=== PATIENT | male | born 1950 | race Hispanic/Latino ===

== ENCOUNTER 2020-10-16 14:14 | Inpatient (IN) | payer MEDICAID, SELFPAY ==
[2020-10-16 14:34] LABS: #Basophils 0.1 thou/uL (0.0-0.2); #Eosinphils 0.1 thou/uL (0.0-0.7); #Lymphocytes 1.3 thou/uL (1.20-3.40); #Monocytes 0.6 thou/uL (0.11-0.59); #Neutrophils 5.7 thou/uL (1.40-6.50); %Eosinophils 1.7 % (0.0-10.0); %Lymphocytes 16.4 % (21.0-51.0); %Neutrophils 73.9 % (42.0-75.0); Hemoglobin 9.4 g/dL (14.0-18.0); Mean Corpuscular HGB CONC 32.7 g/dL (32.0-36.0); Mean Corpuscular Hemoglobin 32.8 pg (27.0-31.0); Mean Platelet Volume 8.2 fL (7.4-10.4); Platelet Count 202 thou/uL (130-400); RBC Distribution Width 12.6 % (11.5-14.5); Red Blood Cell (RBC) Count 2.87 mill/uL (4.70-6.10); White Blood Cell (WBC) Count 7.8 thou/uL (4.8-10.8)
[2020-10-16 14:56] LABS: ALT (SGPT) 9 U/L (8-55); AST (SGOT) 8 U/L (5-34); Albumin 3.4 g/dL (3.4-4.8); Alkaline Phosphatase 104 U/L (40-110); Anion Gap 17 mmol/L (10-20); BUN (Urea Nitrogen) 66 mg/dL (8.4-25.7); Bilirubin, Total 0.4 mg/dL (0.2-1.2); Calc. Creatinine Clearance 0 mL/min (70-130); Carbon Dioxide 16 mmol/L (23-31); Chloride 111 mmol/L (98-107); Globulin 3.2 g/dL (2.4-3.5); Glucose 88 mg/dL (80-115); Potassium 6.1 mmol/L (3.5-5.1); Protein, Total 6.6 g/dL (5.8-8.1); Sodium 138 mmol/L (136-145)
[2020-10-16] MEDS ORDERED: Furosemide 40 MG/4 ML VIAL ONE (16:20)
[2020-10-16 18:36] VITALS: BMI 31.2
[2020-10-16 21:53] LABS: Creatinine, Urine 29.17 mg/dL (63-166)
[2020-10-16 22:05] LABS: Troponin I 0.019 ng/mL (< 0.028)
[2020-10-16] MEDS: Heparin 5,000 UNITS/ML VIAL SC SCH (22:05)
[2020-10-16] MEDS: LOKELMA 10 GM PACKET PO SCH (22:05)
[2020-10-17 04:38] LABS: #Eosinphils 0.2 thou/uL (0.0-0.7); #Lymphocytes 1.3 thou/uL (1.20-3.40); #Monocytes 0.4 thou/uL (0.11-0.59); #Neutrophils 3.7 thou/uL (1.40-6.50); %Basophils 0.8 % (0.0-1.0); %Eosinophils 2.7 % (0.0-10.0); %Lymphocytes 23.2 % (21.0-51.0); %Monocytes 7.8 % (0.0-10.0); %Neutrophils 65.5 % (42.0-75.0); Hemoglobin 8.2 g/dL (14.0-18.0); Mean Corpuscular HGB CONC 33.2 g/dL (32.0-36.0); Mean Corpuscular Hemoglobin 33.4 pg (27.0-31.0); Mean Platelet Volume 8.7 fL (7.4-10.4); Platelet Count 168 thou/uL (130-400); RBC Distribution Width 12.5 % (11.5-14.5); Red Blood Cell (RBC) Count 2.45 mill/uL (4.70-6.10); White Blood Cell (WBC) Count 5.6 thou/uL (4.8-10.8)
[2020-10-17 04:45] LABS: Hemoglobin A1c 4.9 % (4.0-6.0)
[2020-10-17 05:07] LABS: Anion Gap 14 mmol/L (10-20); BUN (Urea Nitrogen) 67 mg/dL (8.4-25.7); Calc. Creatinine Clearance 9 mL/min (70-130); Calcium 6.8 mg/dL (7.8-10.44); Carbon Dioxide 18 mmol/L (23-31); Cardiac Risk 2.6 (Less than 4.5); Chloride 111 mmol/L (98-107); Cholesterol 110 mg/dl (< 200 Desired); Glucose 71 mg/dL (80-115); HDL Cholesterol 43 mg/dL (>60 Neg Risk); Iron 53 ug/dL (65-175); Iron Binding Capacity, Total 243 mcg/dL (261-462); LDL Cholesterol, Calculated 56 mg/dL; Potassium 5.7 mmol/L (3.5-5.1); Sodium 137 mmol/L (136-145); Triglycerides 53 mg/dL (Less than 150); Uric Acid 6.4 mg/dL (3.5-7.2)
[2020-10-17 05:20] LABS: Ferritin 35.69 ng/mL (22-322); Thyroid Stimulating Hormone 5.9548 uIU/mL (0.35-4.94)
[2020-10-17 05:21] LABS: Vitamin D, 25 Hydroxy 10.8 ng/ml (> 30.0)
[2020-10-17 05:48] LABS: SARS-CoV-2 NAA Rapid Test Not Detected (NotDetected)
[2020-10-17] MEDS ORDERED: Heparin 10,000 UNITS/ 10 ML VIAL ONE (08:43)
[2020-10-17] MEDS: Heparin 5,000 UNITS/ML VIAL SC SCH ×3 (09:29→20:41)
[2020-10-17] MEDS: LOKELMA 10 GM PACKET PO SCH (09:38)
[2020-10-17] MEDS ORDERED: Lidocaine 1% w/Epinephrine 1:100K 20 ML VIAL FS SCH (10:00)
[2020-10-17] MEDS: Ferrous Sulfate 325 MG TAB PO SCH ×2 (10:33→17:55)
[2020-10-17] MEDS: Cyanocobalamin (Vitamin B-12) 1,000 MCG TAB PO SCH (10:33)
[2020-10-17] MEDS: Folic Acid 1 MG TAB PO SCH (10:33)
[2020-10-17] MEDS: hydrALAZINE 20 MG/ML VIAL SLOW IVP PRN ×2 (12:17→23:39)
[2020-10-17 12:32] LABS: HBSAB Concentration Less than 8.00 mIU/mL; HBSAg Index 0.14 S/CO (0-0.99); Hep B Core Total Ab Non-Reactive (NonReactive); Hep B Core Total Index 0.05 S/CO (0-0.79); Hep B Surf AB Non-Reactive (NonReactive); Hep B Surf Ag Non-Reactive S/CO (NonReactive); Hep C IgG Ab Non-Reactive (NonReactive); Hep C Index 0.79 S/CO (0-0.79)
[2020-10-17] MEDS ORDERED: Tuberculin PPD 0.1 ML VIAL I-DERMAL SCH (17:00)
[2020-10-17] MEDS: EPOETIN ALFA-EPBX (ESRD) 10,000 UNIT/ML VIAL IVP SCH (17:05)
[2020-10-18 05:49] LABS: Anion Gap 16 mmol/L (10-20); BUN (Urea Nitrogen) 48 mg/dL (8.4-25.7); Calc. Creatinine Clearance 11 mL/min (70-130); Calcium 6.8 mg/dL (7.8-10.44); Carbon Dioxide 20 mmol/L (23-31); Chloride 109 mmol/L (98-107); Glucose 72 mg/dL (80-115); Potassium 4.4 mmol/L (3.5-5.1); Sodium 141 mmol/L (136-145)
[2020-10-18] MEDS ORDERED: Heparin 10,000 UNITS/ 10 ML VIAL ONE (08:47)
[2020-10-18] MEDS: Calcium Carbonate 500 MG ChewTAB PO SCH ×3 (09:07→20:45)
[2020-10-18] MEDS: Ferrous Sulfate 325 MG TAB PO SCH ×2 (09:07→17:10)
[2020-10-18] MEDS: Folic Acid 1 MG TAB PO SCH (09:08)
[2020-10-18] MEDS: Cyanocobalamin (Vitamin B-12) 1,000 MCG TAB PO SCH (09:08)
[2020-10-18] MEDS: Amlodipine 5 MG TAB PO SCH (09:08)
[2020-10-18] MEDS: Heparin 5,000 UNITS/ML VIAL SC SCH ×3 (09:09→20:43)
[2020-10-18] MEDS: Calcitriol 0.25 MCG CAP PO SCH (09:09)
[2020-10-18 16:02] LABS: ANA Symphony (Qualitative) Negative (Negative); ANA Symphony (Quantitative) 0.3 Ratio (< 0.7 Negative); dsDNA IgG Antibody 0.6 IU/mL (<10 Negative)
[2020-10-18] MEDS: hydrALAZINE 20 MG/ML VIAL SLOW IVP PRN (17:10)
[2020-10-18] MEDS ORDERED: Carvedilol 6.25 MG TAB PO SCH (18:15)
[2020-10-18] MEDS: hydrALAZINE 25 MG TAB PO SCH (20:44)
[2020-10-18] MEDS: Iron, Sodium Ferric Gluconate 250 MG in Sodium Chloride 0.9% 250 ML 250 ML IVPB SCH (21:31)
[2020-10-19 05:22] LABS: Anion Gap 15 mmol/L (10-20); BUN (Urea Nitrogen) 32 mg/dL (8.4-25.7); Calc. Creatinine Clearance 14 mL/min (70-130); Calcium 6.8 mg/dL (7.8-10.44); Carbon Dioxide 23 mmol/L (23-31); Chloride 105 mmol/L (98-107); Glucose 85 mg/dL (80-115); Potassium 3.7 mmol/L (3.5-5.1); Sodium 139 mmol/L (136-145)
[2020-10-19 05:41] LABS: Free T4 (Free Thyroxine) 0.77 ng/dL (0.70-1.48); Thyroid Stimulating Hormone 5.4458 uIU/mL (0.35-4.94)
[2020-10-19] MEDS ORDERED: Heparin 5,000 UNITS/ML VIAL ONE (06:47)
[2020-10-19] MEDS ORDERED: XYLOCAINE 2%-EPI 1:100,000 20 ML VIAL ONE (06:47)
[2020-10-19] MEDS ORDERED: Bupivacaine PF 0.5% 30 ML VIAL ONE (06:47)
[2020-10-19] MEDS ORDERED: Heparin 10,000 UNITS/ 10 ML VIAL ONE (06:47)
[2020-10-19] MEDS ORDERED: Protamine Sulfate 50 MG/5 ML VIAL ONE (06:47)
[2020-10-19] MEDS ORDERED: Sodium Chloride 0.9% 30 ML ONE (06:47)
[2020-10-19] MEDS ORDERED: Ioversol 68 % 50 ML VIAL ONE (06:47)
[2020-10-19] MEDS ORDERED: Fentanyl 100 MCG/2 ML VIAL ONE ×2 (08:53)
[2020-10-19] MEDS ORDERED: Propofol 1,000 MG/100 ML VIAL IV ONE (09:37)
[2020-10-19] MEDS ORDERED: ePHEDrine Sulfate 50 MG/10 ML VIAL ONE (09:39)
[2020-10-19] MEDS ORDERED: Bupivacaine HCl 0.5%/Epinephrine 1:200,000/PF 30 ml Vial ONE (09:39)
[2020-10-19] MEDS: Calcium Carbonate 500 MG ChewTAB PO SCH ×3 (11:56→20:12)
[2020-10-19] MEDS: Carvedilol 6.25 MG TAB PO SCH ×2 (11:56→16:42)
[2020-10-19] MEDS: Heparin 5,000 UNITS/ML VIAL SC SCH ×3 (11:56→20:25)
[2020-10-19] MEDS: Ferrous Sulfate 325 MG TAB PO SCH ×2 (11:56→16:42)
[2020-10-19] MEDS: hydrALAZINE 25 MG TAB PO SCH ×2 (11:57→20:12)
[2020-10-19] MEDS ORDERED: Acetaminophen 500 MG TAB PO PRN (12:03)
[2020-10-19] MEDS ORDERED: traMADol HCl 50 MG TAB PO PRN (12:03)
[2020-10-19] MEDS ORDERED: CEFAZOLIN 2 GM in Premix Bag 1 BAG IVPB SCH (12:15)
[2020-10-19] MEDS: Amlodipine 5 MG TAB PO SCH (12:22)
[2020-10-19] MEDS: Calcitriol 0.25 MCG CAP PO SCH (12:23)
[2020-10-19] MEDS: Cyanocobalamin (Vitamin B-12) 1,000 MCG TAB PO SCH (12:23)
[2020-10-19] MEDS: Folic Acid 1 MG TAB PO SCH (12:23)
[2020-10-19] MEDS: Iron, Sodium Ferric Gluconate 250 MG in Sodium Chloride 0.9% 250 ML 250 ML IVPB SCH (12:32)
[2020-10-19] MEDS ORDERED: READ PPD TEST SITE PO SCH (17:00)
[2020-10-19] MEDS ORDERED: Iron, Sodium Ferric Gluconate 250 MG in Sodium Chloride 0.9% 250 ML 250 ML IVPB SCH (21:00)
[2020-10-20 04:46] LABS: #Eosinphils 0.1 thou/uL (0.0-0.7); #Monocytes 0.8 thou/uL (0.11-0.59); #Neutrophils 4.7 thou/uL (1.40-6.50); %Basophils 0.4 % (0.0-1.0); %Eosinophils 1.8 % (0.0-10.0); %Lymphocytes 14.7 % (21.0-51.0); %Monocytes 11.4 % (0.0-10.0); %Neutrophils 71.7 % (42.0-75.0); Hemoglobin 7.7 g/dL (14.0-18.0); Mean Corpuscular HGB CONC 34.4 g/dL (32.0-36.0); Mean Corpuscular Hemoglobin 34.2 pg (27.0-31.0); Mean Corpuscular Volume 99.5 fL (78.0-98.0); Platelet Count 129 thou/uL (130-400); RBC Distribution Width 12.4 % (11.5-14.5); Red Blood Cell (RBC) Count 2.25 mill/uL (4.70-6.10); White Blood Cell (WBC) Count 6.6 thou/uL (4.8-10.8)
[2020-10-20 05:07] LABS: Anion Gap 14 mmol/L (10-20); BUN (Urea Nitrogen) 35 mg/dL (8.4-25.7); Calc. Creatinine Clearance 11 mL/min (70-130); Calcium 7.1 mg/dL (7.8-10.44); Carbon Dioxide 24 mmol/L (23-31); Chloride 104 mmol/L (98-107); Glucose 77 mg/dL (80-115); Potassium 3.9 mmol/L (3.5-5.1); Sodium 138 mmol/L (136-145)
[2020-10-20] MEDS ORDERED: Heparin 10,000 UNITS/ 10 ML VIAL ONE (08:43)
[2020-10-20] MEDS ORDERED: traMADol HCl 50 MG TAB PO PRN (10:24)
[2020-10-20] MEDS: EPOETIN ALFA-EPBX (ESRD) 10,000 UNIT/ML VIAL IVP SCH (11:20)
[2020-10-20] MEDS: hydrALAZINE 25 MG TAB PO SCH ×2 (12:10→14:38)
[2020-10-20] MEDS: Calcium Carbonate 500 MG ChewTAB PO SCH ×2 (12:10→14:38)
[2020-10-20] MEDS: Cyanocobalamin (Vitamin B-12) 1,000 MCG TAB PO SCH (12:11)
[2020-10-20] MEDS: Calcitriol 0.25 MCG CAP PO SCH (12:11)
[2020-10-20] MEDS: Carvedilol 6.25 MG TAB PO SCH ×2 (12:11→17:06)
[2020-10-20] MEDS: Ferrous Sulfate 325 MG TAB PO SCH ×2 (12:11→17:07)
[2020-10-20] MEDS: Folic Acid 1 MG TAB PO SCH (12:11)
[2020-10-20] MEDS: Heparin 5,000 UNITS/ML VIAL SC SCH ×2 (12:12→14:39)
[2020-10-20 15:07] VITALS: BP 131/60; TEMP 98.1
[2020-10-20] MEDS ORDERED: READ PPD TEST SITE PO SCH (17:00)
[2020-10-24] MEDS ORDERED: Ergocalciferol 1.25 MG(50,000 UNITS) CAP PO SCH (09:00)
== END 2020-10-20 17:17 | disposition home or self-care (01) | DRG 673 ==
LOC: ERS 14:14 → 2NO 16:23
PROVIDERS: ADMIT Internal Medicine; ATTEND Internal Medicine
PROC: 02H633Z Insertion of Infusion Device into Right Atrium, Percutaneous Approach (ICD-10-PCS; 2020-10-17)
PROC: 5A1D70Z Performance of Urinary Filtration, Intermittent, Less than 6 Hours Per Day (ICD-10-PCS; 2020-10-18)
PROC: 031C0ZF Bypass Left Radial Artery to Lower Arm Vein, Open Approach (ICD-10-PCS; principal; 2020-10-19)
PROC: 0JH60XZ Insertion of Tunneled Vascular Access Device into Chest Subcutaneous Tissue and Fascia, Open Approach (ICD-10-PCS; 2020-10-19)
PROC: 02HV33Z Insertion of Infusion Device into Superior Vena Cava, Percutaneous Approach (ICD-10-PCS; 2020-10-19)
PROC: B548ZZA Ultrasonography of Superior Vena Cava, Guidance (ICD-10-PCS; 2020-10-19)
DX: N17.9 Acute kidney failure, unspecified (principal); I50.21 Acute systolic (congestive) heart failure; I13.2 Hypertensive heart and chronic kidney disease with heart failure and with stage 5 chronic kidney disease, or end stage renal disease; E87.2 Acidosis; N18.6 End stage renal disease; N25.81 Secondary hyperparathyroidism of renal origin; D50.9 Iron deficiency anemia, unspecified; D52.9 Folate deficiency anemia, unspecified; E55.9 Vitamin D deficiency, unspecified; E11.22 Type 2 diabetes mellitus with diabetic chronic kidney disease; D63.1 Anemia in chronic kidney disease; E87.5 Hyperkalemia; Z20.822 Contact with and (suspected) exposure to COVID-19; Z89.421 Acquired absence of other right toe(s); Z97.8 Presence of other specified devices
CPT/HCPCS: 36415; 36416; 71045; 76770; 80048; 80053; 80061; 82306; 82570; 82607; 82728; 82746; 83036; 83540; 83550; 83880; 83970; 84156; 84439; 84443; 84484; 84550; 85025; 86038; 86225; 86580; 86704; 86706; 86803; 87340; 90935; 93005; 93306; 93970; 94760; 96374; C1751; C1752; G0257; J0360; J0690; J1644; J1940; J2704; J2720; J2916; J3010; J7050; Q5105; Q9967; S0020; U0002; U0005

== ENCOUNTER 2020-10-27 13:18 | Inpatient (IN) | payer MEDICAID ==
[~2020-10-27 13:18] MED LIST: Heparin 10,000 UNITS/ 10 ML VIAL ONE
[2020-10-27 15:52] LABS: #Eosinphils 0.2 thou/uL (0.0-0.7); #Monocytes 0.8 thou/uL (0.11-0.59); #Neutrophils 4.9 thou/uL (1.40-6.50); %Basophils 0.5 % (0.0-1.0); %Eosinophils 2.3 % (0.0-10.0); %Lymphocytes 13.9 % (21.0-51.0); %Monocytes 11.7 % (0.0-10.0); %Neutrophils 71.6 % (42.0-75.0); Hemoglobin 7.8 g/dL (14.0-18.0); Mean Corpuscular HGB CONC 32.5 g/dL (32.0-36.0); Mean Corpuscular Hemoglobin 33.2 pg (27.0-31.0); Mean Platelet Volume 7.9 fL (7.4-10.4); Platelet Count 154 thou/uL (130-400); RBC Distribution Width 13.7 % (11.5-14.5); Red Blood Cell (RBC) Count 2.36 mill/uL (4.70-6.10); White Blood Cell (WBC) Count 6.9 thou/uL (4.8-10.8)
[2020-10-27 16:22] LABS: ALT (SGPT) 8 U/L (8-55); AST (SGOT) 16 U/L (5-34); Albumin 3.4 g/dL (3.4-4.8); Alkaline Phosphatase 108 U/L (40-110); Anion Gap 15 mmol/L (10-20); BUN (Urea Nitrogen) 55 mg/dL (8.4-25.7); Bilirubin, Total 0.5 mg/dL (0.2-1.2); Calc. Creatinine Clearance 0 mL/min (70-130); Calcium 8.3 mg/dL (7.8-10.44); Carbon Dioxide 24 mmol/L (23-31); Chloride 104 mmol/L (98-107); Globulin 3.1 g/dL (2.4-3.5); Glucose 96 mg/dL (80-115); Protein, Total 6.5 g/dL (5.8-8.1); Sodium 136 mmol/L (136-145)
[2020-10-27 16:30] LABS: Potassium 6.6 mmol/L (3.5-5.1)
[2020-10-27] MEDS ORDERED: Calcium Gluc 4.6 MEQ/10 ML (100 MG/ML) ONE (17:45)
[2020-10-27] MEDS ORDERED: Sodium Bicarb 50 MEQ/50 ML Abboject 8.4% SYRINGE ONE (17:45)
[2020-10-27] MEDS ORDERED: Albuterol Sulfate 1.25 MG/3 ML NEB ONE (17:45)
[2020-10-27] MEDS ORDERED: Dextrose 50% Abboject 50 ML SYRINGE ONE (17:45)
[2020-10-27] MEDS ORDERED: Insulin Regular 300 UNITS/3 ML VIAL ONE (17:45)
[2020-10-27 19:22] LABS: Anion Gap 19 mmol/L (10-20); BUN (Urea Nitrogen) 54 mg/dL (8.4-25.7); Calc. Creatinine Clearance 0 mL/min (70-130); Calcium 8.4 mg/dL (7.8-10.44); Carbon Dioxide 22 mmol/L (23-31); Chloride 103 mmol/L (98-107); Potassium 6.3 mmol/L (3.5-5.1); Sodium 138 mmol/L (136-145)
[2020-10-27 19:31] LABS: SARS-CoV-2 NAA Rapid Test Not Detected (NotDetected)
[2020-10-27 19:33] LABS: Glucose 140 mg/dL (80-115)
[2020-10-28] MEDS ORDERED: Ondansetron PF 4 MG/2 ML Vial IVP PRN (01:00)
[2020-10-28] MEDS ORDERED: Acetaminophen 325 MG TAB PO PRN (01:00)
[2020-10-28] MEDS ORDERED: hydrALAZINE 20 MG/ML VIAL SLOW IVP PRN (01:02)
[2020-10-28] MEDS ORDERED: Dextrose 50% Abboject 50 ML SYRINGE SLOW IVP PRN (01:07)
[2020-10-28] MEDS ORDERED: HumaLOG 300 UNITS/3 ML VIAL SC PRN ×2 (01:07)
[2020-10-28] MEDS ORDERED: Dextrose 5% in Water 1,000 ML IV PRN (01:07)
[2020-10-28 02:15] LABS: #Eosinphils 0.1 thou/uL (0.0-0.7); #Monocytes 0.7 thou/uL (0.11-0.59); #Neutrophils 4.5 thou/uL (1.40-6.50); %Basophils 0.3 % (0.0-1.0); %Eosinophils 2.1 % (0.0-10.0); %Lymphocytes 15.2 % (21.0-51.0); %Monocytes 10.7 % (0.0-10.0); %Neutrophils 71.8 % (42.0-75.0); Hemoglobin 7.3 g/dL (14.0-18.0); Mean Corpuscular HGB CONC 32.9 g/dL (32.0-36.0); Mean Corpuscular Hemoglobin 33.5 pg (27.0-31.0); Mean Platelet Volume 7.7 fL (7.4-10.4); Platelet Count 143 thou/uL (130-400); RBC Distribution Width 13.7 % (11.5-14.5); Red Blood Cell (RBC) Count 2.17 mill/uL (4.70-6.10); White Blood Cell (WBC) Count 6.2 thou/uL (4.8-10.8)
[2020-10-28 02:33] LABS: Anion Gap 11 mmol/L (10-20); BUN (Urea Nitrogen) 28 mg/dL (8.4-25.7); Calc. Creatinine Clearance 0 mL/min (70-130); Calcium 8.2 mg/dL (7.8-10.44); Carbon Dioxide 27 mmol/L (23-31); Chloride 103 mmol/L (98-107); Glucose 168 mg/dL (80-115); Potassium 4.4 mmol/L (3.5-5.1); Sodium 137 mmol/L (136-145)
[2020-10-28 04:06] VITALS: BMI 33.4
[2020-10-28] MEDS: Amlodipine 5 MG TAB PO SCH (08:47)
[2020-10-28] MEDS: Carvedilol 6.25 MG TAB PO SCH ×2 (08:48→17:39)
[2020-10-28] MEDS ORDERED: EPOETIN ALFA-EPBX (ESRD) 10,000 UNIT/ML VIAL SC SCH (16:00)
[2020-10-29 05:16] LABS: #Eosinphils 0.2 thou/uL (0.0-0.7); #Lymphocytes 1.3 thou/uL (1.20-3.40); #Monocytes 0.7 thou/uL (0.11-0.59); #Neutrophils 3.3 thou/uL (1.40-6.50); %Basophils 0.8 % (0.0-1.0); %Lymphocytes 24.6 % (21.0-51.0); %Monocytes 12.1 % (0.0-10.0); %Neutrophils 59.6 % (42.0-75.0); Mean Corpuscular HGB CONC 32.4 g/dL (32.0-36.0); Mean Corpuscular Hemoglobin 33.3 pg (27.0-31.0); Platelet Count 153 thou/uL (130-400); RBC Distribution Width 13.5 % (11.5-14.5); Red Blood Cell (RBC) Count 2.09 mill/uL (4.70-6.10); White Blood Cell (WBC) Count 5.5 thou/uL (4.8-10.8)
[2020-10-29 05:37] LABS: Anion Gap 15 mmol/L (10-20); BUN (Urea Nitrogen) 42 mg/dL (8.4-25.7); Calc. Creatinine Clearance 14 mL/min (70-130); Calcium 7.8 mg/dL (7.8-10.44); Carbon Dioxide 26 mmol/L (23-31); Chloride 103 mmol/L (98-107); Glucose 81 mg/dL (80-115); Potassium 5.5 mmol/L (3.5-5.1); Sodium 138 mmol/L (136-145)
[2020-10-29] MEDS ORDERED: Heparin 5,000 UNITS/ML VIAL SC SCH (09:00)
[2020-10-29] MEDS ORDERED: Heparin 10,000 UNITS/ 10 ML VIAL ONE (09:13)
[2020-10-29] MEDS: Carvedilol 6.25 MG TAB PO SCH (11:56)
[2020-10-29] MEDS: Amlodipine 5 MG TAB PO SCH (11:57)
[2020-10-29 12:26] VITALS: BP 178/71; TEMP 97.9
== END 2020-10-29 14:11 | disposition home or self-care (01) | DRG 291 ==
LOC: ERS 13:18 → 2SW 18:32 → OBSVTOIN 10-28 20:44
PROVIDERS: ADMIT Internal Medicine; ATTEND Internal Medicine
PROC: 5A1D70Z Performance of Urinary Filtration, Intermittent, Less than 6 Hours Per Day (ICD-10-PCS; principal; 2020-10-28)
DX: I13.2 Hypertensive heart and chronic kidney disease with heart failure and with stage 5 chronic kidney disease, or end stage renal disease (principal); I50.23 Acute on chronic systolic (congestive) heart failure; N18.6 End stage renal disease; N17.9 Acute kidney failure, unspecified; D63.1 Anemia in chronic kidney disease; E78.5 Hyperlipidemia, unspecified; E11.22 Type 2 diabetes mellitus with diabetic chronic kidney disease; E66.9 Obesity, unspecified; Z99.2 Dependence on renal dialysis; Z79.899 Other long term (current) drug therapy; Z87.891 Personal history of nicotine dependence; Z68.33 Body mass index [BMI] 33.0-33.9, adult; Z91.15 Patient's noncompliance with renal dialysis
CPT/HCPCS: 36415; 36416; 80048; 80053; 85025; 90935; 93005; 96372; 96374; 96375; G0257; G0378; J1644; J1815; J2001; Q5105; U0002; U0005

== ENCOUNTER 2020-11-04 13:40 | Emergency (ER) | payer MEDICAID, SELFPAY ==
[2020-11-04 14:28] LABS: #Eosinphils 0.1 thou/uL (0.0-0.7); #Lymphocytes 1.2 thou/uL (1.20-3.40); #Monocytes 0.8 thou/uL (0.11-0.59); #Neutrophils 5.5 thou/uL (1.40-6.50); %Basophils 0.1 % (0.0-1.0); %Eosinophils 1.4 % (0.0-10.0); %Lymphocytes 15.5 % (21.0-51.0); %Monocytes 10.2 % (0.0-10.0); %Neutrophils 72.8 % (42.0-75.0); Hemoglobin 8.2 g/dL (14.0-18.0); Mean Corpuscular HGB CONC 32.6 g/dL (32.0-36.0); Mean Corpuscular Hemoglobin 33.6 pg (27.0-31.0); Mean Platelet Volume 7.8 fL (7.4-10.4); Platelet Count 215 thou/uL (130-400); RBC Distribution Width 13.9 % (11.5-14.5); Red Blood Cell (RBC) Count 2.45 mill/uL (4.70-6.10); White Blood Cell (WBC) Count 7.5 thou/uL (4.8-10.8)
[2020-11-04 14:48] LABS: ALT (SGPT) 8 U/L (8-55); AST (SGOT) 12 U/L (5-34); Albumin 3.6 g/dL (3.4-4.8); Alkaline Phosphatase 122 U/L (40-110); Anion Gap 16 mmol/L (10-20); BUN (Urea Nitrogen) 56 mg/dL (8.4-25.7); Bilirubin, Total 0.4 mg/dL (0.2-1.2); Calc. Creatinine Clearance 0 mL/min (70-130); Calcium 8.2 mg/dL (7.8-10.44); Carbon Dioxide 26 mmol/L (23-31); Chloride 98 mmol/L (98-107); Globulin 2.9 g/dL (2.4-3.5); Glucose 158 mg/dL (80-115); Potassium 5.7 mmol/L (3.5-5.1); Protein, Total 6.5 g/dL (5.8-8.1); Sodium 134 mmol/L (136-145)
[2020-11-04 16:41] LABS: HBSAg Index 0.22 S/CO (0-0.99); Hep B Surf Ag Non-Reactive S/CO (NonReactive)
== END 2020-11-05 00:13 | disposition home or self-care (01) ==
LOC: ERS 13:40
DX: I12.0 Hypertensive chronic kidney disease with stage 5 chronic kidney disease or end stage renal disease (principal); E11.22 Type 2 diabetes mellitus with diabetic chronic kidney disease; N18.6 End stage renal disease; E87.6 Hypokalemia; Z99.2 Dependence on renal dialysis
CPT/HCPCS: 36415; 71045; 80053; 83880; 85025; 87340; 90935; 93005; G0257; J1644

== ENCOUNTER 2020-11-09 15:19 | Emergency (ER) | payer MEDICAID, SELFPAY ==
[2020-11-09 16:20] LABS: #Eosinphils 0.2 thou/uL (0.0-0.7); #Lymphocytes 1.1 thou/uL (1.20-3.40); #Monocytes 0.7 thou/uL (0.11-0.59); #Neutrophils 4.6 thou/uL (1.40-6.50); %Basophils 0.6 % (0.0-1.0); %Eosinophils 2.3 % (0.0-10.0); %Lymphocytes 16.8 % (21.0-51.0); %Monocytes 10.7 % (0.0-10.0); %Neutrophils 69.5 % (42.0-75.0); Hemoglobin 8.2 g/dL (14.0-18.0); Mean Corpuscular HGB CONC 33.4 g/dL (32.0-36.0); Mean Corpuscular Hemoglobin 34.8 pg (27.0-31.0); Mean Platelet Volume 7.6 fL (7.4-10.4); Platelet Count 184 thou/uL (130-400); RBC Distribution Width 13.7 % (11.5-14.5); Red Blood Cell (RBC) Count 2.35 mill/uL (4.70-6.10); White Blood Cell (WBC) Count 6.7 thou/uL (4.8-10.8)
[2020-11-09 16:45] LABS: ALT (SGPT) 14 U/L (8-55); AST (SGOT) 14 U/L (5-34); Albumin 3.5 g/dL (3.4-4.8); Alkaline Phosphatase 135 U/L (40-110); Anion Gap 17 mmol/L (10-20); BUN (Urea Nitrogen) 61 mg/dL (8.4-25.7); Bilirubin, Total 0.5 mg/dL (0.2-1.2); CK (CPK) 66 U/L (30-200); Calc. Creatinine Clearance 0 mL/min (70-130); Calcium 8.2 mg/dL (7.8-10.44); Carbon Dioxide 23 mmol/L (23-31); Chloride 103 mmol/L (98-107); Globulin 3.1 g/dL (2.4-3.5); Glucose 124 mg/dL (80-115); Protein, Total 6.6 g/dL (5.8-8.1); Sodium 137 mmol/L (136-145)
== END 2020-11-10 00:17 | disposition home or self-care (01) ==
LOC: ERS 15:19
DX: I12.0 Hypertensive chronic kidney disease with stage 5 chronic kidney disease or end stage renal disease (principal); E11.22 Type 2 diabetes mellitus with diabetic chronic kidney disease; N18.6 End stage renal disease; Z99.2 Dependence on renal dialysis
CPT/HCPCS: 36415; 71045; 80053; 82550; 83880; 84484; 85025; 93005; J1644

== ENCOUNTER 2020-11-16 11:59 | Emergency (ER) | payer MEDICAID, SELFPAY ==
[2020-11-16 12:49] LABS: #Eosinphils 0.1 thou/uL (0.0-0.7); #Lymphocytes 1.1 thou/uL (1.20-3.40); #Monocytes 0.7 thou/uL (0.11-0.59); #Neutrophils 5.3 thou/uL (1.40-6.50); %Basophils 0.3 % (0.0-1.0); %Lymphocytes 15.6 % (21.0-51.0); %Monocytes 9.5 % (0.0-10.0); %Neutrophils 72.5 % (42.0-75.0); Hemoglobin 8.6 g/dL (14.0-18.0); Mean Corpuscular HGB CONC 32.2 g/dL (32.0-36.0); Mean Corpuscular Hemoglobin 33.6 pg (27.0-31.0); Mean Platelet Volume 8.6 fL (7.4-10.4); Platelet Count 202 thou/uL (130-400); RBC Distribution Width 13.1 % (11.5-14.5); Red Blood Cell (RBC) Count 2.55 mill/uL (4.70-6.10); White Blood Cell (WBC) Count 7.3 thou/uL (4.8-10.8)
[2020-11-16 13:06] LABS: ALT (SGPT) 15 U/L (8-55); AST (SGOT) 10 U/L (5-34); Albumin 3.7 g/dL (3.4-4.8); Alkaline Phosphatase 162 U/L (40-110); Anion Gap 18 mmol/L (10-20); BUN (Urea Nitrogen) 75 mg/dL (8.4-25.7); Bilirubin, Total 0.5 mg/dL (0.2-1.2); Calc. Creatinine Clearance 0 mL/min (70-130); Calcium 8.5 mg/dL (7.8-10.44); Carbon Dioxide 20 mmol/L (23-31); Chloride 103 mmol/L (98-107); Globulin 3.3 g/dL (2.4-3.5); Glucose 115 mg/dL (80-115); Potassium 6.2 mmol/L (3.5-5.1); Sodium 135 mmol/L (136-145)
[2020-11-16] MEDS ORDERED: EPOETIN ALFA-EPBX (ESRD) 10,000 UNIT/ML VIAL IVP SCH (15:30)
[2020-11-16] MEDS ORDERED: Epoetin (ESRD) 20,000 UNITS/ML IVP SCH (15:30)
== END 2020-11-16 23:37 | disposition home or self-care (01) ==
LOC: ERS 11:59
DX: I12.0 Hypertensive chronic kidney disease with stage 5 chronic kidney disease or end stage renal disease (principal); N18.6 End stage renal disease; E11.22 Type 2 diabetes mellitus with diabetic chronic kidney disease; E87.5 Hyperkalemia; E87.70 Fluid overload, unspecified; R26.9 Unspecified abnormalities of gait and mobility; Z99.2 Dependence on renal dialysis
CPT/HCPCS: 36415; 71045; 80053; 83880; 84484; 85025; 90935; 93005; G0257

== ENCOUNTER 2020-11-30 13:17 | Emergency (ER) | payer MEDICAID, SELFPAY | END 2020-12-01 00:05 | disposition home or self-care (01) | LOC: ERS 13:17 | DX: I12.0 Hypertensive chronic kidney disease with stage 5 chronic kidney disease or end stage renal disease (principal); E11.22 Type 2 diabetes mellitus with diabetic chronic kidney disease; N18.6 End stage renal disease; E87.5 Hyperkalemia; E87.2 Acidosis; D63.1 Anemia in chronic kidney disease; Z99.2 Dependence on renal dialysis | CPT/HCPCS: 36415; 80053; 83735; 83880; 84100; 85025; 90935; 99283; G0257; J1644; Q5105 ==

== ENCOUNTER 2020-12-15 13:28 | Emergency (ER) | payer MEDICAID, SELFPAY ==
[2020-12-15 14:18] LABS: #Eosinphils 0.1 thou/uL (0.0-0.7); #Lymphocytes 1.4 thou/uL (1.20-3.40); #Monocytes 0.6 thou/uL (0.11-0.59); #Neutrophils 3.5 thou/uL (1.40-6.50); %Basophils 0.1 % (0.0-1.0); %Eosinophils 1.1 % (0.0-10.0); %Lymphocytes 24.5 % (21.0-51.0); %Monocytes 11.2 % (0.0-10.0); %Neutrophils 63.2 % (42.0-75.0); Hemoglobin 9.8 g/dL (14.0-18.0); Mean Corpuscular HGB CONC 33.6 g/dL (32.0-36.0); Mean Corpuscular Hemoglobin 34.9 pg (27.0-31.0); Mean Platelet Volume 8.8 fL (7.4-10.4); Platelet Count 165 thou/uL (130-400); RBC Distribution Width 12.3 % (11.5-14.5); Red Blood Cell (RBC) Count 2.81 mill/uL (4.70-6.10); White Blood Cell (WBC) Count 5.6 thou/uL (4.8-10.8)
[2020-12-15 14:41] LABS: ALT (SGPT) 16 U/L (8-55); AST (SGOT) 8 U/L (5-34); Albumin 4.1 g/dL (3.4-4.8); Alkaline Phosphatase 144 U/L (40-110); Anion Gap 17 mmol/L (10-20); BUN (Urea Nitrogen) 84 mg/dL (8.4-25.7); Bilirubin, Total 0.7 mg/dL (0.2-1.2); Calc. Creatinine Clearance 0 mL/min (70-130); Calcium 8.7 mg/dL (7.8-10.44); Carbon Dioxide 20 mmol/L (23-31); Chloride 109 mmol/L (98-107); Globulin 3.6 g/dL (2.4-3.5); Glucose 95 mg/dL (80-115); Potassium 5.1 mmol/L (3.5-5.1); Protein, Total 7.7 g/dL (5.8-8.1); Sodium 141 mmol/L (136-145)
== END 2020-12-15 22:12 | disposition home or self-care (01) ==
LOC: ERS 13:28
DX: I12.0 Hypertensive chronic kidney disease with stage 5 chronic kidney disease or end stage renal disease (principal); N18.6 End stage renal disease; E11.22 Type 2 diabetes mellitus with diabetic chronic kidney disease; E78.5 Hyperlipidemia, unspecified; Z99.2 Dependence on renal dialysis
CPT/HCPCS: 71045; 80053; 85025; 90935; 93005; G0257; J1644

== ENCOUNTER 2020-12-21 12:56 | Emergency (ER) | payer MEDICAID, SELFPAY ==
[2020-12-21 13:45] LABS: #Eosinphils 0.1 thou/uL (0.0-0.7); #Lymphocytes 1.2 thou/uL (1.20-3.40); #Monocytes 0.4 thou/uL (0.11-0.59); %Basophils 0.3 % (0.0-1.0); %Eosinophils 1.2 % (0.0-10.0); %Lymphocytes 20.6 % (21.0-51.0); %Monocytes 7.2 % (0.0-10.0); %Neutrophils 70.6 % (42.0-75.0); Hemoglobin 8.3 g/dL (14.0-18.0); Mean Corpuscular HGB CONC 33.5 g/dL (32.0-36.0); Mean Corpuscular Hemoglobin 34.1 pg (27.0-31.0); Platelet Count 153 thou/uL (130-400); Red Blood Cell (RBC) Count 2.42 mill/uL (4.70-6.10); White Blood Cell (WBC) Count 5.7 thou/uL (4.8-10.8)
[2020-12-21 14:06] LABS: ALT (SGPT) 10 U/L (8-55); AST (SGOT) 6 U/L (5-34); Albumin 3.6 g/dL (3.4-4.8); Alkaline Phosphatase 128 U/L (40-110); Anion Gap 16 mmol/L (10-20); BUN (Urea Nitrogen) 80 mg/dL (8.4-25.7); Bilirubin, Total 0.5 mg/dL (0.2-1.2); Calc. Creatinine Clearance 0 mL/min (70-130); Calcium 8.1 mg/dL (7.8-10.44); Carbon Dioxide 22 mmol/L (23-31); Chloride 109 mmol/L (98-107); Globulin 3.2 g/dL (2.4-3.5); Glucose 139 mg/dL (80-115); Potassium 5.9 mmol/L (3.5-5.1); Protein, Total 6.8 g/dL (5.8-8.1); Sodium 141 mmol/L (136-145)
[2020-12-21] MEDS ORDERED: EPOETIN ALFA-EPBX (ESRD) 10,000 UNIT/ML VIAL IVP SCH (17:15)
== END 2020-12-21 23:59 | disposition home or self-care (01) ==
LOC: ERS 12:56
DX: E87.70 Fluid overload, unspecified (principal); I10 Essential (primary) hypertension; E11.9 Type 2 diabetes mellitus without complications; E78.5 Hyperlipidemia, unspecified; Z99.2 Dependence on renal dialysis
CPT/HCPCS: 36415; 80053; 85025; 90935; 93005; G0257; J1644; Q5105

== ENCOUNTER 2020-12-28 12:27 | Emergency (ER) | payer MEDICAID, SELFPAY ==
[2020-12-28 13:00] LABS: #Eosinphils 0.1 thou/uL (0.0-0.7); #Lymphocytes 1.4 thou/uL (1.20-3.40); #Monocytes 0.5 thou/uL (0.11-0.59); #Neutrophils 4.7 thou/uL (1.40-6.50); %Basophils 0.5 % (0.0-1.0); %Eosinophils 1.2 % (0.0-10.0); %Lymphocytes 20.7 % (21.0-51.0); %Neutrophils 69.5 % (42.0-75.0); Mean Corpuscular HGB CONC 33.5 g/dL (32.0-36.0); Mean Corpuscular Hemoglobin 33.9 pg (27.0-31.0); Mean Platelet Volume 8.3 fL (7.4-10.4); Platelet Count 203 thou/uL (130-400); RBC Distribution Width 12.3 % (11.5-14.5); Red Blood Cell (RBC) Count 2.65 mill/uL (4.70-6.10); White Blood Cell (WBC) Count 6.7 thou/uL (4.8-10.8)
[2020-12-28 13:24] LABS: ALT (SGPT) 12 U/L (8-55); AST (SGOT) 8 U/L (5-34); Albumin 3.7 g/dL (3.4-4.8); Alkaline Phosphatase 151 U/L (40-110); Anion Gap 18 mmol/L (10-20); BUN (Urea Nitrogen) 78 mg/dL (8.4-25.7); Bilirubin, Total 0.6 mg/dL (0.2-1.2); Calc. Creatinine Clearance 0 mL/min (70-130); Calcium 8.1 mg/dL (7.8-10.44); Carbon Dioxide 19 mmol/L (23-31); Chloride 107 mmol/L (98-107); Globulin 3.5 g/dL (2.4-3.5); Glucose 105 mg/dL (80-115); Potassium 5.8 mmol/L (3.5-5.1); Protein, Total 7.2 g/dL (5.8-8.1); Sodium 138 mmol/L (136-145)
[2020-12-28] MEDS ORDERED: Acetaminophen 500 MG TAB ONE (19:45)
[2020-12-28] MEDS ORDERED: EPOETIN ALFA-EPBX (ESRD) 10,000 UNIT/ML VIAL IVP SCH (20:00)
== END 2020-12-29 00:45 | disposition home or self-care (01) ==
LOC: ERS 12:27
DX: I12.0 Hypertensive chronic kidney disease with stage 5 chronic kidney disease or end stage renal disease (principal); N18.6 End stage renal disease; E87.5 Hyperkalemia; E11.22 Type 2 diabetes mellitus with diabetic chronic kidney disease; Z99.2 Dependence on renal dialysis; E78.5 Hyperlipidemia, unspecified
CPT/HCPCS: 36415; 80053; 85025; 90935; 93005; G0257; J1644; Q5105

== ENCOUNTER 2020-12-31 08:22 | Emergency (ER) | payer MEDICAID, SELFPAY ==
[2020-12-31] MEDS ORDERED: Heparin 10,000 UNITS/ 10 ML VIAL ONE (08:26)
[2020-12-31 09:40] LABS: #Eosinphils 0.1 thou/uL (0.0-0.7); #Lymphocytes 1.4 thou/uL (1.20-3.40); #Monocytes 0.8 thou/uL (0.11-0.59); #Neutrophils 4.4 thou/uL (1.40-6.50); %Basophils 0.2 % (0.0-1.0); %Eosinophils 1.7 % (0.0-10.0); %Lymphocytes 20.9 % (21.0-51.0); %Monocytes 11.8 % (0.0-10.0); %Neutrophils 65.3 % (42.0-75.0); Hemoglobin 8.7 g/dL (14.0-18.0); Mean Corpuscular HGB CONC 33.1 g/dL (32.0-36.0); Mean Corpuscular Hemoglobin 33.5 pg (27.0-31.0); Mean Platelet Volume 8.6 fL (7.4-10.4); Platelet Count 156 thou/uL (130-400); RBC Distribution Width 12.2 % (11.5-14.5); Red Blood Cell (RBC) Count 2.61 mill/uL (4.70-6.10); White Blood Cell (WBC) Count 6.7 thou/uL (4.8-10.8)
[2020-12-31 09:58] LABS: ALT (SGPT) 11 U/L (8-55); AST (SGOT) 8 U/L (5-34); Albumin 3.8 g/dL (3.4-4.8); Alkaline Phosphatase 152 U/L (40-110); Anion Gap 16 mmol/L (10-20); BUN (Urea Nitrogen) 61 mg/dL (8.4-25.7); Bilirubin, Total 0.5 mg/dL (0.2-1.2); Calc. Creatinine Clearance 0 mL/min (70-130); Calcium 7.8 mg/dL (7.8-10.44); Carbon Dioxide 24 mmol/L (23-31); Chloride 103 mmol/L (98-107); Globulin 3.3 g/dL (2.4-3.5); Glucose 101 mg/dL (80-115); Potassium 5.6 mmol/L (3.5-5.1); Protein, Total 7.1 g/dL (5.8-8.1); Sodium 137 mmol/L (136-145)
== END 2020-12-31 20:19 | disposition home or self-care (01) ==
LOC: ERS 08:22
DX: I12.0 Hypertensive chronic kidney disease with stage 5 chronic kidney disease or end stage renal disease (principal); E11.22 Type 2 diabetes mellitus with diabetic chronic kidney disease; N18.6 End stage renal disease; E87.5 Hyperkalemia; E78.5 Hyperlipidemia, unspecified; Z99.2 Dependence on renal dialysis
CPT/HCPCS: 36415; 71045; 80053; 85025; 90935; 93005; 94760; G0257; J1644

== ENCOUNTER 2021-01-07 10:32 | Emergency (ER) | payer MEDICAID, SELFPAY ==
[2021-01-07 13:23] LABS: #Eosinphils 0.1 thou/uL (0.0-0.7); #Lymphocytes 1.8 thou/uL (1.20-3.40); #Monocytes 0.6 thou/uL (0.11-0.59); #Neutrophils 4.1 thou/uL (1.40-6.50); %Basophils 0.5 % (0.0-1.0); %Eosinophils 1.9 % (0.0-10.0); %Lymphocytes 26.8 % (21.0-51.0); %Monocytes 9.4 % (0.0-10.0); %Neutrophils 61.4 % (42.0-75.0); Hemoglobin 9.6 g/dL (14.0-18.0); Mean Corpuscular HGB CONC 34.1 g/dL (32.0-36.0); Mean Corpuscular Hemoglobin 34.1 pg (27.0-31.0); Mean Platelet Volume 8.5 fL (7.4-10.4); Platelet Count 157 thou/uL (130-400); RBC Distribution Width 12.1 % (11.5-14.5); Red Blood Cell (RBC) Count 2.81 mill/uL (4.70-6.10); White Blood Cell (WBC) Count 6.7 thou/uL (4.8-10.8)
[2021-01-07 13:43] LABS: Phosphorus 5.5 mg/dL (2.3-4.7)
[2021-01-07 13:46] LABS: ALT (SGPT) 15 U/L (8-55); AST (SGOT) 9 U/L (5-34); Alkaline Phosphatase 169 U/L (40-110); Anion Gap 20 mmol/L (10-20); BUN (Urea Nitrogen) 92 mg/dL (8.4-25.7); Bilirubin, Total 0.7 mg/dL (0.2-1.2); Calc. Creatinine Clearance 0 mL/min (70-130); Calcium 8.1 mg/dL (7.8-10.44); Carbon Dioxide 18 mmol/L (23-31); Chloride 104 mmol/L (98-107); Globulin 3.9 g/dL (2.4-3.5); Glucose 89 mg/dL (80-115); Potassium 6.2 mmol/L (3.5-5.1); Protein, Total 7.9 g/dL (5.8-8.1); Sodium 136 mmol/L (136-145)
[2021-01-07 14:04] LABS: CKMB 1.9 ng/mL (0-6.6)
== END 2021-01-07 19:53 | disposition home or self-care (01) ==
LOC: ERS 10:32
DX: I12.0 Hypertensive chronic kidney disease with stage 5 chronic kidney disease or end stage renal disease (principal); E11.22 Type 2 diabetes mellitus with diabetic chronic kidney disease; N18.6 End stage renal disease; Z99.2 Dependence on renal dialysis
CPT/HCPCS: 36415; 80053; 82553; 83735; 83880; 84100; 84484; 85025; 90935; G0257; J1644

== ENCOUNTER 2021-01-21 07:50 | Emergency (ER) | payer MEDICAID ==
[2021-01-21 08:43] LABS: #Eosinphils 0.1 thou/uL (0.0-0.7); #Lymphocytes 1.5 thou/uL (1.20-3.40); #Monocytes 0.7 thou/uL (0.11-0.59); #Neutrophils 3.9 thou/uL (1.40-6.50); %Basophils 0.6 % (0.0-1.0); %Eosinophils 2.2 % (0.0-10.0); %Lymphocytes 23.8 % (21.0-51.0); %Monocytes 11.1 % (0.0-10.0); %Neutrophils 62.3 % (42.0-75.0); Hemoglobin 9.2 g/dL (14.0-18.0); Mean Corpuscular HGB CONC 32.9 g/dL (32.0-36.0); Mean Corpuscular Hemoglobin 33.4 pg (27.0-31.0); Mean Platelet Volume 8.4 fL (7.4-10.4); Platelet Count 187 thou/uL (130-400); RBC Distribution Width 12.1 % (11.5-14.5); Red Blood Cell (RBC) Count 2.77 mill/uL (4.70-6.10); White Blood Cell (WBC) Count 6.2 thou/uL (4.8-10.8)
[2021-01-21] MEDS ORDERED: Heparin 10,000 UNITS/ 10 ML VIAL ONE (08:44)
[2021-01-21 09:03] LABS: Anion Gap 17 mmol/L (10-20); BUN (Urea Nitrogen) 68 mg/dL (8.4-25.7); Calc. Creatinine Clearance 0 mL/min (70-130); Calcium 8.5 mg/dL (7.8-10.44); Carbon Dioxide 25 mmol/L (23-31); Chloride 101 mmol/L (98-107); Glucose 75 mg/dL (80-115); Potassium 5.5 mmol/L (3.5-5.1); Sodium 137 mmol/L (136-145)
== END 2021-01-21 17:14 | disposition home or self-care (01) ==
LOC: ERS 07:50
DX: I12.0 Hypertensive chronic kidney disease with stage 5 chronic kidney disease or end stage renal disease (principal); E11.22 Type 2 diabetes mellitus with diabetic chronic kidney disease; N18.6 End stage renal disease; E78.5 Hyperlipidemia, unspecified; Z99.2 Dependence on renal dialysis; E87.70 Fluid overload, unspecified
CPT/HCPCS: 36415; 71045; 80048; 85025; 93005; J1644

== ENCOUNTER 2021-01-28 08:41 | Emergency (ER) | payer MEDICAID ==
[2021-01-28 09:42] LABS: Anion Gap 19 mmol/L (10-20); BUN (Urea Nitrogen) 90 mg/dL (8.4-25.7); Calc. Creatinine Clearance 0 mL/min (70-130); Calcium 7.6 mg/dL (7.8-10.44); Carbon Dioxide 18 mmol/L (23-31); Chloride 103 mmol/L (98-107); Glucose 118 mg/dL (80-115); Potassium 5.3 mmol/L (3.5-5.1); Sodium 135 mmol/L (136-145)
[2021-01-28] MEDS ORDERED: Heparin 10,000 UNITS/ 10 ML VIAL ONE (10:32)
[2021-01-28 11:24] LABS: #Basophils 0.1 thou/uL (0.0-0.2); #Eosinphils 0.1 thou/uL (0.0-0.7); #Lymphocytes 1.3 thou/uL (1.20-3.40); #Monocytes 0.6 thou/uL (0.11-0.59); #Neutrophils 3.6 thou/uL (1.40-6.50); %Basophils 0.9 % (0.0-1.0); %Eosinophils 1.6 % (0.0-10.0); %Lymphocytes 23.3 % (21.0-51.0); %Monocytes 10.8 % (0.0-10.0); %Neutrophils 63.4 % (42.0-75.0); Hemoglobin 9.1 g/dL (14.0-18.0); Mean Corpuscular HGB CONC 32.9 g/dL (32.0-36.0); Mean Corpuscular Hemoglobin 32.5 pg (27.0-31.0); Mean Platelet Volume 9.9 fL (7.4-10.4); Platelet Count 150 thou/uL (130-400); RBC Distribution Width 11.8 % (11.5-14.5); White Blood Cell (WBC) Count 5.7 thou/uL (4.8-10.8)
[2021-01-28] MEDS ORDERED: Epoetin (ESRD) 20,000 UNITS/ML IVP SCH (16:15)
[2021-01-28] MEDS ORDERED: Calcium Acetate 667 MG CAP PO SCH (17:00)
[2021-01-28] MEDS ORDERED: EPOETIN ALFA-EPBX (ESRD) 10,000 UNIT/ML VIAL IVP SCH (17:00)
== END 2021-01-28 18:55 | disposition home or self-care (01) ==
LOC: ERS 08:41
DX: N19 Unspecified kidney failure (principal); E11.9 Type 2 diabetes mellitus without complications; I10 Essential (primary) hypertension
CPT/HCPCS: 36415; 71045; 80048; 85025; J1644; Q5105

== ENCOUNTER 2021-02-04 09:55 | Emergency (ER) | payer MEDICAID ==
[2021-02-04 10:49] LABS: #Lymphocytes 1.2 thou/uL (1.20-3.40); #Monocytes 0.7 thou/uL (0.11-0.59); %Basophils 0.2 % (0.0-1.0); %Eosinophils 0.2 % (0.0-10.0); %Lymphocytes 17.6 % (21.0-51.0); %Monocytes 10.4 % (0.0-10.0); %Neutrophils 71.7 % (42.0-75.0); Hemoglobin 9.9 g/dL (14.0-18.0); Mean Corpuscular HGB CONC 32.3 g/dL (32.0-36.0); Mean Corpuscular Hemoglobin 32.1 pg (27.0-31.0); Mean Corpuscular Volume 99.4 fL (78.0-98.0); Mean Platelet Volume 8.2 fL (7.4-10.4); Platelet Count 156 thou/uL (130-400); RBC Distribution Width 12.4 % (11.5-14.5); White Blood Cell (WBC) Count 6.9 thou/uL (4.8-10.8)
[2021-02-04 11:14] LABS: ALT (SGPT) 16 U/L (8-55); AST (SGOT) 8 U/L (5-34); Albumin 3.8 g/dL (3.4-4.8); Alkaline Phosphatase 199 U/L (40-110); Anion Gap 17 mmol/L (10-20); BUN (Urea Nitrogen) 87 mg/dL (8.4-25.7); Bilirubin, Total 0.5 mg/dL (0.2-1.2); Calc. Creatinine Clearance 0 mL/min (70-130); Calcium 8.1 mg/dL (7.8-10.44); Carbon Dioxide 19 mmol/L (23-31); Chloride 101 mmol/L (98-107); Globulin 3.5 g/dL (2.4-3.5); Glucose 120 mg/dL (80-115); Potassium 5.3 mmol/L (3.5-5.1); Protein, Total 7.3 g/dL (5.8-8.1); Sodium 132 mmol/L (136-145)
[2021-02-04 17:05] LABS: HBSAg Index 0.16 S/CO (0-0.99); Hep B Surf Ag Non-Reactive S/CO (NonReactive)
== END 2021-02-04 16:19 | disposition home or self-care (01) ==
LOC: ERS 09:55
DX: N17.9 Acute kidney failure, unspecified (principal); N18.9 Chronic kidney disease, unspecified; Z99.2 Dependence on renal dialysis
CPT/HCPCS: 36415; 80053; 83880; 85025; 87340; 90935; 99284; G0257

== ENCOUNTER 2021-02-11 11:41 | Inpatient (IN) | payer MEDICAID ==
[~2021-02-11 11:41] MED LIST changes: +Iopamidol-370 76% 500 ML 1 ML ONE
[2021-02-11 12:35] LABS: #Basophils 0.1 thou/uL (0.0-0.2); #Lymphocytes 0.9 thou/uL (1.20-3.40); #Monocytes 0.5 thou/uL (0.11-0.59); #Neutrophils 4.8 thou/uL (1.40-6.50); %Basophils 1.4 % (0.0-1.0); %Eosinophils 0.3 % (0.0-10.0); %Lymphocytes 14.8 % (21.0-51.0); %Monocytes 7.1 % (0.0-10.0); %Neutrophils 76.5 % (42.0-75.0); Hemoglobin 10.7 g/dL (14.0-18.0); Mean Corpuscular HGB CONC 33.2 g/dL (32.0-36.0); Mean Corpuscular Hemoglobin 31.8 pg (27.0-31.0); Mean Corpuscular Volume 95.6 fL (78.0-98.0); Mean Platelet Volume 9.2 fL (7.4-10.4); Platelet Count 154 thou/uL (130-400); RBC Distribution Width 12.6 % (11.5-14.5); Red Blood Cell (RBC) Count 3.37 mill/uL (4.70-6.10); White Blood Cell (WBC) Count 6.3 thou/uL (4.8-10.8)
[2021-02-11 13:08] LABS: ALT (SGPT) 7 U/L (8-55); AST (SGOT) 8 U/L (5-34); Albumin 3.2 g/dL (3.4-4.8); Alkaline Phosphatase 134 U/L (40-110); Anion Gap 22 mmol/L (10-20); BUN (Urea Nitrogen) 113 mg/dL (8.4-25.7); Bilirubin, Total 0.5 mg/dL (0.2-1.2); Calc. Creatinine Clearance 0 mL/min (70-130); Calcium 7.4 mg/dL (7.8-10.44); Carbon Dioxide 18 mmol/L (23-31); Chloride 101 mmol/L (98-107); Globulin 3.3 g/dL (2.4-3.5); Glucose 143 mg/dL (80-115); Potassium 5.4 mmol/L (3.5-5.1); Protein, Total 6.5 g/dL (5.8-8.1); Sodium 136 mmol/L (136-145)
[2021-02-11 19:04] LABS: #Lymphocytes 0.8 thou/uL (1.20-3.40); #Monocytes 0.4 thou/uL (0.11-0.59); %Basophils 0.5 % (0.0-1.0); %Eosinophils 0.1 % (0.0-10.0); %Lymphocytes 8.5 % (21.0-51.0); %Monocytes 3.9 % (0.0-10.0); %Neutrophils 87.1 % (42.0-75.0); Hemoglobin 12.4 g/dL (14.0-18.0); Mean Corpuscular HGB CONC 32.7 g/dL (32.0-36.0); Mean Corpuscular Hemoglobin 31.8 pg (27.0-31.0); Mean Platelet Volume 9.6 fL (7.4-10.4); Platelet Count 139 thou/uL (130-400); RBC Distribution Width 12.7 % (11.5-14.5); White Blood Cell (WBC) Count 9.2 thou/uL (4.8-10.8)
[2021-02-11 19:10] LABS: Actual Bicarbonate (HCO3v) 26 mEq/L (22-28); Analyzer IN Cardio ER; Base Excess 1.6 mEq/L (-2.0 to +3.0); Calcium, Ionized (venous) 1.02 mmol/L (1.16-1.32); Chloride (VBG) 99 mmol/L (98-106); Hemoglobin (Hb) 12.2 g/dL (12.6-17.4); Potassium (VBG) 4.71 mmol/L (3.70-5.30); Sodium 138.9 mmol/L (133-146); pH (venous) 7.43 (7.32-7.43)
[2021-02-11 19:38] LABS: ALT (SGPT) 10 U/L (8-55); AST (SGOT) 12 U/L (5-34); Albumin 3.8 g/dL (3.4-4.8); Alkaline Phosphatase 161 U/L (40-110); Anion Gap 20 mmol/L (10-20); BUN (Urea Nitrogen) 33 mg/dL (8.4-25.7); Bilirubin, Total 0.8 mg/dL (0.2-1.2); Calc. Creatinine Clearance 0 mL/min (70-130); Calcium 8.6 mg/dL (7.8-10.44); Carbon Dioxide 26 mmol/L (23-31); Chloride 97 mmol/L (98-107); Globulin 4.1 g/dL (2.4-3.5); Glucose 139 mg/dL (80-115); Magnesium 1.9 mg/dL (1.6-2.6); Potassium 4.9 mmol/L (3.5-5.1); Protein, Total 7.9 g/dL (5.8-8.1); Sodium 138 mmol/L (136-145)
[2021-02-11 19:49] LABS: CKMB 2.6 ng/mL (0-6.6)
[2021-02-11 21:04] LABS: SARS-CoV-2 NAA Rapid Test DETECTED (NotDetected)
[2021-02-11] MEDS ORDERED: Vancomycin 1 GM/200 ML BAG ONE (21:41)
[2021-02-11] MEDS ORDERED: Cefepime 2 GM VIAL ONE (21:41)
[2021-02-11] MEDS ORDERED: Dexamethasone 10 MG/ML VIAL ONE (21:41)
[2021-02-11 22:19] LABS: Lactic Acid 1.8 mmol/L (0.5-2.2)
[2021-02-11 22:28] LABS: Troponin I 0.103 ng/mL (< 0.028)
[2021-02-12] MEDS ORDERED: Acetaminophen 650 MG Suppository PR PRN (00:54)
[2021-02-12] MEDS ORDERED: Ondansetron ODT 4 MG TAB PO PRN (00:54)
[2021-02-12] MEDS ORDERED: Ondansetron PF 4 MG/2 ML Vial IVP PRN (00:54)
[2021-02-12 01:59] LABS: Troponin I 0.128 ng/mL (< 0.028)
[2021-02-12] MEDS ORDERED: Dextrose 5% in Water 1,000 ML IV PRN (02:16)
[2021-02-12 06:17] LABS: #Lymphocytes 0.5 thou/uL (1.20-3.40); #Monocytes 0.2 thou/uL (0.11-0.59); #Neutrophils 4.6 thou/uL (1.40-6.50); %Eosinophils 0.1 % (0.0-10.0); %Lymphocytes 8.7 % (21.0-51.0); %Monocytes 4.5 % (0.0-10.0); %Neutrophils 86.8 % (42.0-75.0); Hemoglobin 11.4 g/dL (14.0-18.0); Mean Corpuscular HGB CONC 33.8 g/dL (32.0-36.0); Mean Corpuscular Hemoglobin 32.9 pg (27.0-31.0); Mean Corpuscular Volume 97.4 fL (78.0-98.0); Mean Platelet Volume 9.5 fL (7.4-10.4); Platelet Count 134 thou/uL (130-400); RBC Distribution Width 12.5 % (11.5-14.5); Red Blood Cell (RBC) Count 3.46 mill/uL (4.70-6.10); White Blood Cell (WBC) Count 5.4 thou/uL (4.8-10.8)
[2021-02-12 06:39] LABS: Anion Gap 18 mmol/L (10-20); BUN (Urea Nitrogen) 48 mg/dL (8.4-25.7); Calc. Creatinine Clearance 7 mL/min (70-130); Calcium 7.9 mg/dL (7.8-10.44); Carbon Dioxide 25 mmol/L (23-31); Chloride 98 mmol/L (98-107); Glucose 204 mg/dL (80-115); Potassium 4.6 mmol/L (3.5-5.1); Sodium 136 mmol/L (136-145)
[2021-02-12] MEDS: Ascorbic Acid 500 mg Chewable Tablet PO SCH (08:33)
[2021-02-12] MEDS: Zinc Sulfate 220 MG CAP PO SCH (08:34)
[2021-02-12] MEDS: Heparin 5,000 UNITS/ML VIAL SC SCH ×3 (08:34→21:41)
[2021-02-12] MEDS: Cholecalciferol (Vitamin D3) 400 UNITS TAB PO SCH (08:34)
[2021-02-12] MEDS: Pantoprazole 40 MG VIAL IVP SCH (08:35)
[2021-02-12] MEDS: Dexamethasone 10 MG/ML VIAL SLOW IVP SCH (08:35)
[2021-02-12] MEDS ORDERED: Dexamethasone 10 MG in Sodium Chloride 0.9% 50 ML IVPB SCH (09:00)
[2021-02-12] MEDS: HumaLOG 300 UNITS/3 ML VIAL SC PRN ×2 (12:31→16:46)
[2021-02-12] MEDS: Acetaminophen 325 MG TAB PO PRN (16:49)
[2021-02-13] MEDS: HumaLOG 300 UNITS/3 ML VIAL SC PRN ×2 (06:51→16:46)
[2021-02-13] MEDS: Zinc Sulfate 220 MG CAP PO SCH (09:24)
[2021-02-13] MEDS: Ascorbic Acid 500 mg Chewable Tablet PO SCH (09:24)
[2021-02-13] MEDS: Cholecalciferol (Vitamin D3) 400 UNITS TAB PO SCH (09:24)
[2021-02-13] MEDS: Dexamethasone 10 MG/ML VIAL SLOW IVP SCH (09:25)
[2021-02-13] MEDS: Heparin 5,000 UNITS/ML VIAL SC SCH ×3 (09:25→21:31)
[2021-02-13] MEDS: Pantoprazole 40 MG VIAL IVP SCH (09:25)
[2021-02-13] MEDS ORDERED: Heparin 10,000 UNITS/ 10 ML VIAL ONE (09:26)
[2021-02-13] MEDS: Acetaminophen 325 MG TAB PO PRN ×2 (13:13→22:29)
[2021-02-14 05:17] LABS: #Lymphocytes 0.6 thou/uL (1.20-3.40); #Monocytes 0.5 thou/uL (0.11-0.59); #Neutrophils 8.8 thou/uL (1.40-6.50); %Eosinophils 0.1 % (0.0-10.0); %Lymphocytes 5.9 % (21.0-51.0); %Monocytes 4.6 % (0.0-10.0); %Neutrophils 89.3 % (42.0-75.0); Hemoglobin 11.4 g/dL (14.0-18.0); Mean Corpuscular HGB CONC 32.6 g/dL (32.0-36.0); Mean Corpuscular Hemoglobin 31.6 pg (27.0-31.0); Mean Corpuscular Volume 96.9 fL (78.0-98.0); Mean Platelet Volume 9.6 fL (7.4-10.4); Platelet Count 167 thou/uL (130-400); RBC Distribution Width 12.4 % (11.5-14.5); Red Blood Cell (RBC) Count 3.59 mill/uL (4.70-6.10); White Blood Cell (WBC) Count 9.9 thou/uL (4.8-10.8)
[2021-02-14 05:48] LABS: Anion Gap 18 mmol/L (10-20); BUN (Urea Nitrogen) 44 mg/dL (8.4-25.7); Calc. Creatinine Clearance 9 mL/min (70-130); Calcium 7.8 mg/dL (7.8-10.44); Carbon Dioxide 26 mmol/L (23-31); Chloride 96 mmol/L (98-107); Glucose 184 mg/dL (80-115); Potassium 4.5 mmol/L (3.5-5.1); Sodium 135 mmol/L (136-145)
[2021-02-14] MEDS: HumaLOG 300 UNITS/3 ML VIAL SC PRN ×3 (06:05→17:46)
[2021-02-14] MEDS: Zinc Sulfate 220 MG CAP PO SCH (09:02)
[2021-02-14] MEDS: Heparin 5,000 UNITS/ML VIAL SC SCH ×3 (09:02→20:49)
[2021-02-14] MEDS: Cholecalciferol (Vitamin D3) 400 UNITS TAB PO SCH (09:02)
[2021-02-14] MEDS: Ascorbic Acid 500 mg Chewable Tablet PO SCH (09:03)
[2021-02-14] MEDS: Pantoprazole 40 MG VIAL IVP SCH (09:03)
[2021-02-14] MEDS: Dexamethasone 10 MG/ML VIAL SLOW IVP SCH (09:03)
[2021-02-15] MEDS: HumaLOG 300 UNITS/3 ML VIAL SC PRN ×2 (05:44→11:51)
[2021-02-15 06:02] LABS: #Lymphocytes 0.6 thou/uL (1.20-3.40); #Monocytes 0.4 thou/uL (0.11-0.59); #Neutrophils 11.6 thou/uL (1.40-6.50); %Eosinophils 0.1 % (0.0-10.0); %Lymphocytes 4.8 % (21.0-51.0); %Monocytes 3.1 % (0.0-10.0); %Neutrophils 91.9 % (42.0-75.0); Hemoglobin 11.6 g/dL (14.0-18.0); Mean Corpuscular HGB CONC 32.5 g/dL (32.0-36.0); Mean Corpuscular Hemoglobin 31.6 pg (27.0-31.0); Mean Platelet Volume 9.7 fL (7.4-10.4); Platelet Count 173 thou/uL (130-400); RBC Distribution Width 12.3 % (11.5-14.5); Red Blood Cell (RBC) Count 3.67 mill/uL (4.70-6.10); White Blood Cell (WBC) Count 12.6 thou/uL (4.8-10.8)
[2021-02-15 06:34] LABS: Anion Gap 23 mmol/L (10-20); BUN (Urea Nitrogen) 67 mg/dL (8.4-25.7); Calc. Creatinine Clearance 6 mL/min (70-130); Calcium 7.8 mg/dL (7.8-10.44); Carbon Dioxide 23 mmol/L (23-31); Chloride 97 mmol/L (98-107); Glucose 183 mg/dL (80-115); Potassium 4.9 mmol/L (3.5-5.1); Sodium 138 mmol/L (136-145)
[2021-02-15] MEDS: Heparin 5,000 UNITS/ML VIAL SC SCH ×3 (08:52→20:16)
[2021-02-15] MEDS: Dexamethasone 10 MG/ML VIAL SLOW IVP SCH (08:52)
[2021-02-15] MEDS: Zinc Sulfate 220 MG CAP PO SCH (08:53)
[2021-02-15] MEDS: Pantoprazole 40 MG VIAL IVP SCH (08:53)
[2021-02-15] MEDS: Ascorbic Acid 500 mg Chewable Tablet PO SCH (08:53)
[2021-02-15] MEDS: Cholecalciferol (Vitamin D3) 400 UNITS TAB PO SCH (08:53)
[2021-02-15] MEDS ORDERED: FLU VACC QS2021-22(65YR UP)/PF 240 MCG/0.7 ML SYRINGE IM ONE (09:30)
[2021-02-15] MEDS: Benzonatate 100 MG CAP PO PRN (20:41)
[2021-02-16 05:37] LABS: #Lymphocytes 0.6 thou/uL (1.20-3.40); #Monocytes 0.5 thou/uL (0.11-0.59); #Neutrophils 12.2 thou/uL (1.40-6.50); %Eosinophils 0.1 % (0.0-10.0); %Lymphocytes 4.6 % (21.0-51.0); %Monocytes 4.1 % (0.0-10.0); %Neutrophils 91.3 % (42.0-75.0); Hemoglobin 11.8 g/dL (14.0-18.0); Mean Corpuscular HGB CONC 32.3 g/dL (32.0-36.0); Mean Corpuscular Hemoglobin 31.4 pg (27.0-31.0); Mean Corpuscular Volume 97.2 fL (78.0-98.0); Mean Platelet Volume 10.2 fL (7.4-10.4); Platelet Count 160 thou/uL (130-400); RBC Distribution Width 12.5 % (11.5-14.5); Red Blood Cell (RBC) Count 3.75 mill/uL (4.70-6.10); White Blood Cell (WBC) Count 13.4 thou/uL (4.8-10.8)
[2021-02-16 05:56] LABS: Anion Gap 23 mmol/L (10-20); BUN (Urea Nitrogen) 93 mg/dL (8.4-25.7); Calc. Creatinine Clearance 6 mL/min (70-130); Calcium 8.1 mg/dL (7.8-10.44); Carbon Dioxide 22 mmol/L (23-31); Chloride 96 mmol/L (98-107); Glucose 164 mg/dL (80-115); Sodium 136 mmol/L (136-145)
[2021-02-16] MEDS: HumaLOG 300 UNITS/3 ML VIAL SC PRN ×2 (06:13→22:29)
[2021-02-16] MEDS: Ascorbic Acid 500 mg Chewable Tablet PO SCH (08:33)
[2021-02-16] MEDS: Heparin 5,000 UNITS/ML VIAL SC SCH ×3 (08:33→20:46)
[2021-02-16] MEDS: Zinc Sulfate 220 MG CAP PO SCH (08:33)
[2021-02-16] MEDS: Pantoprazole 40 MG VIAL IVP SCH (08:34)
[2021-02-16] MEDS: Cholecalciferol (Vitamin D3) 400 UNITS TAB PO SCH (08:37)
[2021-02-16] MEDS: Acetaminophen 325 MG TAB PO PRN ×2 (08:37→21:02)
[2021-02-16] MEDS: Dexamethasone 10 MG/ML VIAL SLOW IVP SCH (08:44)
[2021-02-17 05:18] LABS: #Eosinphils 0.1 thou/uL (0.0-0.7); #Lymphocytes 0.6 thou/uL (1.20-3.40); #Monocytes 0.5 thou/uL (0.11-0.59); #Neutrophils 9.7 thou/uL (1.40-6.50); %Basophils 0.1 % (0.0-1.0); %Eosinophils 1.1 % (0.0-10.0); %Lymphocytes 5.7 % (21.0-51.0); %Monocytes 4.3 % (0.0-10.0); %Neutrophils 88.7 % (42.0-75.0); Hemoglobin 11.6 g/dL (14.0-18.0); Mean Corpuscular Hemoglobin 32.1 pg (27.0-31.0); Mean Corpuscular Volume 97.5 fL (78.0-98.0); Mean Platelet Volume 9.8 fL (7.4-10.4); Platelet Count 140 thou/uL (130-400); RBC Distribution Width 12.5 % (11.5-14.5); Red Blood Cell (RBC) Count 3.61 mill/uL (4.70-6.10); White Blood Cell (WBC) Count 10.9 thou/uL (4.8-10.8)
[2021-02-17 05:38] LABS: BUN (Urea Nitrogen) 61 mg/dL (8.4-25.7); Calc. Creatinine Clearance 8 mL/min (70-130); Calcium 8.6 mg/dL (7.8-10.44); Carbon Dioxide 26 mmol/L (23-31); Glucose 131 mg/dL (80-115)
[2021-02-17 05:47] LABS: Anion Gap 19 mmol/L (10-20); Chloride 98 mmol/L (98-107); Potassium 4.5 mmol/L (3.5-5.1); Sodium 137 mmol/L (136-145)
[2021-02-17] MEDS: Heparin 5,000 UNITS/ML VIAL SC SCH ×3 (08:13→20:10)
[2021-02-17] MEDS: Dexamethasone 10 MG/ML VIAL SLOW IVP SCH (08:13)
[2021-02-17] MEDS: Cholecalciferol (Vitamin D3) 400 UNITS TAB PO SCH (08:14)
[2021-02-17] MEDS: Pantoprazole 40 MG VIAL IVP SCH (08:14)
[2021-02-17] MEDS: Ascorbic Acid 500 mg Chewable Tablet PO SCH (08:14)
[2021-02-17] MEDS: Zinc Sulfate 220 MG CAP PO SCH (08:14)
[2021-02-17] MEDS: HumaLOG 300 UNITS/3 ML VIAL SC PRN ×2 (11:38→16:49)
[2021-02-18 05:04] LABS: #Lymphocytes 0.9 thou/uL (1.20-3.40); #Monocytes 0.6 thou/uL (0.11-0.59); #Neutrophils 11.9 thou/uL (1.40-6.50); %Eosinophils 0.1 % (0.0-10.0); %Lymphocytes 6.4 % (21.0-51.0); %Monocytes 4.7 % (0.0-10.0); %Neutrophils 88.8 % (42.0-75.0); Hemoglobin 11.1 g/dL (14.0-18.0); Mean Corpuscular HGB CONC 33.5 g/dL (32.0-36.0); Mean Corpuscular Hemoglobin 32.5 pg (27.0-31.0); Mean Corpuscular Volume 97.2 fL (78.0-98.0); Mean Platelet Volume 9.9 fL (7.4-10.4); Platelet Count 167 thou/uL (130-400); RBC Distribution Width 12.5 % (11.5-14.5); White Blood Cell (WBC) Count 13.4 thou/uL (4.8-10.8)
[2021-02-18 05:41] LABS: Chloride 99 mmol/L (98-107); Potassium 4.8 mmol/L (3.5-5.1); Sodium 141 mmol/L (136-145)
[2021-02-18 05:42] LABS: Calcium 9.1 mg/dL (7.8-10.44); Glucose 120 mg/dL (80-115)
[2021-02-18 05:44] LABS: Anion Gap 22 mmol/L (10-20); Carbon Dioxide 25 mmol/L (23-31)
[2021-02-18 05:46] LABS: BUN (Urea Nitrogen) 85 mg/dL (8.4-25.7); Calc. Creatinine Clearance 5 mL/min (70-130)
[2021-02-18] MEDS: Heparin 5,000 UNITS/ML VIAL SC SCH ×3 (08:14→20:25)
[2021-02-18] MEDS: Zinc Sulfate 220 MG CAP PO SCH (08:14)
[2021-02-18] MEDS: Pantoprazole 40 MG VIAL IVP SCH (08:15)
[2021-02-18] MEDS: Cholecalciferol (Vitamin D3) 400 UNITS TAB PO SCH (08:15)
[2021-02-18] MEDS: Dexamethasone 10 MG/ML VIAL SLOW IVP SCH (08:15)
[2021-02-18] MEDS: Ascorbic Acid 500 mg Chewable Tablet PO SCH (08:30)
[2021-02-18] MEDS ORDERED: Heparin 10,000 UNITS/ 10 ML VIAL ONE (09:11)
[2021-02-18] MEDS: HumaLOG 300 UNITS/3 ML VIAL SC PRN (18:32)
[2021-02-18] MEDS: Acetaminophen 325 MG TAB PO PRN (20:26)
[2021-02-19] MEDS: Pantoprazole 40 MG VIAL IVP SCH (08:16)
[2021-02-19] MEDS: Cholecalciferol (Vitamin D3) 400 UNITS TAB PO SCH (08:17)
[2021-02-19] MEDS: Heparin 5,000 UNITS/ML VIAL SC SCH ×3 (08:17→20:47)
[2021-02-19] MEDS: Dexamethasone 10 MG/ML VIAL SLOW IVP SCH (08:17)
[2021-02-19] MEDS: Zinc Sulfate 220 MG CAP PO SCH (08:17)
[2021-02-19] MEDS: Ascorbic Acid 500 mg Chewable Tablet PO SCH (08:17)
[2021-02-19] MEDS: Acetaminophen 325 MG TAB PO PRN (08:20)
[2021-02-19] MEDS: HumaLOG 300 UNITS/3 ML VIAL SC PRN ×2 (11:05→17:15)
[2021-02-20] MEDS: HumaLOG 300 UNITS/3 ML VIAL SC PRN ×4 (05:58→22:16)
[2021-02-20] MEDS: Ascorbic Acid 500 mg Chewable Tablet PO SCH (08:19)
[2021-02-20] MEDS: Dexamethasone 10 MG/ML VIAL SLOW IVP SCH (08:19)
[2021-02-20] MEDS: Cholecalciferol (Vitamin D3) 400 UNITS TAB PO SCH (08:19)
[2021-02-20] MEDS: Pantoprazole 40 MG VIAL IVP SCH (08:19)
[2021-02-20] MEDS: Zinc Sulfate 220 MG CAP PO SCH (08:19)
[2021-02-20] MEDS: Heparin 5,000 UNITS/ML VIAL SC SCH ×3 (08:20→20:35)
[2021-02-20] MEDS ORDERED: Heparin 10,000 UNITS/ 10 ML VIAL ONE (10:51)
[2021-02-20] MEDS: Acetaminophen 325 MG TAB PO PRN (14:41)
[2021-02-21 06:06] LABS: #Lymphocytes 0.5 thou/uL (1.20-3.40); #Monocytes 0.5 thou/uL (0.11-0.59); #Neutrophils 11.2 thou/uL (1.40-6.50); %Basophils 0.1 % (0.0-1.0); %Monocytes 4.3 % (0.0-10.0); %Neutrophils 91.6 % (42.0-75.0); Hemoglobin 9.6 g/dL (14.0-18.0); Mean Corpuscular HGB CONC 31.6 g/dL (32.0-36.0); Mean Corpuscular Hemoglobin 30.7 pg (27.0-31.0); Mean Corpuscular Volume 97.2 fL (78.0-98.0); Mean Platelet Volume 9.9 fL (7.4-10.4); Platelet Count 203 thou/uL (130-400); RBC Distribution Width 12.6 % (11.5-14.5); Red Blood Cell (RBC) Count 3.14 mill/uL (4.70-6.10); White Blood Cell (WBC) Count 12.2 thou/uL (4.8-10.8)
[2021-02-21 06:58] LABS: ALT (SGPT) 8 U/L (8-55); AST (SGOT) 9 U/L (5-34); Albumin 3.1 g/dL (3.4-4.8); Alkaline Phosphatase 112 U/L (40-110); BUN (Urea Nitrogen) 54 mg/dL (8.4-25.7); Bilirubin, Total 0.5 mg/dL (0.2-1.2); Calc. Creatinine Clearance 8 mL/min (70-130); Calcium 8.8 mg/dL (7.8-10.44); Carbon Dioxide 28 mmol/L (23-31); Chloride 98 mmol/L (98-107); Globulin 3.8 g/dL (2.4-3.5); Glucose 156 mg/dL (80-115); Potassium 4.3 mmol/L (3.5-5.1); Protein, Total 6.9 g/dL (5.8-8.1); Sodium 139 mmol/L (136-145)
[2021-02-21 07:39] LABS: Anion Gap 17 mmol/L (10-20)
[2021-02-21] MEDS: Heparin 5,000 UNITS/ML VIAL SC SCH ×3 (08:42→20:12)
[2021-02-21] MEDS: Cholecalciferol (Vitamin D3) 400 UNITS TAB PO SCH (08:45)
[2021-02-21] MEDS: Dexamethasone 10 MG/ML VIAL SLOW IVP SCH (08:45)
[2021-02-21] MEDS: Ascorbic Acid 500 mg Chewable Tablet PO SCH (08:45)
[2021-02-21] MEDS: Zinc Sulfate 220 MG CAP PO SCH (08:45)
[2021-02-21] MEDS: Pantoprazole 40 MG VIAL IVP SCH (08:46)
[2021-02-21] MEDS ORDERED: guaiFENesin/Codeine 200 mg/20 mg 10 ml Cup PO SCH (10:15)
[2021-02-21] MEDS: HumaLOG 300 UNITS/3 ML VIAL SC PRN ×2 (11:19→15:49)
[2021-02-21] MEDS: Benzonatate 100 MG CAP PO PRN (14:42)
[2021-02-22] MEDS: HumaLOG 300 UNITS/3 ML VIAL SC PRN ×3 (06:29→17:10)
[2021-02-22] MEDS: guaiFENesin/Codeine 200 mg/20 mg 10 ml Cup PO PRN (08:45)
[2021-02-22] MEDS: Ascorbic Acid 500 mg Chewable Tablet PO SCH (08:45)
[2021-02-22] MEDS: Heparin 5,000 UNITS/ML VIAL SC SCH ×3 (08:46→20:37)
[2021-02-22] MEDS: Pantoprazole 40 MG VIAL IVP SCH (08:46)
[2021-02-22] MEDS: Zinc Sulfate 220 MG CAP PO SCH (08:46)
[2021-02-22] MEDS: Cholecalciferol (Vitamin D3) 400 UNITS TAB PO SCH (08:46)
[2021-02-22] MEDS: Dexamethasone 10 MG/ML VIAL SLOW IVP SCH (08:46)
[2021-02-22] MEDS: Calcium Acetate 667 MG CAP PO SCH ×2 (11:35→17:13)
[2021-02-22] MEDS ORDERED: Polyethylene Glycol 3350 17 GM Packet PO PRN (12:15)
[2021-02-22] MEDS: Senokot S 8.6-50 MG TAB PO SCH (20:37)
[2021-02-22] MEDS ORDERED: hydrALAZINE 20 MG/ML VIAL SLOW IVP PRN (23:57)
[2021-02-23 05:57] LABS: Hemoglobin 10.7 g/dL (14.0-18.0); Mean Corpuscular HGB CONC 31.9 g/dL (32.0-36.0); Mean Corpuscular Hemoglobin 31.1 pg (27.0-31.0); Mean Corpuscular Volume 97.6 fL (78.0-98.0); Mean Platelet Volume 9.7 fL (7.4-10.4); Platelet Count 203 thou/uL (130-400); RBC Distribution Width 12.6 % (11.5-14.5); Red Blood Cell (RBC) Count 3.45 mill/uL (4.70-6.10); White Blood Cell (WBC) Count 23.1 thou/uL (4.8-10.8)
[2021-02-23 06:10] LABS: Phosphorus 7.1 mg/dL (2.3-4.7)
[2021-02-23 06:20] LABS: Iron 25 ug/dL (65-175); Iron Binding Capacity, Total 216 mcg/dL (261-462)
[2021-02-23] MEDS: HumaLOG 300 UNITS/3 ML VIAL SC PRN ×2 (06:23→16:43)
[2021-02-23 06:55] LABS: ALT (SGPT) 7 U/L (8-55); AST (SGOT) 8 U/L (5-34); Albumin 3.1 g/dL (3.4-4.8); Alkaline Phosphatase 139 U/L (40-110); Anion Gap 26 mmol/L (10-20); BUN (Urea Nitrogen) 101 mg/dL (8.4-25.7); Bilirubin, Total 0.5 mg/dL (0.2-1.2); Calc. Creatinine Clearance 6 mL/min (70-130); Calcium 9.2 mg/dL (7.8-10.44); Carbon Dioxide 25 mmol/L (23-31); Chloride 94 mmol/L (98-107); Globulin 4.3 g/dL (2.4-3.5); Glucose 167 mg/dL (80-115); Potassium 5.8 mmol/L (3.5-5.1); Protein, Total 7.4 g/dL (5.8-8.1); Sodium 139 mmol/L (136-145)
[2021-02-23] MEDS: Calcium Acetate 667 MG CAP PO SCH ×3 (08:08→16:42)
[2021-02-23] MEDS: Cholecalciferol (Vitamin D3) 400 UNITS TAB PO SCH (08:08)
[2021-02-23] MEDS: Heparin 5,000 UNITS/ML VIAL SC SCH ×3 (08:08→20:31)
[2021-02-23] MEDS: Senokot S 8.6-50 MG TAB PO SCH ×2 (08:08→20:53)
[2021-02-23] MEDS: Ascorbic Acid 500 mg Chewable Tablet PO SCH (08:08)
[2021-02-23] MEDS: guaiFENesin/Codeine 200 mg/20 mg 10 ml Cup PO PRN (08:08)
[2021-02-23] MEDS: Dexamethasone 10 MG/ML VIAL SLOW IVP SCH (08:09)
[2021-02-23] MEDS: Zinc Sulfate 220 MG CAP PO SCH (08:25)
[2021-02-23] MEDS: Pantoprazole 40 MG VIAL IVP SCH (08:25)
[2021-02-23] MEDS ORDERED: Epoetin (ESRD) 20,000 UNITS/ML IVP SCH (10:16)
[2021-02-23] MEDS ORDERED: Heparin 10,000 UNITS/ 10 ML VIAL ONE ×2 (10:27→12:46)
[2021-02-23 12:54] LABS: Anion Gap 20 mmol/L (10-20); BUN (Urea Nitrogen) 26 mg/dL (8.4-25.7); Calc. Creatinine Clearance 17 mL/min (70-130); Calcium 9.1 mg/dL (7.8-10.44); Carbon Dioxide 25 mmol/L (23-31); Chloride 99 mmol/L (98-107); Glucose 150 mg/dL (80-115); Potassium 3.8 mmol/L (3.5-5.1); Sodium 140 mmol/L (136-145)
[2021-02-23] MEDS: EPOETIN ALFA-EPBX (ESRD) 10,000 UNIT/ML VIAL IVP SCH (16:54)
[2021-02-23] MEDS ORDERED: Sodium Bicarb 50 MEQ/50 ML Abboject 8.4% SYRINGE ONE (18:30)
[2021-02-23] MEDS ORDERED: Succinylcholine 200 MG/10 ml SYRINGE FS ONE (18:30)
[2021-02-23] MEDS ORDERED: EPINEPHrine 1 MG/10 ML Abboject SYRINGE ONE (18:30)
[2021-02-23] MEDS ORDERED: Atropine Sulfate 1 mg/10 ml Syringe ONE (18:30)
[2021-02-23] MEDS ORDERED: Ventilator Sedation Protocol 1 EACH FS ONE (18:44)
[2021-02-23] MEDS ORDERED: Propofol 1,000 MG/100 ML VIAL IV ONE (18:48)
[2021-02-23] MEDS ORDERED: Rocuronium Bromide 50 MG/5 ML VIAL ONE (18:58)
[2021-02-23 19:16] LABS: Actual Bicarbonate (HCO3a) 23.9 mEq/L (22-28); Base Excess (BEa) -3.6 mEq/L (-2.0 to +3.0); CO2 Tension 55.6 mmHg (35.0-45.0); Calcium, Ionized (arterial) 1.08 mmol/L (1.12-1.30); Carboxyhemoglobin (COHb) 0.3 gm% (0.0-3.0); Potassium - ABG Lab 3.91 mmol/L (3.70-5.30)
[2021-02-23] MEDS ORDERED: Morphine 2 MG/ML VIAL SLOW IVP PRN (19:30)
[2021-02-23] MEDS ORDERED: Fentanyl BOLUS 250 ML IVPB PRN (19:30)
[2021-02-23] MEDS ORDERED: Propofol BOLUS 1,000 MG/100 ML VIAL IV PRN (19:30)
[2021-02-23] MEDS ORDERED: DISCONTINUE PREVIOUS NARCOTIC PAIN MEDICATIONS AND BENZODIAZEPINES FS SCH (19:30)
[2021-02-23] MEDS: Lorazepam 2 MG/ML VIAL SLOW IVP PRN (20:18)
[2021-02-23] MEDS ORDERED: Fentanyl CADD 100 ML ONE (20:37)
[2021-02-23] MEDS: Fentanyl CADD 100 ML IV SCH (20:38)
[2021-02-23] MEDS: Norepinephrine 8 MG/0.9% NS 250 ML IVPB SCH (20:49)
[2021-02-23 21:54] LABS: Hemoglobin 9.8 g/dL (14.0-18.0); Mean Corpuscular HGB CONC 32.5 g/dL (32.0-36.0); Mean Corpuscular Hemoglobin 32.2 pg (27.0-31.0); Mean Corpuscular Volume 99.1 fL (78.0-98.0); RBC Distribution Width 12.9 % (11.5-14.5); Red Blood Cell (RBC) Count 3.04 mill/uL (4.70-6.10); White Blood Cell (WBC) Count 25.6 thou/uL (4.8-10.8)
[2021-02-23 22:02] LABS: Anion Gap 32 mmol/L (10-20); BUN (Urea Nitrogen) 46 mg/dL (8.4-25.7); Calc. Creatinine Clearance 10 mL/min (70-130); Calcium 9.1 mg/dL (7.8-10.44); Carbon Dioxide 21 mmol/L (23-31); Chloride 98 mmol/L (98-107); Glucose 193 mg/dL (80-115); Potassium 4.9 mmol/L (3.5-5.1); Sodium 146 mmol/L (136-145)
[2021-02-23 22:12] LABS: Mean Platelet Volume 10.3 fL (7.4-10.4); Platelet Count 131 thou/uL (130-400)
[2021-02-23 22:13] LABS: Band 13 % (5-11); MDiff Complete? YES; Monocytes 1 % (0-10); Myelocyte 1 % (0-0); Neutrophil 85 % (42-75); Platelet Morphology Comment Appears Adequate
[2021-02-24 04:48] LABS: Anion Gap 22 mmol/L (10-20); BUN (Urea Nitrogen) 58 mg/dL (8.4-25.7); Calc. Creatinine Clearance 9 mL/min (70-130); Calcium 8.4 mg/dL (7.8-10.44); Carbon Dioxide 29 mmol/L (23-31); Chloride 99 mmol/L (98-107); Glucose 167 mg/dL (80-115); Phosphorus 4.8 mg/dL (2.3-4.7); Potassium 5.4 mmol/L (3.5-5.1); Sodium 145 mmol/L (136-145)
[2021-02-24 04:58] LABS: Hemoglobin 9.3 g/dL (14.0-18.0); Mean Corpuscular HGB CONC 33.5 g/dL (32.0-36.0); Mean Corpuscular Hemoglobin 32.3 pg (27.0-31.0); Mean Corpuscular Volume 96.5 fL (78.0-98.0); Mean Platelet Volume 10.8 fL (7.4-10.4); Platelet Count 127 thou/uL (130-400); Red Blood Cell (RBC) Count 2.89 mill/uL (4.70-6.10); White Blood Cell (WBC) Count 14.4 thou/uL (4.8-10.8)
[2021-02-24 05:41] LABS: Band 15 % (5-11); Lymphocytes 3 % (21-51); MDiff Complete? YES; Monocytes 1 % (0-10); Neutrophil 81 % (42-75)
[2021-02-24] MEDS: Pantoprazole 40 MG VIAL IVP SCH (08:31)
[2021-02-24] MEDS: Calcium Acetate 667 MG CAP PO SCH ×4 (08:31→16:57)
[2021-02-24] MEDS: Cholecalciferol (Vitamin D3) 400 UNITS TAB PO SCH (08:31)
[2021-02-24] MEDS: Zinc Sulfate 220 MG CAP PO SCH (08:31)
[2021-02-24] MEDS: Calcitriol 0.25 MCG CAP PO SCH (08:31)
[2021-02-24] MEDS: Ascorbic Acid 500 mg Chewable Tablet PO SCH (08:31)
[2021-02-24] MEDS: Heparin 5,000 UNITS/ML VIAL SC SCH ×3 (08:32→20:28)
[2021-02-24] MEDS: Senokot S 8.6-50 MG TAB PO SCH ×2 (08:36→20:29)
[2021-02-24] MEDS: Dexamethasone 10 MG/ML VIAL SLOW IVP SCH (08:36)
[2021-02-24] MEDS ORDERED: Piperacillin/Tazobactam 3.375 GM in Sodium Chloride 0.9% 100 ML IVPB SCH (09:30)
[2021-02-24] MEDS: Norepinephrine 8 MG/0.9% NS 250 ML IVPB SCH ×2 (09:49→23:56)
[2021-02-24] MEDS ORDERED: VANCOMYCIN 1.25 GM/250 ML BAG 1.25 GM in Premix Bag 1 BAG IVPB SCH (10:00)
[2021-02-24] MEDS: HumaLOG 300 UNITS/3 ML VIAL SC PRN ×2 (10:46→16:19)
[2021-02-24] MEDS: Piperacillin/Tazobactam 3.375 GM in Sodium Chloride 0.9% 100 ML IVPB SCH ×4 (10:47→22:29)
[2021-02-24] MEDS: Lorazepam 2 MG/ML VIAL SLOW IVP PRN ×2 (13:31→15:46)
[2021-02-24] MEDS ORDERED: HOLD VANCOMYCIN FOR LEVEL >20 FS SCH (15:15)
[2021-02-24] MEDS ORDERED: Vancomycin HCl 500 MG in Sodium Chloride 0.9% 100 ML IVPB SCH (15:15)
[2021-02-24] MEDS ORDERED: Vancomycin 1 GM in Premix Bag 1 BAG IVPB SCH ×2 (15:15→21:00)
[2021-02-24] MEDS ORDERED: Vancomycin HCl 750 MG in Sodium Chloride 0.9% 250 ML 250 ML IVPB SCH (15:15)
[2021-02-24] MEDS ORDERED: Vancomycin HCl 250 MG in Sodium Chloride 0.9% 100 ML IVPB SCH (15:15)
[2021-02-24 21:06] LABS: Puncture Site RRA; pH, Arterial 7.25 (7.35-7.45)
[2021-02-25 04:19] LABS: Hemoglobin 9.2 g/dL (14.0-18.0); Mean Corpuscular HGB CONC 32.6 g/dL (32.0-36.0); Mean Corpuscular Hemoglobin 32.1 pg (27.0-31.0); Mean Corpuscular Volume 98.3 fL (78.0-98.0); RBC Distribution Width 13.1 % (11.5-14.5); Red Blood Cell (RBC) Count 2.87 mill/uL (4.70-6.10); White Blood Cell (WBC) Count 17.8 thou/uL (4.8-10.8)
[2021-02-25 04:37] LABS: ALT (SGPT) 16 U/L (8-55); AST (SGOT) 28 U/L (5-34); Albumin 2.5 g/dL (3.4-4.8); Alkaline Phosphatase 111 U/L (40-110); Anion Gap 28 mmol/L (10-20); BUN (Urea Nitrogen) 90 mg/dL (8.4-25.7); Bilirubin, Total 0.7 mg/dL (0.2-1.2); Calc. Creatinine Clearance 6 mL/min (70-130); Carbon Dioxide 22 mmol/L (23-31); Chloride 102 mmol/L (98-107); Globulin 3.8 g/dL (2.4-3.5); Glucose 196 mg/dL (80-115); Protein, Total 6.3 g/dL (5.8-8.1); Sodium 146 mmol/L (136-145)
[2021-02-25 05:01] LABS: Band 22 % (5-11); Large Platelets SLIGHT; Lymphocytes 5 % (21-51); MDiff Complete? YES; Mean Platelet Volume 11.5 fL (7.4-10.4); Monocytes 3 % (0-10); Neutrophil 69 % (42-75); Platelet Count 97 thou/uL (130-400); Platelet Morphology Comment Appears Decreased; Reactive Lymphocytes 1 % (0-10)
[2021-02-25] MEDS: HumaLOG 300 UNITS/3 ML VIAL SC PRN ×3 (05:10→22:57)
[2021-02-25] MEDS ORDERED: Fentanyl CADD 100 ML ONE (07:51)
[2021-02-25] MEDS: Pantoprazole 40 MG VIAL IVP SCH (08:00)
[2021-02-25] MEDS: Cholecalciferol (Vitamin D3) 400 UNITS TAB PO SCH (08:00)
[2021-02-25] MEDS: Calcium Acetate 667 MG CAP PO SCH ×3 (08:00→16:04)
[2021-02-25] MEDS: Heparin 5,000 UNITS/ML VIAL SC SCH ×3 (08:00→20:16)
[2021-02-25] MEDS: Fentanyl CADD 100 ML IV SCH (08:00)
[2021-02-25] MEDS: Calcitriol 0.25 MCG CAP PO SCH (08:00)
[2021-02-25] MEDS: Senokot S 8.6-50 MG TAB PO SCH ×2 (08:00→20:16)
[2021-02-25] MEDS: Zinc Sulfate 220 MG CAP PO SCH (08:01)
[2021-02-25] MEDS: Ascorbic Acid 500 mg Chewable Tablet PO SCH (08:24)
[2021-02-25 09:36] LABS: Vancomycin, Random 21.6 ug/mL (See Comment)
[2021-02-25] MEDS: Dexamethasone 10 MG/ML VIAL SLOW IVP SCH (09:58)
[2021-02-25] MEDS: Piperacillin/Tazobactam 3.375 GM in Sodium Chloride 0.9% 100 ML IVPB SCH ×2 (11:52→22:57)
[2021-02-25] MEDS: EPOETIN ALFA-EPBX (ESRD) 10,000 UNIT/ML VIAL IVP SCH (13:00)
[2021-02-25] MEDS ORDERED: Heparin 10,000 UNITS/ 10 ML VIAL ONE (14:16)
[2021-02-25] MEDS: Propofol 1,000 MG/100 ML VIAL IV PRN (14:53)
[2021-02-25] MEDS: Lorazepam 2 MG/ML VIAL SLOW IVP PRN (14:53)
[2021-02-25] MEDS: Norepinephrine 8 MG/0.9% NS 250 ML IVPB SCH (14:53)
[2021-02-26] MEDS: Propofol 1,000 MG/100 ML VIAL IV PRN ×2 (04:06→11:52)
[2021-02-26 04:25] LABS: ALT (SGPT) 28 U/L (8-55); AST (SGOT) 34 U/L (5-34); Albumin 2.2 g/dL (3.4-4.8); Alkaline Phosphatase 104 U/L (40-110); Anion Gap 22 mmol/L (10-20); BUN (Urea Nitrogen) 62 mg/dL (8.4-25.7); Bilirubin, Total 0.7 mg/dL (0.2-1.2); Calc. Creatinine Clearance 10 mL/min (70-130); Calcium 7.9 mg/dL (7.8-10.44); Carbon Dioxide 22 mmol/L (23-31); Chloride 99 mmol/L (98-107); Globulin 3.6 g/dL (2.4-3.5); Glucose 177 mg/dL (80-115); Potassium 4.8 mmol/L (3.5-5.1); Protein, Total 5.8 g/dL (5.8-8.1); Sodium 138 mmol/L (136-145)
[2021-02-26] MEDS: HumaLOG 300 UNITS/3 ML VIAL SC PRN ×4 (04:32→23:18)
[2021-02-26 04:45] LABS: Band 14 % (5-11); Hemoglobin 8.8 g/dL (14.0-18.0); Lymphocytes 4 % (21-51); MDiff Complete? YES; Macrocytosis SLIGHT = 6-15 cells (100X) (0-5/hpf); Mean Corpuscular HGB CONC 31.7 g/dL (32.0-36.0); Mean Corpuscular Hemoglobin 31.6 pg (27.0-31.0); Mean Corpuscular Volume 99.8 fL (78.0-98.0); Mean Platelet Volume 12.3 fL (7.4-10.4); Monocytes 4 % (0-10); Neutrophil 76 % (42-75); Platelet Count 81 thou/uL (130-400); Platelet Morphology Comment Appears Adequate; Polychromasia SLIGHT = 2-3 cells (100X) (0-2/hpf); RBC Distribution Width 13.2 % (11.5-14.5); Reactive Lymphocytes 2 % (0-10); White Blood Cell (WBC) Count 13.1 thou/uL (4.8-10.8)
[2021-02-26] MEDS ORDERED: Fentanyl CADD 100 ML ONE (06:44)
[2021-02-26] MEDS: Fentanyl CADD 100 ML IV SCH (06:47)
[2021-02-26 08:24] LABS: Base Excess (BEa) 0.6 mEq/L (-2.0 to +3.0); CO2 Tension 39.3 mmHg (35.0-45.0); pH, Arterial 7.42 (7.35-7.45)
[2021-02-26 08:25] LABS: Calcium, Ionized (arterial) 1.06 mmol/L (1.12-1.30); Carboxyhemoglobin (COHb) 1.3 gm% (0.0-3.0); Potassium - ABG Lab 4.75 mmol/L (3.70-5.30)
[2021-02-26 08:29] LABS: O2 Tension (PaO2), arterial 43.5 mmHg (> 80.0); Puncture Site LRA
[2021-02-26 08:30] LABS: ALV-art Gradient 235.355 mmHg (0-20)
[2021-02-26] MEDS: Cholecalciferol (Vitamin D3) 400 UNITS TAB PO SCH (08:35)
[2021-02-26] MEDS: Heparin 5,000 UNITS/ML VIAL SC SCH ×3 (08:35→20:16)
[2021-02-26] MEDS: Zinc Sulfate 220 MG CAP PO SCH (08:36)
[2021-02-26] MEDS: Ascorbic Acid 500 mg Chewable Tablet PO SCH (08:36)
[2021-02-26] MEDS: Senokot S 8.6-50 MG TAB PO SCH ×2 (08:36→20:16)
[2021-02-26] MEDS: Pantoprazole 40 MG VIAL IVP SCH (08:37)
[2021-02-26] MEDS: Calcitriol 0.25 MCG CAP PO SCH (08:37)
[2021-02-26] MEDS: Dexamethasone 10 MG/ML VIAL SLOW IVP SCH (08:37)
[2021-02-26] MEDS: Calcium Acetate 667 MG CAP PO SCH ×3 (08:38→16:49)
[2021-02-26] MEDS: Norepinephrine 8 MG/0.9% NS 250 ML IVPB SCH (08:41)
[2021-02-26] MEDS: Piperacillin/Tazobactam 3.375 GM in Sodium Chloride 0.9% 100 ML IVPB SCH ×2 (11:50→23:06)
[2021-02-26] MEDS: Lorazepam 2 MG/ML VIAL SLOW IVP PRN (16:49)
[2021-02-26] MEDS: Morphine 4 MG/ML VIAL SLOW IVP PRN (16:50)
[2021-02-27] MEDS: Propofol 1,000 MG/100 ML VIAL IV PRN (02:00)
[2021-02-27] MEDS: HumaLOG 300 UNITS/3 ML VIAL SC PRN ×3 (04:30→17:08)
[2021-02-27 07:56] LABS: Actual Bicarbonate (HCO3a) 23.4 mEq/L (22-28); Base Excess (BEa) -1.9 mEq/L (-2.0 to +3.0); CO2 Tension 42.1 mmHg (35.0-45.0); Calcium, Ionized (arterial) 1.15 mmol/L (1.12-1.30); Carboxyhemoglobin (COHb) 0.9 gm% (0.0-3.0); Hemoglobin (Hb) 9.1 g/dL (14.0-18.0); Potassium - ABG Lab 5.24 mmol/L (3.70-5.30); pH, Arterial 7.36 (7.35-7.45)
[2021-02-27 08:01] LABS: O2 Tension (PaO2), arterial 59.6 mmHg (> 80.0)
[2021-02-27 08:02] LABS: ALV-art Gradient 137.325 mmHg (0-20); Puncture Site RBA
[2021-02-27] MEDS: Pantoprazole 40 MG VIAL IVP SCH (08:14)
[2021-02-27] MEDS: Calcitriol 0.25 MCG CAP PO SCH (08:18)
[2021-02-27] MEDS: Zinc Sulfate 220 MG CAP PO SCH (08:18)
[2021-02-27] MEDS: Ascorbic Acid 500 mg Chewable Tablet PO SCH (08:18)
[2021-02-27] MEDS: Calcium Acetate 667 MG CAP PO SCH ×3 (08:18→17:04)
[2021-02-27] MEDS: Cholecalciferol (Vitamin D3) 400 UNITS TAB PO SCH (08:18)
[2021-02-27] MEDS: Senokot S 8.6-50 MG TAB PO SCH ×2 (08:18→20:01)
[2021-02-27] MEDS: Heparin 5,000 UNITS/ML VIAL SC SCH ×3 (08:19→20:00)
[2021-02-27] MEDS: Dexamethasone 10 MG/ML VIAL SLOW IVP SCH (08:25)
[2021-02-27 10:41] LABS: Vancomycin, Random 12.1 ug/mL (See Comment)
[2021-02-27] MEDS: Piperacillin/Tazobactam 3.375 GM in Sodium Chloride 0.9% 100 ML IVPB SCH ×2 (12:22→23:56)
[2021-02-27] MEDS: Norepinephrine 8 MG/0.9% NS 250 ML IVPB SCH (13:22)
[2021-02-27] MEDS: EPOETIN ALFA-EPBX (ESRD) 10,000 UNIT/ML VIAL IVP SCH (13:23)
[2021-02-27] MEDS: Lorazepam 2 MG/ML VIAL SLOW IVP PRN (20:00)
[2021-02-28] MEDS: HumaLOG 300 UNITS/3 ML VIAL SC PRN ×5 (00:10→22:03)
[2021-02-28] MEDS: Heparin 5,000 UNITS/ML VIAL SC SCH ×3 (08:40→20:31)
[2021-02-28] MEDS: Cholecalciferol (Vitamin D3) 400 UNITS TAB PO SCH (08:41)
[2021-02-28] MEDS: Senokot S 8.6-50 MG TAB PO SCH ×2 (08:41→20:32)
[2021-02-28] MEDS: Calcitriol 0.25 MCG CAP PO SCH (08:41)
[2021-02-28] MEDS: Pantoprazole 40 MG VIAL IVP SCH (08:41)
[2021-02-28] MEDS: Zinc Sulfate 220 MG CAP PO SCH (08:41)
[2021-02-28] MEDS: Ascorbic Acid 500 mg Chewable Tablet PO SCH (08:41)
[2021-02-28] MEDS: Calcium Acetate 667 MG CAP PO SCH ×3 (08:41→17:02)
[2021-02-28] MEDS: Dexamethasone 10 MG/ML VIAL SLOW IVP SCH (08:41)
[2021-02-28 08:58] LABS: Actual Bicarbonate (HCO3a) 25.7 mEq/L (22-28); Base Excess (BEa) 1.3 mEq/L (-2.0 to +3.0); CO2 Tension 40.1 mmHg (35.0-45.0); Calcium, Ionized (arterial) 1.13 mmol/L (1.12-1.30); Hemoglobin (Hb) 9.6 g/dL (14.0-18.0); pH, Arterial 7.43 (7.35-7.45)
[2021-02-28 09:00] LABS: ALV-art Gradient 191.475 mmHg (0-20); O2 Tension (PaO2), arterial 43.6 mmHg (> 80.0); Puncture Site RBA
[2021-02-28] MEDS: Lorazepam 2 MG/ML VIAL SLOW IVP PRN ×3 (09:40→13:25)
[2021-02-28] MEDS: Piperacillin/Tazobactam 3.375 GM in Sodium Chloride 0.9% 100 ML IVPB SCH ×2 (09:57→22:26)
[2021-02-28] MEDS: Norepinephrine 8 MG/0.9% NS 250 ML IVPB SCH (13:25)
[2021-02-28] MEDS: Propofol 1,000 MG/100 ML VIAL IV PRN (13:26)
[2021-02-28] MEDS ORDERED: Sodium Chloride 0.9% 500 ML IV SCH (18:30)
[2021-03-01] MEDS: Lorazepam 2 MG/ML VIAL SLOW IVP PRN ×2 (02:46→10:51)
[2021-03-01] MEDS: Norepinephrine 8 MG/0.9% NS 250 ML IVPB SCH (03:42)
[2021-03-01] MEDS: HumaLOG 300 UNITS/3 ML VIAL SC PRN ×4 (03:53→21:55)
[2021-03-01 04:35] LABS: Hemoglobin 8.3 g/dL (14.0-18.0); Mean Corpuscular HGB CONC 33.4 g/dL (32.0-36.0); Mean Corpuscular Hemoglobin 32.1 pg (27.0-31.0); Mean Corpuscular Volume 96.1 fL (78.0-98.0); Mean Platelet Volume 12.9 fL (7.4-10.4); Platelet Count 87 thou/uL (130-400); RBC Distribution Width 13.2 % (11.5-14.5); Red Blood Cell (RBC) Count 2.59 mill/uL (4.70-6.10)
[2021-03-01 04:36] LABS: Band 6 % (5-11); Hypochromia SLIGHT = 6-15 cells (100X) (0-5/hpf); Lymphocytes 9 % (21-51); MDiff Complete? YES; Monocytes 3 % (0-10); Neutrophil 82 % (42-75); Nucleated RBC 1 % (0); Platelet Morphology Comment Appears Decreased
[2021-03-01 06:06] LABS: Anion Gap 24 mmol/L (10-20); BUN (Urea Nitrogen) 89 mg/dL (8.4-25.7); Calc. Creatinine Clearance 8 mL/min (70-130); Calcium 8.6 mg/dL (7.8-10.44); Carbon Dioxide 22 mmol/L (23-31); Chloride 100 mmol/L (98-107); Glucose 236 mg/dL (80-115); Potassium 5.1 mmol/L (3.5-5.1); Sodium 141 mmol/L (136-145)
[2021-03-01 08:15] LABS: Actual Bicarbonate (HCO3a) 22.4 mEq/L (22-28); CO2 Tension 31.8 mmHg (35.0-45.0); Calcium, Ionized (arterial) 1.12 mmol/L (1.12-1.30); Carboxyhemoglobin (COHb) 0.5 gm% (0.0-3.0); Hemoglobin (Hb) 8.2 g/dL (14.0-18.0); O2 Tension (PaO2), arterial 94.9 mmHg (> 80.0); Potassium - ABG Lab 4.49 mmol/L (3.70-5.30); pH, Arterial 7.47 (7.35-7.45)
[2021-03-01 08:18] LABS: Puncture Site RBA
[2021-03-01] MEDS: Calcium Acetate 667 MG CAP PO SCH ×3 (08:50→16:36)
[2021-03-01] MEDS: Cholecalciferol (Vitamin D3) 400 UNITS TAB PO SCH (08:50)
[2021-03-01] MEDS: Calcitriol 0.25 MCG CAP PO SCH (08:50)
[2021-03-01] MEDS: Ascorbic Acid 500 mg Chewable Tablet PO SCH (08:50)
[2021-03-01] MEDS: Senokot S 8.6-50 MG TAB PO SCH ×2 (08:50→21:38)
[2021-03-01] MEDS: Zinc Sulfate 220 MG CAP PO SCH (08:50)
[2021-03-01] MEDS: Dexamethasone 10 MG/ML VIAL SLOW IVP SCH (08:50)
[2021-03-01] MEDS: Heparin 5,000 UNITS/ML VIAL SC SCH ×3 (08:51→21:38)
[2021-03-01] MEDS: Pantoprazole 40 MG VIAL IVP SCH (08:51)
[2021-03-01] MEDS: Piperacillin/Tazobactam 3.375 GM in Sodium Chloride 0.9% 100 ML IVPB SCH ×2 (10:51→23:22)
[2021-03-01] MEDS: Metoclopramide HCl 10 MG/2 ML VIAL IVP PRN (10:52)
[2021-03-02] MEDS: Norepinephrine 8 MG/0.9% NS 250 ML IVPB SCH ×2 (02:18→21:20)
[2021-03-02] MEDS: HumaLOG 300 UNITS/3 ML VIAL SC PRN ×3 (03:45→23:29)
[2021-03-02 04:33] LABS: Anion Gap 26 mmol/L (10-20); Calc. Creatinine Clearance 6 mL/min (70-130); Calcium 8.7 mg/dL (7.8-10.44); Carbon Dioxide 20 mmol/L (23-31); Chloride 98 mmol/L (98-107); Glucose 319 mg/dL (80-115); Sodium 139 mmol/L (136-145)
[2021-03-02 04:44] LABS: BUN (Urea Nitrogen) 112 mg/dL (8.4-25.7)
[2021-03-02 04:55] LABS: Band 7 % (5-11); Hemoglobin 7.2 g/dL (14.0-18.0); Lymphocytes 3 % (21-51); MDiff Complete? YES; Mean Corpuscular Hemoglobin 32.8 pg (27.0-31.0); Mean Corpuscular Volume 96.5 fL (78.0-98.0); Monocytes 7 % (0-10); Neutrophil 83 % (42-75); Platelet Count 101 thou/uL (130-400); Platelet Morphology Comment Appears Decreased; Polychromasia MODERATE = 3-4 cells (100X) (0-2/hpf); RBC Distribution Width 13.3 % (11.5-14.5); Red Blood Cell (RBC) Count 2.18 mill/uL (4.70-6.10); White Blood Cell (WBC) Count 13.3 thou/uL (4.8-10.8)
[2021-03-02 07:40] LABS: Base Excess (BEa) -4.2 mEq/L (-2.0 to +3.0); CO2 Tension 32.9 mmHg (35.0-45.0); Calcium, Ionized (arterial) 1.19 mmol/L (1.12-1.30); Carboxyhemoglobin (COHb) 1.3 gm% (0.0-3.0); Hemoglobin (Hb) 8.5 g/dL (14.0-18.0); Potassium - ABG Lab 4.62 mmol/L (3.70-5.30)
[2021-03-02 07:44] LABS: ALV-art Gradient 252.375 mmHg (0-20); Puncture Site LRA
[2021-03-02] MEDS ORDERED: Heparin 10,000 UNITS/ 10 ML VIAL ONE (09:08)
[2021-03-02] MEDS ORDERED: NPH, Human Insulin Isophane 300 UNIT/3 ML VIAL SC SCH (09:15)
[2021-03-02] MEDS ORDERED: Torsemide 20 MG TAB PO SCH (11:30)
[2021-03-02] MEDS: Calcium Acetate 667 MG CAP PO SCH ×3 (12:25→17:15)
[2021-03-02] MEDS: Zinc Sulfate 220 MG CAP PO SCH (12:25)
[2021-03-02] MEDS: Cholecalciferol (Vitamin D3) 400 UNITS TAB PO SCH (12:25)
[2021-03-02] MEDS: Heparin 5,000 UNITS/ML VIAL SC SCH ×3 (12:26→21:31)
[2021-03-02] MEDS: Calcitriol 0.25 MCG CAP PO SCH (12:26)
[2021-03-02] MEDS: Pantoprazole 40 MG VIAL IVP SCH (12:26)
[2021-03-02] MEDS: Ascorbic Acid 500 mg Chewable Tablet PO SCH (12:26)
[2021-03-02] MEDS: Dexamethasone 10 MG/ML VIAL SLOW IVP SCH (12:26)
[2021-03-02] MEDS: Senokot S 8.6-50 MG TAB PO SCH ×2 (12:27→21:26)
[2021-03-02] MEDS: Piperacillin/Tazobactam 3.375 GM in Sodium Chloride 0.9% 100 ML IVPB SCH ×2 (12:28→23:25)
[2021-03-02] MEDS: Lorazepam 2 MG/ML VIAL SLOW IVP PRN (13:30)
[2021-03-02] MEDS: EPOETIN ALFA-EPBX (ESRD) 10,000 UNIT/ML VIAL IVP SCH (14:40)
[2021-03-02] MEDS: NPH, Human Insulin Isophane 300 UNIT/3 ML VIAL SC SCH (21:22)
[2021-03-03 07:55] LABS: Actual Bicarbonate (HCO3a) 23.5 mEq/L (22-28); Base Excess (BEa) 0.5 mEq/L (-2.0 to +3.0); CO2 Tension 31.5 mmHg (35.0-45.0); Calcium, Ionized (arterial) 1.12 mmol/L (1.12-1.30); Carboxyhemoglobin (COHb) 0.9 gm% (0.0-3.0); Hemoglobin (Hb) 9.6 g/dL (14.0-18.0); Potassium - ABG Lab 3.85 mmol/L (3.70-5.30); pH, Arterial 7.49 (7.35-7.45)
[2021-03-03 08:06] LABS: O2 Tension (PaO2), arterial 49.7 mmHg (> 80.0); Puncture Site LRA
[2021-03-03 08:07] LABS: ALV-art Gradient 267.425 mmHg (0-20)
[2021-03-03] MEDS ORDERED: Fentanyl CADD 100 ML ONE (10:18)
[2021-03-03] MEDS ORDERED: Vecuronium 10 MG VIAL ONE (10:33)
[2021-03-03] MEDS ORDERED: Sterile Water 10 ML ONE (10:33)
[2021-03-03] MEDS: Lorazepam 2 MG/ML VIAL SLOW IVP PRN (10:40)
[2021-03-03] MEDS: Fentanyl CADD 100 ML IV SCH (10:45)
[2021-03-03] MEDS: Calcium Acetate 667 MG CAP PO SCH ×3 (10:57→16:13)
[2021-03-03] MEDS: Cholecalciferol (Vitamin D3) 400 UNITS TAB PO SCH (10:58)
[2021-03-03] MEDS: Ascorbic Acid 500 mg Chewable Tablet PO SCH (10:58)
[2021-03-03] MEDS: Calcitriol 0.25 MCG CAP PO SCH (10:58)
[2021-03-03] MEDS: Zinc Sulfate 220 MG CAP PO SCH (10:58)
[2021-03-03] MEDS: Dexamethasone 10 MG/ML VIAL SLOW IVP SCH (10:59)
[2021-03-03] MEDS ORDERED: Dexamethasone 10 MG/ML VIAL SLOW IVP SCH (11:00)
[2021-03-03] MEDS: Pantoprazole 40 MG VIAL IVP SCH (11:00)
[2021-03-03] MEDS: Senokot S 8.6-50 MG TAB PO SCH ×2 (11:00→20:51)
[2021-03-03] MEDS: Norepinephrine 8 MG/0.9% NS 250 ML IVPB SCH (11:12)
[2021-03-03] MEDS ORDERED: Rocuronium Bromide 50 MG/5 ML VIAL IVP SCH (11:15)
[2021-03-03 11:36] LABS: Mean Corpuscular HGB CONC 32.6 g/dL (32.0-36.0); Mean Corpuscular Hemoglobin 31.3 pg (27.0-31.0); Mean Corpuscular Volume 96.2 fL (78.0-98.0); Platelet Count 141 thou/uL (130-400); RBC Distribution Width 14.2 % (11.5-14.5); Red Blood Cell (RBC) Count 2.56 mill/uL (4.70-6.10); White Blood Cell (WBC) Count 19.3 thou/uL (4.8-10.8)
[2021-03-03 11:56] LABS: Anion Gap 19 mmol/L (10-20); BUN (Urea Nitrogen) 70 mg/dL (8.4-25.7); Calc. Creatinine Clearance 10 mL/min (70-130); Calcium 8.7 mg/dL (7.8-10.44); Carbon Dioxide 26 mmol/L (23-31); Chloride 99 mmol/L (98-107); Glucose 174 mg/dL (80-115); Potassium 3.7 mmol/L (3.5-5.1); Sodium 140 mmol/L (136-145)
[2021-03-03 11:59] LABS: Band 16 % (5-11); Lymphocytes 4 % (21-51); MDiff Complete? YES; Monocytes 4 % (0-10); Neutrophil 76 % (42-75); Platelet Morphology Comment Appears Adequate; Polychromasia SLIGHT = 2-3 cells (100X) (0-2/hpf)
[2021-03-03] MEDS: Heparin 5,000 UNITS/ML VIAL SC SCH ×3 (12:05→20:43)
[2021-03-03] MEDS: Piperacillin/Tazobactam 3.375 GM in Sodium Chloride 0.9% 100 ML IVPB SCH ×2 (12:11→22:49)
[2021-03-03] MEDS: NPH, Human Insulin Isophane 300 UNIT/3 ML VIAL SC SCH ×2 (12:18→20:48)
[2021-03-03] MEDS: HumaLOG 300 UNITS/3 ML VIAL SC PRN ×2 (16:24→22:34)
[2021-03-04] MEDS: HumaLOG 300 UNITS/3 ML VIAL SC PRN ×2 (03:44→10:38)
[2021-03-04 04:04] LABS: Anion Gap 23 mmol/L (10-20); BUN (Urea Nitrogen) 90 mg/dL (8.4-25.7); Calc. Creatinine Clearance 8 mL/min (70-130); Calcium 8.3 mg/dL (7.8-10.44); Carbon Dioxide 21 mmol/L (23-31); Chloride 101 mmol/L (98-107); Glucose 231 mg/dL (80-115); Potassium 4.5 mmol/L (3.5-5.1); Sodium 140 mmol/L (136-145)
[2021-03-04 04:57] LABS: Band 13 % (5-11); Hemoglobin 8.2 g/dL (14.0-18.0); Lymphocytes 1 % (21-51); MDiff Complete? YES; Mean Corpuscular HGB CONC 33.1 g/dL (32.0-36.0); Mean Corpuscular Hemoglobin 31.9 pg (27.0-31.0); Mean Corpuscular Volume 96.3 fL (78.0-98.0); Mean Platelet Volume 11.8 fL (7.4-10.4); Monocytes 9 % (0-10); Neutrophil 77 % (42-75); Platelet Count 143 thou/uL (130-400); Platelet Morphology Comment Appears Adequate; Polychromasia SLIGHT = 2-3 cells (100X) (0-2/hpf); Red Blood Cell (RBC) Count 2.56 mill/uL (4.70-6.10); White Blood Cell (WBC) Count 19.2 thou/uL (4.8-10.8)
[2021-03-04] MEDS ORDERED: Norepinephrine 8 MG, Admixture Fee 1 EACH in Sodium Chloride 0.9% 250 ML 250 ML IVPB SCH (06:45)
[2021-03-04] MEDS: Norepinephrine 8 MG, Admixture Fee 1 EACH in Dextrose 5% in Water 242 ML IVPB SCH (07:44)
[2021-03-04 08:12] LABS: Actual Bicarbonate (HCO3a) 24.4 mEq/L (22-28); CO2 Tension 38.3 mmHg (35.0-45.0); Calcium, Ionized (arterial) 1.14 mmol/L (1.12-1.30); Carboxyhemoglobin (COHb) 0.8 gm% (0.0-3.0); Hemoglobin (Hb) 8.7 g/dL (14.0-18.0); Potassium - ABG Lab 4.15 mmol/L (3.70-5.30); pH, Arterial 7.42 (7.35-7.45)
[2021-03-04 08:14] LABS: O2 Tension (PaO2), arterial 59.7 mmHg (> 80.0); Puncture Site RBA
[2021-03-04 08:15] LABS: ALV-art Gradient 213.275 mmHg (0-20)
[2021-03-04] MEDS: Calcitriol 0.25 MCG CAP PO SCH (08:57)
[2021-03-04] MEDS: Calcium Acetate 667 MG CAP PO SCH ×3 (08:57→17:08)
[2021-03-04] MEDS: Pantoprazole 40 MG VIAL IVP SCH (08:57)
[2021-03-04] MEDS: Ascorbic Acid 500 mg Chewable Tablet PO SCH (08:58)
[2021-03-04] MEDS: Cholecalciferol (Vitamin D3) 400 UNITS TAB PO SCH (08:58)
[2021-03-04] MEDS: Heparin 5,000 UNITS/ML VIAL SC SCH ×3 (08:58→21:08)
[2021-03-04] MEDS: Zinc Sulfate 220 MG CAP PO SCH (08:58)
[2021-03-04] MEDS: Senokot S 8.6-50 MG TAB PO SCH ×2 (09:16→21:02)
[2021-03-04] MEDS: Dexamethasone 10 MG/ML VIAL SLOW IVP SCH (10:38)
[2021-03-04] MEDS: Piperacillin/Tazobactam 3.375 GM in Sodium Chloride 0.9% 100 ML IVPB SCH ×2 (10:39→22:43)
[2021-03-04 11:41] LABS: HBSAg Index 0.38 S/CO (0-0.99); Hep B Surf Ag Non-Reactive S/CO (NonReactive)
[2021-03-04] MEDS: NPH, Human Insulin Isophane 300 UNIT/3 ML VIAL SC SCH ×2 (12:04→21:08)
[2021-03-04] MEDS: EPOETIN ALFA-EPBX (ESRD) 10,000 UNIT/ML VIAL IVP SCH (12:25)
[2021-03-04] MEDS ORDERED: Dexmedetomidine 1,000 MCG in Sodium Chloride 0.9% 250 ML 240 ML IVPB SCH (19:30)
[2021-03-05] MEDS: Propofol 1,000 MG/100 ML VIAL IV PRN ×3 (03:47→21:47)
[2021-03-05 04:02] LABS: Actual Bicarbonate (HCO3a) 24.7 mEq/L (22-28); Base Excess (BEa) 0.6 mEq/L (-2.0 to +3.0); CO2 Tension 36.9 mmHg (35.0-45.0); Calcium, Ionized (arterial) 1.14 mmol/L (1.12-1.30); Carboxyhemoglobin (COHb) 0.9 gm% (0.0-3.0); Hemoglobin (Hb) 8.7 g/dL (14.0-18.0); O2 Tension (PaO2), arterial 67.5 mmHg (> 80.0); Potassium - ABG Lab 3.16 mmol/L (3.70-5.30); pH, Arterial 7.44 (7.35-7.45)
[2021-03-05 04:05] LABS: Puncture Site LRA
[2021-03-05 04:06] LABS: ALV-art Gradient 599.375 mmHg (0-20)
[2021-03-05 04:35] LABS: Anion Gap 17 mmol/L (10-20); BUN (Urea Nitrogen) 62 mg/dL (8.4-25.7); Calc. Creatinine Clearance 12 mL/min (70-130); Carbon Dioxide 27 mmol/L (23-31); Chloride 100 mmol/L (98-107); Potassium 3.3 mmol/L (3.5-5.1); Sodium 141 mmol/L (136-145)
[2021-03-05 04:36] LABS: Calcium 8.1 mg/dL (7.8-10.44)
[2021-03-05 04:43] LABS: Glucose 51 mg/dL (80-115)
[2021-03-05] MEDS ORDERED: Dextrose 50% Abboject 50 ML SYRINGE ONE ×2 (04:44→05:20)
[2021-03-05 06:24] LABS: Band 19 % (5-11); Hemoglobin 8.3 g/dL (14.0-18.0); Lymphocytes 3 % (21-51); MDiff Complete? YES; Mean Corpuscular HGB CONC 32.3 g/dL (32.0-36.0); Mean Corpuscular Hemoglobin 31.8 pg (27.0-31.0); Mean Corpuscular Volume 98.5 fL (78.0-98.0); Mean Platelet Volume 11.5 fL (7.4-10.4); Monocytes 1 % (0-10); Neutrophil 77 % (42-75); Platelet Count 133 thou/uL (130-400); RBC Distribution Width 14.3 % (11.5-14.5); Red Blood Cell (RBC) Count 2.59 mill/uL (4.70-6.10); White Blood Cell (WBC) Count 20.5 thou/uL (4.8-10.8)
[2021-03-05] MEDS: Norepinephrine 8 MG, Admixture Fee 1 EACH in Dextrose 5% in Water 242 ML IVPB SCH (07:10)
[2021-03-05] MEDS: Lorazepam 2 MG/ML VIAL SLOW IVP PRN ×2 (07:11→10:24)
[2021-03-05] MEDS: Pantoprazole 40 MG VIAL IVP SCH (08:21)
[2021-03-05] MEDS: Calcitriol 0.25 MCG CAP PO SCH (08:21)
[2021-03-05] MEDS: Cholecalciferol (Vitamin D3) 400 UNITS TAB PO SCH (08:21)
[2021-03-05] MEDS: Calcium Acetate 667 MG CAP PO SCH ×3 (08:21→17:16)
[2021-03-05] MEDS: Ascorbic Acid 500 mg Chewable Tablet PO SCH (08:21)
[2021-03-05] MEDS: Zinc Sulfate 220 MG CAP PO SCH (08:22)
[2021-03-05] MEDS: Senokot S 8.6-50 MG TAB PO SCH (08:22)
[2021-03-05] MEDS: Heparin 5,000 UNITS/ML VIAL SC SCH ×3 (08:23→21:13)
[2021-03-05 08:31] LABS: Actual Bicarbonate (HCO3a) 26.5 mEq/L (22-28); Base Excess (BEa) 1.6 mEq/L (-2.0 to +3.0); CO2 Tension 43.5 mmHg (35.0-45.0); Calcium, Ionized (arterial) 1.13 mmol/L (1.12-1.30); Carboxyhemoglobin (COHb) 1.2 gm% (0.0-3.0); Hemoglobin (Hb) 8.1 g/dL (14.0-18.0); O2 Tension (PaO2), arterial 70.4 mmHg (> 80.0)
[2021-03-05] MEDS: Dexamethasone 10 MG/ML VIAL SLOW IVP SCH (08:31)
[2021-03-05 08:34] LABS: ALV-art Gradient 303.025 mmHg (0-20); Puncture Site RBA
[2021-03-05] MEDS: NPH, Human Insulin Isophane 300 UNIT/3 ML VIAL SC SCH ×2 (09:44→21:13)
[2021-03-05] MEDS ORDERED: Fentanyl CADD 0 ML ONE (10:15)
[2021-03-05] MEDS ORDERED: Fentanyl CADD 100 ML ONE (10:16)
[2021-03-05] MEDS: Fentanyl CADD 100 ML IV SCH (10:24)
[2021-03-05] MEDS: Piperacillin/Tazobactam 3.375 GM in Sodium Chloride 0.9% 100 ML IVPB SCH (10:25)
[2021-03-05] MEDS: HumaLOG 300 UNITS/3 ML VIAL SC PRN (21:14)
[2021-03-06] MEDS: Senokot S 8.6-50 MG TAB PO SCH ×3 (00:09→20:21)
[2021-03-06 04:28] LABS: Hemoglobin 7.9 g/dL (14.0-18.0); Mean Corpuscular HGB CONC 32.6 g/dL (32.0-36.0); Mean Corpuscular Hemoglobin 32.2 pg (27.0-31.0); Mean Corpuscular Volume 98.9 fL (78.0-98.0); Mean Platelet Volume 11.7 fL (7.4-10.4); Platelet Count 163 thou/uL (130-400); RBC Distribution Width 14.8 % (11.5-14.5); Red Blood Cell (RBC) Count 2.46 mill/uL (4.70-6.10); White Blood Cell (WBC) Count 23.2 thou/uL (4.8-10.8)
[2021-03-06 04:32] LABS: Anion Gap 20 mmol/L (10-20); BUN (Urea Nitrogen) 79 mg/dL (8.4-25.7); Calc. Creatinine Clearance 9 mL/min (70-130); Carbon Dioxide 24 mmol/L (23-31); Chloride 98 mmol/L (98-107); Glucose 144 mg/dL (80-115); Potassium 3.9 mmol/L (3.5-5.1); Sodium 138 mmol/L (136-145)
[2021-03-06 04:58] LABS: Band 7 % (5-11); Large Platelets SLIGHT; Lymphocytes 2 % (21-51); MDiff Complete? YES; Monocytes 4 % (0-10); Neutrophil 87 % (42-75); Nucleated RBC 1 % (0); Platelet Morphology Comment Appears Adequate
[2021-03-06 07:33] LABS: Base Excess (BEa) 0.3 mEq/L (-2.0 to +3.0); CO2 Tension 47.3 mmHg (35.0-45.0); Calcium, Ionized (arterial) 1.15 mmol/L (1.12-1.30); Carboxyhemoglobin (COHb) 0.6 gm% (0.0-3.0); Hemoglobin (Hb) 8.4 g/dL (14.0-18.0); Potassium - ABG Lab 3.71 mmol/L (3.70-5.30); pH, Arterial 7.36 (7.35-7.45)
[2021-03-06 07:34] LABS: Puncture Site RBA
[2021-03-06 07:35] LABS: ALV-art Gradient 242.375 mmHg (0-20)
[2021-03-06] MEDS: Propofol 1,000 MG/100 ML VIAL IV PRN (08:21)
[2021-03-06] MEDS: Calcium Acetate 667 MG CAP PO SCH ×3 (08:22→17:41)
[2021-03-06] MEDS: Cholecalciferol (Vitamin D3) 400 UNITS TAB PO SCH (08:22)
[2021-03-06] MEDS: Ascorbic Acid 500 mg Chewable Tablet PO SCH (08:22)
[2021-03-06] MEDS: Zinc Sulfate 220 MG CAP PO SCH (08:22)
[2021-03-06] MEDS: Calcitriol 0.25 MCG CAP PO SCH (08:23)
[2021-03-06] MEDS: Dexamethasone 10 MG/ML VIAL SLOW IVP SCH (08:54)
[2021-03-06] MEDS: Heparin 5,000 UNITS/ML VIAL SC SCH ×3 (08:55→20:21)
[2021-03-06] MEDS: Pantoprazole 40 MG VIAL IVP SCH (08:55)
[2021-03-06] MEDS: NPH, Human Insulin Isophane 300 UNIT/3 ML VIAL SC SCH ×2 (09:02→21:30)
[2021-03-06] MEDS ORDERED: Fentanyl CADD 100 ML ONE (14:08)
[2021-03-06] MEDS: Fentanyl CADD 100 ML IV SCH (14:15)
[2021-03-06] MEDS: EPOETIN ALFA-EPBX (ESRD) 10,000 UNIT/ML VIAL IVP SCH (15:26)
[2021-03-06] MEDS: Norepinephrine 8 MG, Admixture Fee 1 EACH in Dextrose 5% in Water 242 ML IVPB SCH (19:44)
[2021-03-06] MEDS: Lorazepam 2 MG/ML VIAL SLOW IVP PRN (22:25)
[2021-03-06] MEDS: Acetaminophen 325 MG TAB PO PRN (23:53)
[2021-03-07] MEDS: Propofol 1,000 MG/100 ML VIAL IV PRN ×2 (01:57→21:30)
[2021-03-07 05:28] LABS: Hemoglobin 8.7 g/dL (14.0-18.0); Mean Corpuscular Hemoglobin 32.1 pg (27.0-31.0); Mean Platelet Volume 11.2 fL (7.4-10.4); Platelet Count 137 thou/uL (130-400); RBC Distribution Width 15.9 % (11.5-14.5); Red Blood Cell (RBC) Count 2.72 mill/uL (4.70-6.10)
[2021-03-07 05:49] LABS: Anion Gap 15 mmol/L (10-20); BUN (Urea Nitrogen) 60 mg/dL (8.4-25.7); Calc. Creatinine Clearance 12 mL/min (70-130); Calcium 7.9 mg/dL (7.8-10.44); Carbon Dioxide 28 mmol/L (23-31); Chloride 98 mmol/L (98-107); Glucose 99 mg/dL (80-115); Potassium 4.1 mmol/L (3.5-5.1); Sodium 137 mmol/L (136-145)
[2021-03-07 06:49] LABS: Band 28 % (5-11); Lymphocytes 2 % (21-51); MDiff Complete? YES; Monocytes 2 % (0-10); Neutrophil 68 % (42-75)
[2021-03-07 08:09] LABS: Actual Bicarbonate (HCO3a) 29.7 mEq/L (22-28); Base Excess (BEa) 2.3 mEq/L (-2.0 to +3.0); Calcium, Ionized (arterial) 1.12 mmol/L (1.12-1.30); Carboxyhemoglobin (COHb) 1.7 gm% (0.0-3.0); O2 Tension (PaO2), arterial 62.5 mmHg (> 80.0); Potassium - ABG Lab 4.16 mmol/L (3.70-5.30); pH, Arterial 7.29 (7.35-7.45)
[2021-03-07 08:30] LABS: CO2 Tension 63.2 mmHg (35.0-45.0); Puncture Site RBA
[2021-03-07] MEDS: Zinc Sulfate 220 MG CAP PO SCH (09:10)
[2021-03-07] MEDS: Senokot S 8.6-50 MG TAB PO SCH ×2 (09:10→21:29)
[2021-03-07] MEDS: Cholecalciferol (Vitamin D3) 400 UNITS TAB PO SCH (09:10)
[2021-03-07] MEDS: Calcitriol 0.25 MCG CAP PO SCH (09:10)
[2021-03-07] MEDS: Calcium Acetate 667 MG CAP PO SCH ×3 (09:10→17:14)
[2021-03-07] MEDS: Ascorbic Acid 500 mg Chewable Tablet PO SCH (09:10)
[2021-03-07] MEDS: Pantoprazole 40 MG VIAL IVP SCH (09:11)
[2021-03-07] MEDS: Dexamethasone 10 MG/ML VIAL SLOW IVP SCH (09:11)
[2021-03-07] MEDS: NPH, Human Insulin Isophane 300 UNIT/3 ML VIAL SC SCH ×2 (09:25→21:27)
[2021-03-07] MEDS: Heparin 5,000 UNITS/ML VIAL SC SCH ×3 (09:26→21:28)
[2021-03-07] MEDS ORDERED: Fentanyl CADD 100 ML ONE (13:12)
[2021-03-07] MEDS: Fentanyl CADD 100 ML IV SCH (13:23)
[2021-03-08] MEDS: Lorazepam 2 MG/ML VIAL SLOW IVP PRN ×2 (00:15→11:20)
[2021-03-08] MEDS: Norepinephrine 8 MG, Admixture Fee 1 EACH in Dextrose 5% in Water 242 ML IVPB SCH (00:16)
[2021-03-08 06:54] LABS: Hemoglobin 8.1 g/dL (14.0-18.0); Mean Corpuscular HGB CONC 32.7 g/dL (32.0-36.0); Mean Corpuscular Hemoglobin 32.2 pg (27.0-31.0); Mean Corpuscular Volume 98.4 fL (78.0-98.0); Mean Platelet Volume 11.5 fL (7.4-10.4); Platelet Count 152 thou/uL (130-400); RBC Distribution Width 16.1 % (11.5-14.5); Red Blood Cell (RBC) Count 2.53 mill/uL (4.70-6.10); White Blood Cell (WBC) Count 20.2 thou/uL (4.8-10.8)
[2021-03-08 07:12] LABS: Anion Gap 18 mmol/L (10-20); BUN (Urea Nitrogen) 86 mg/dL (8.4-25.7); Calc. Creatinine Clearance 10 mL/min (70-130); Calcium 8.3 mg/dL (7.8-10.44); Carbon Dioxide 26 mmol/L (23-31); Chloride 94 mmol/L (98-107); Glucose 109 mg/dL (80-115); Sodium 133 mmol/L (136-145)
[2021-03-08 07:16] LABS: Actual Bicarbonate (HCO3a) 27.3 mEq/L (22-28); Base Excess (BEa) 0.1 mEq/L (-2.0 to +3.0); CO2 Tension 59.8 mmHg (35.0-45.0); Calcium, Ionized (arterial) 1.18 mmol/L (1.12-1.30); Carboxyhemoglobin (COHb) 1.1 gm% (0.0-3.0); Hemoglobin (Hb) 8.2 g/dL (14.0-18.0); O2 Tension (PaO2), arterial 62.4 mmHg (> 80.0); Potassium - ABG Lab 4.72 mmol/L (3.70-5.30); pH, Arterial 7.28 (7.35-7.45)
[2021-03-08 07:18] LABS: Puncture Site RBA
[2021-03-08 07:23] LABS: Anisocytosis SLIGHT = 6-15 cells (100X) (0-5/hpf); Band 33 % (5-11); Eosinophils 1 % (0-10); Large Platelets SLIGHT; Lymphocytes 4 % (21-51); MDiff Complete? YES; Monocytes 6 % (0-10); Neutrophil 56 % (42-75); Platelet Morphology Comment Appears Adequate; Polychromasia SLIGHT = 2-3 cells (100X) (0-2/hpf)
[2021-03-08] MEDS: Senokot S 8.6-50 MG TAB PO SCH ×2 (09:40→21:47)
[2021-03-08] MEDS: Dexamethasone 10 MG/ML VIAL SLOW IVP SCH (09:40)
[2021-03-08] MEDS: Calcitriol 0.25 MCG CAP PO SCH (09:40)
[2021-03-08] MEDS: Cholecalciferol (Vitamin D3) 400 UNITS TAB PO SCH (09:41)
[2021-03-08] MEDS: Ascorbic Acid 500 mg Chewable Tablet PO SCH (09:41)
[2021-03-08] MEDS: Zinc Sulfate 220 MG CAP PO SCH (09:41)
[2021-03-08] MEDS: Calcium Acetate 667 MG CAP PO SCH ×3 (09:42→15:37)
[2021-03-08] MEDS: Heparin 5,000 UNITS/ML VIAL SC SCH ×3 (09:42→21:47)
[2021-03-08] MEDS: Pantoprazole 40 MG VIAL IVP SCH (09:43)
[2021-03-08] MEDS: NPH, Human Insulin Isophane 300 UNIT/3 ML VIAL SC SCH ×2 (09:43→21:47)
[2021-03-08] MEDS: Morphine 4 MG/ML VIAL SLOW IVP PRN (11:20)
[2021-03-08] MEDS ORDERED: Fentanyl CADD 100 ML ONE (11:31)
[2021-03-08] MEDS: Fentanyl CADD 100 ML IV SCH (11:32)
[2021-03-08] MEDS ORDERED: Vecuronium 10 MG VIAL ONE (11:38)
[2021-03-08] MEDS ORDERED: Vancomycin HCl 1 GM in Sodium Chloride 0.9% 250 ML 250 ML IVPB SCH (13:34)
[2021-03-08] MEDS ORDERED: Meropenem 1 GM in Admixture Fee 1 EACH IVPB SCH (13:45)
[2021-03-08] MEDS ORDERED: MEROPENEM 1 GM/50 ML 1 GM in Premix Bag 1 BAG IVPB SCH (14:00)
[2021-03-08] MEDS: Vecuronium 10 MG VIAL IV PRN (14:07)
[2021-03-08] MEDS: Micafungin 100 MG in Sodium Chloride 0.9% 100 ML IVPB SCH (14:07)
[2021-03-08] MEDS: Propofol 1,000 MG/100 ML VIAL IV PRN (14:14)
[2021-03-08] MEDS ORDERED: Vancomycin 1 GM in Premix Bag 1 BAG IVPB SCH (15:15)
[2021-03-08] MEDS: HumaLOG 300 UNITS/3 ML VIAL SC PRN ×2 (16:50→21:48)
[2021-03-08] MEDS: Meropenem 500 MG in Sodium Chloride 0.9% 100 ML IVPB SCH (21:54)
[2021-03-09] MEDS ORDERED: Sterile Water 10 ML ONE ×2 (04:33→18:13)
[2021-03-09 04:35] LABS: #Lymphocytes 0.4 thou/uL (1.20-3.40); #Monocytes 0.6 thou/uL (0.11-0.59); #Neutrophils 20.2 thou/uL (1.40-6.50); %Basophils 0.1 % (0.0-1.0); %Lymphocytes 1.9 % (21.0-51.0); %Monocytes 2.7 % (0.0-10.0); %Neutrophils 95.2 % (42.0-75.0); Hemoglobin 8.1 g/dL (14.0-18.0); Mean Corpuscular HGB CONC 33.5 g/dL (32.0-36.0); Mean Corpuscular Hemoglobin 32.1 pg (27.0-31.0); Mean Platelet Volume 11.3 fL (7.4-10.4); Platelet Count 172 thou/uL (130-400); RBC Distribution Width 15.5 % (11.5-14.5); Red Blood Cell (RBC) Count 2.53 mill/uL (4.70-6.10); White Blood Cell (WBC) Count 21.2 thou/uL (4.8-10.8)
[2021-03-09] MEDS: Propofol 1,000 MG/100 ML VIAL IV PRN ×2 (04:47→16:35)
[2021-03-09] MEDS: Lorazepam 2 MG/ML VIAL SLOW IVP PRN (04:50)
[2021-03-09] MEDS: Vecuronium 10 MG VIAL IV PRN ×2 (04:50→18:14)
[2021-03-09 05:05] LABS: Anion Gap 18 mmol/L (10-20); Calc. Creatinine Clearance 9 mL/min (70-130); Calcium 8.4 mg/dL (7.8-10.44); Carbon Dioxide 25 mmol/L (23-31); Chloride 91 mmol/L (98-107); Glucose 125 mg/dL (80-115); Potassium 5.4 mmol/L (3.5-5.1); Sodium 129 mmol/L (136-145)
[2021-03-09 05:16] LABS: BUN (Urea Nitrogen) 106 mg/dL (8.4-25.7)
[2021-03-09] MEDS ORDERED: Fentanyl CADD 100 ML ONE (06:52)
[2021-03-09] MEDS: Fentanyl CADD 100 ML IV SCH (07:21)
[2021-03-09] MEDS: Calcitriol 0.25 MCG CAP PO SCH (09:24)
[2021-03-09] MEDS: Zinc Sulfate 220 MG CAP PO SCH (09:24)
[2021-03-09] MEDS: Calcium Acetate 667 MG CAP PO SCH ×3 (09:24→17:26)
[2021-03-09] MEDS: Senokot S 8.6-50 MG TAB PO SCH ×2 (09:24→21:22)
[2021-03-09] MEDS: Ascorbic Acid 500 mg Chewable Tablet PO SCH (09:24)
[2021-03-09] MEDS: NPH, Human Insulin Isophane 300 UNIT/3 ML VIAL SC SCH ×2 (09:25→21:33)
[2021-03-09] MEDS: Heparin 5,000 UNITS/ML VIAL SC SCH ×3 (09:25→21:21)
[2021-03-09] MEDS: Dexamethasone 10 MG/ML VIAL SLOW IVP SCH (09:25)
[2021-03-09] MEDS: Pantoprazole 40 MG VIAL IVP SCH (09:25)
[2021-03-09] MEDS: Cholecalciferol (Vitamin D3) 400 UNITS TAB PO SCH (09:26)
[2021-03-09] MEDS: HumaLOG 300 UNITS/3 ML VIAL SC PRN (10:33)
[2021-03-09] MEDS: Norepinephrine 8 MG, Admixture Fee 1 EACH in Dextrose 5% in Water 242 ML IVPB SCH ×2 (13:20→22:46)
[2021-03-09 14:09] LABS: Actual Bicarbonate (HCO3a) 29.1 mEq/L (22-28); Base Excess (BEa) 3.3 mEq/L (-2.0 to +3.0); CO2 Tension 49.7 mmHg (35.0-45.0); Calcium, Ionized (arterial) 1.15 mmol/L (1.12-1.30); Carboxyhemoglobin (COHb) 0.9 gm% (0.0-3.0); Hemoglobin (Hb) 10.6 g/dL (14.0-18.0); Potassium - ABG Lab 3.72 mmol/L (3.70-5.30); pH, Arterial 7.39 (7.35-7.45)
[2021-03-09 14:10] LABS: ALV-art Gradient 372.615 mmHg (0-20); O2 Tension (PaO2), arterial 50.1 mmHg (> 80.0); Puncture Site RRA
[2021-03-09] MEDS ORDERED: Midodrine HCl 5 MG TAB PER TUBE SCH (15:00)
[2021-03-09] MEDS: Micafungin 100 MG in Sodium Chloride 0.9% 100 ML IVPB SCH (15:40)
[2021-03-09] MEDS: EPOETIN ALFA-EPBX (ESRD) 10,000 UNIT/ML VIAL IVP SCH (17:06)
[2021-03-09] MEDS: Meropenem 500 MG in Sodium Chloride 0.9% 100 ML IVPB SCH (21:22)
[2021-03-10] MEDS: Lorazepam 2 MG/ML VIAL SLOW IVP PRN ×3 (00:45→02:53)
[2021-03-10] MEDS ORDERED: Fentanyl CADD 100 ML ONE ×2 (03:33→23:34)
[2021-03-10] MEDS: Fentanyl CADD 100 ML IV SCH ×2 (03:42→23:40)
[2021-03-10 05:10] LABS: ALT (SGPT) 16 U/L (8-55); AST (SGOT) 19 U/L (5-34); Albumin 1.8 g/dL (3.4-4.8); Alkaline Phosphatase 297 U/L (40-110); Anion Gap 20 mmol/L (10-20); BUN (Urea Nitrogen) 72 mg/dL (8.4-25.7); Bilirubin, Total 0.5 mg/dL (0.2-1.2); Calc. Creatinine Clearance 14 mL/min (70-130); Calcium 8.2 mg/dL (7.8-10.44); Carbon Dioxide 25 mmol/L (23-31); Chloride 94 mmol/L (98-107); Globulin 3.5 g/dL (2.4-3.5); Glucose 69 mg/dL (80-115); Magnesium 1.8 mg/dL (1.6-2.6); Phosphorus 4.4 mg/dL (2.3-4.7); Potassium 4.4 mmol/L (3.5-5.1); Protein, Total 5.3 g/dL (5.8-8.1); Sodium 135 mmol/L (136-145)
[2021-03-10 05:11] LABS: Anion Gap 21 mmol/L (10-20); BUN (Urea Nitrogen) 67 mg/dL (8.4-25.7); Calc. Creatinine Clearance 14 mL/min (70-130); Calcium 8.2 mg/dL (7.8-10.44); Carbon Dioxide 24 mmol/L (23-31); Chloride 94 mmol/L (98-107); Glucose 70 mg/dL (80-115); Potassium 4.5 mmol/L (3.5-5.1); Sodium 134 mmol/L (136-145)
[2021-03-10] MEDS: Dextrose 50% Abboject 50 ML SYRINGE SLOW IVP PRN (05:27)
[2021-03-10 05:28] LABS: Band 20 % (5-11); Hemoglobin 8.8 g/dL (14.0-18.0); Lymphocytes 4 % (21-51); MDiff Complete? YES; Mean Corpuscular HGB CONC 32.4 g/dL (32.0-36.0); Mean Corpuscular Hemoglobin 31.4 pg (27.0-31.0); Mean Platelet Volume 11.2 fL (7.4-10.4); Metamyelocyte 1 % (0-0); Neutrophil 75 % (42-75); Platelet Count 146 thou/uL (130-400); RBC Distribution Width 15.5 % (11.5-14.5); White Blood Cell (WBC) Count 13.1 thou/uL (4.8-10.8)
[2021-03-10] MEDS ORDERED: Sterile Water 10 ML ONE ×2 (07:21→11:39)
[2021-03-10] MEDS: Vecuronium 10 MG VIAL IV PRN ×2 (07:24→16:00)
[2021-03-10] MEDS: Calcium Acetate 667 MG CAP PO SCH (08:42)
[2021-03-10] MEDS: Ascorbic Acid 500 mg Chewable Tablet PO SCH (08:42)
[2021-03-10] MEDS: Cholecalciferol (Vitamin D3) 400 UNITS TAB PO SCH (08:42)
[2021-03-10] MEDS: Dexamethasone 10 MG/ML VIAL SLOW IVP SCH (08:42)
[2021-03-10] MEDS: Calcitriol 0.25 MCG CAP PO SCH (08:43)
[2021-03-10] MEDS: Senokot S 8.6-50 MG TAB PO SCH ×2 (08:43→21:26)
[2021-03-10] MEDS: Zinc Sulfate 220 MG CAP PO SCH (08:44)
[2021-03-10] MEDS: Acetaminophen 325 MG TAB PO PRN (08:44)
[2021-03-10] MEDS: Pantoprazole 40 MG VIAL IVP SCH (08:44)
[2021-03-10] MEDS: Heparin 5,000 UNITS/ML VIAL SC SCH ×3 (08:45→21:24)
[2021-03-10] MEDS: Norepinephrine 8 MG, Admixture Fee 1 EACH in Dextrose 5% in Water 242 ML IVPB SCH (08:46)
[2021-03-10] MEDS: NPH, Human Insulin Isophane 300 UNIT/3 ML VIAL SC SCH ×2 (09:21→21:50)
[2021-03-10] MEDS: Micafungin 100 MG in Sodium Chloride 0.9% 100 ML IVPB SCH (14:53)
[2021-03-10] MEDS: Metoclopramide HCl 10 MG/2 ML VIAL IVP PRN (16:36)
[2021-03-10] MEDS: HumaLOG 300 UNITS/3 ML VIAL SC PRN (18:03)
[2021-03-10] MEDS: Meropenem 500 MG in Sodium Chloride 0.9% 100 ML IVPB SCH (21:27)
[2021-03-10] MEDS: Propofol 1,000 MG/100 ML VIAL IV PRN (23:40)
[2021-03-11] MEDS ORDERED: Sterile Water 10 ML ONE (00:19)
[2021-03-11] MEDS: Lorazepam 2 MG/ML VIAL SLOW IVP PRN ×3 (01:38→08:17)
[2021-03-11] MEDS: Metoclopramide HCl 10 MG/2 ML VIAL IVP PRN (01:55)
[2021-03-11] MEDS: Norepinephrine 8 MG, Admixture Fee 1 EACH in Dextrose 5% in Water 242 ML IVPB SCH ×3 (02:57→15:37)
[2021-03-11 04:03] LABS: ALT (SGPT) 12 U/L (8-55); AST (SGOT) 12 U/L (5-34); Albumin 1.7 g/dL (3.4-4.8); Alkaline Phosphatase 294 U/L (40-110); Anion Gap 20 mmol/L (10-20); BUN (Urea Nitrogen) 99 mg/dL (8.4-25.7); Bilirubin, Total 0.6 mg/dL (0.2-1.2); Calc. Creatinine Clearance 11 mL/min (70-130); Calcium 8.4 mg/dL (7.8-10.44); Carbon Dioxide 25 mmol/L (23-31); Chloride 92 mmol/L (98-107); Globulin 3.4 g/dL (2.4-3.5); Glucose 129 mg/dL (80-115); Phosphorus 6.4 mg/dL (2.3-4.7); Potassium 4.8 mmol/L (3.5-5.1); Protein, Total 5.1 g/dL (5.8-8.1); Sodium 132 mmol/L (136-145)
[2021-03-11] MEDS: Acetaminophen 325 MG TAB PO PRN (04:57)
[2021-03-11 06:28] LABS: Anisocytosis SLIGHT = 6-15 cells (100X) (0-5/hpf); Band 21 % (5-11); Hemoglobin 8.5 g/dL (14.0-18.0); Lymphocytes 1 % (21-51); MDiff Complete? YES; Mean Corpuscular HGB CONC 30.5 g/dL (32.0-36.0); Mean Corpuscular Hemoglobin 29.9 pg (27.0-31.0); Mean Platelet Volume 12.7 fL (7.4-10.4); Monocytes 2 % (0-10); Neutrophil 76 % (42-75); Platelet Count 86 thou/uL (130-400); Platelet Morphology Comment Appears Decreased; RBC Distribution Width 15.7 % (11.5-14.5); Red Blood Cell (RBC) Count 2.85 mill/uL (4.70-6.10)
[2021-03-11] MEDS: Vecuronium 10 MG VIAL IV PRN ×2 (06:30→08:17)
[2021-03-11] MEDS: Ascorbic Acid 500 mg Chewable Tablet PO SCH (08:17)
[2021-03-11] MEDS: Cholecalciferol (Vitamin D3) 400 UNITS TAB PO SCH (08:17)
[2021-03-11] MEDS: Senokot S 8.6-50 MG TAB PO SCH ×2 (08:17→20:34)
[2021-03-11] MEDS: Propofol 1,000 MG/100 ML VIAL IV PRN (08:42)
[2021-03-11] MEDS: Zinc Sulfate 220 MG CAP PO SCH (08:52)
[2021-03-11] MEDS: Dexamethasone 10 MG/ML VIAL SLOW IVP SCH (08:52)
[2021-03-11] MEDS: Heparin 5,000 UNITS/ML VIAL SC SCH ×3 (08:52→20:34)
[2021-03-11] MEDS: Pantoprazole 40 MG VIAL IVP SCH (09:19)
[2021-03-11] MEDS: NPH, Human Insulin Isophane 300 UNIT/3 ML VIAL SC SCH ×2 (09:32→20:35)
[2021-03-11 10:02] LABS: Actual Bicarbonate (HCO3a) 21.8 mEq/L (22-28); CO2 Tension 42.6 mmHg (35.0-45.0); Calcium, Ionized (arterial) 1.09 mmol/L (1.12-1.30); Carboxyhemoglobin (COHb) 0.9 gm% (0.0-3.0); Hemoglobin (Hb) 9.7 g/dL (14.0-18.0); Potassium - ABG Lab 4.87 mmol/L (3.70-5.30); pH, Arterial 7.33 (7.35-7.45)
[2021-03-11 10:37] LABS: Puncture Site RRA
[2021-03-11] MEDS ORDERED: Vancomycin 1 GM in Premix Bag 1 BAG IVPB SCH ×2 (13:30→19:00)
[2021-03-11] MEDS: EPOETIN ALFA-EPBX (ESRD) 10,000 UNIT/ML VIAL IVP SCH (13:43)
[2021-03-11 15:36] LABS: Actual Bicarbonate (HCO3a) 31.5 mEq/L (22-28); Base Excess (BEa) 5.2 mEq/L (-2.0 to +3.0); CO2 Tension 54.9 mmHg (35.0-45.0); Calcium, Ionized (arterial) 1.14 mmol/L (1.12-1.30); Carboxyhemoglobin (COHb) 0.2 gm% (0.0-3.0); Hemoglobin (Hb) 10.5 g/dL (14.0-18.0); Potassium - ABG Lab 3.48 mmol/L (3.70-5.30); pH, Arterial 7.38 (7.35-7.45)
[2021-03-11] MEDS: Micafungin 100 MG in Sodium Chloride 0.9% 100 ML IVPB SCH (15:36)
[2021-03-11 15:41] LABS: ALV-art Gradient 379.475 mmHg (0-20); Puncture Site RRA
[2021-03-11 18:05] LABS: Vancomycin, Random 6.8 ug/mL (See Comment)
[2021-03-11] MEDS ORDERED: Fentanyl CADD 100 ML ONE (18:14)
[2021-03-11] MEDS: Fentanyl CADD 100 ML IV SCH (18:18)
[2021-03-11] MEDS ORDERED: HOLD VANCOMYCIN FOR LEVEL >20 FS SCH (19:00)
[2021-03-11] MEDS ORDERED: Vancomycin HCl 250 MG in Sodium Chloride 0.9% 100 ML IVPB SCH (19:00)
[2021-03-11] MEDS ORDERED: Vancomycin HCl 750 MG in Sodium Chloride 0.9% 250 ML 250 ML IVPB SCH (19:00)
[2021-03-11] MEDS: HumaLOG 300 UNITS/3 ML VIAL SC PRN (20:36)
[2021-03-11] MEDS: Meropenem 500 MG in Sodium Chloride 0.9% 100 ML IVPB SCH (21:46)
[2021-03-12] MEDS: Propofol 1,000 MG/100 ML VIAL IV PRN ×2 (03:50→14:54)
[2021-03-12] MEDS: HumaLOG 300 UNITS/3 ML VIAL SC PRN ×3 (03:51→21:38)
[2021-03-12 04:35] LABS: Band 28 % (5-11); Hemoglobin 9.1 g/dL (14.0-18.0); Hypochromia SLIGHT = 6-15 cells (100X) (0-5/hpf); MDiff Complete? YES; Mean Corpuscular HGB CONC 31.5 g/dL (32.0-36.0); Mean Corpuscular Hemoglobin 31.1 pg (27.0-31.0); Mean Corpuscular Volume 98.8 fL (78.0-98.0); Mean Platelet Volume 14.3 fL (7.4-10.4); Monocytes 7 % (0-10); Neutrophil 65 % (42-75); Nucleated RBC 1 % (0); Platelet Count 38 thou/uL (130-400); Platelet Morphology Comment Appears Decreased; RBC Distribution Width 15.4 % (11.5-14.5); Red Blood Cell (RBC) Count 2.94 mill/uL (4.70-6.10); White Blood Cell (WBC) Count 28.9 thou/uL (4.8-10.8)
[2021-03-12 04:42] LABS: ALT (SGPT) 12 U/L (8-55); AST (SGOT) 11 U/L (5-34); Albumin 1.6 g/dL (3.4-4.8); Alkaline Phosphatase 259 U/L (40-110); Anion Gap 15 mmol/L (10-20); BUN (Urea Nitrogen) 56 mg/dL (8.4-25.7); Bilirubin, Total 0.6 mg/dL (0.2-1.2); Calc. Creatinine Clearance 18 mL/min (70-130); Calcium 8.5 mg/dL (7.8-10.44); Carbon Dioxide 29 mmol/L (23-31); Chloride 95 mmol/L (98-107); Globulin 3.4 g/dL (2.4-3.5); Glucose 172 mg/dL (80-115); Potassium 4.2 mmol/L (3.5-5.1); Sodium 135 mmol/L (136-145)
[2021-03-12 04:46] LABS: Phosphorus 6.1 mg/dL (2.3-4.7)
[2021-03-12] MEDS: Vecuronium 10 MG VIAL IV PRN ×2 (05:23→21:03)
[2021-03-12] MEDS: Lorazepam 2 MG/ML VIAL SLOW IVP PRN ×2 (05:24→21:03)
[2021-03-12] MEDS: Norepinephrine 8 MG, Admixture Fee 1 EACH in Dextrose 5% in Water 242 ML IVPB SCH ×2 (05:24→15:31)
[2021-03-12] MEDS: Metoclopramide HCl 10 MG/2 ML VIAL IVP PRN (05:59)
[2021-03-12 07:46] LABS: Actual Bicarbonate (HCO3a) 27.8 mEq/L (22-28); Base Excess (BEa) 0.5 mEq/L (-2.0 to +3.0); CO2 Tension 59.3 mmHg (35.0-45.0); Calcium, Ionized (arterial) 1.17 mmol/L (1.12-1.30); Carboxyhemoglobin (COHb) 0.5 gm% (0.0-3.0); Hemoglobin (Hb) 9.8 g/dL (14.0-18.0); O2 Tension (PaO2), arterial 60.5 mmHg (> 80.0); Potassium - ABG Lab 3.95 mmol/L (3.70-5.30); pH, Arterial 7.29 (7.35-7.45)
[2021-03-12 07:51] LABS: Puncture Site RBA
[2021-03-12 07:52] LABS: ALV-art Gradient 364.475 mmHg (0-20)
[2021-03-12] MEDS: Metoclopramide HCl 10 MG/2 ML VIAL IVP SCH ×3 (08:49→23:57)
[2021-03-12] MEDS: Senokot S 8.6-50 MG TAB PO SCH ×2 (08:49→21:04)
[2021-03-12] MEDS: Zinc Sulfate 220 MG CAP PO SCH (08:49)
[2021-03-12] MEDS: Ascorbic Acid 500 mg Chewable Tablet PO SCH (08:49)
[2021-03-12] MEDS: Pantoprazole 40 MG VIAL IVP SCH (08:49)
[2021-03-12] MEDS: Cholecalciferol (Vitamin D3) 400 UNITS TAB PO SCH (08:49)
[2021-03-12] MEDS: Dexamethasone 10 MG/ML VIAL SLOW IVP SCH (08:49)
[2021-03-12] MEDS: NPH, Human Insulin Isophane 300 UNIT/3 ML VIAL SC SCH ×2 (08:50→21:38)
[2021-03-12] MEDS ORDERED: Fentanyl CADD 100 ML ONE (10:55)
[2021-03-12] MEDS: Fentanyl CADD 100 ML IV SCH (10:59)
[2021-03-12] MEDS: Micafungin 100 MG in Sodium Chloride 0.9% 100 ML IVPB SCH (14:15)
[2021-03-12] MEDS: Meropenem 500 MG in Sodium Chloride 0.9% 100 ML IVPB SCH (21:08)
[2021-03-13] MEDS: HumaLOG 300 UNITS/3 ML VIAL SC PRN (03:54)
[2021-03-13 04:15] LABS: Hemoglobin 9.3 g/dL (14.0-18.0); Mean Corpuscular HGB CONC 31.4 g/dL (32.0-36.0); Mean Corpuscular Hemoglobin 30.9 pg (27.0-31.0); Mean Corpuscular Volume 98.6 fL (78.0-98.0); Mean Platelet Volume 16.1 fL (7.4-10.4); Platelet Count 24 thou/uL (130-400); RBC Distribution Width 15.4 % (11.5-14.5); Red Blood Cell (RBC) Count 3.02 mill/uL (4.70-6.10); White Blood Cell (WBC) Count 30.3 thou/uL (4.8-10.8)
[2021-03-13 04:52] LABS: Band 53 % (5-11); Lymphocytes 1 % (21-51); MDiff Complete? YES; Neutrophil 46 % (42-75); Platelet Morphology Comment Appears Decreased
[2021-03-13] MEDS: Propofol 1,000 MG/100 ML VIAL IV PRN (05:34)
[2021-03-13] MEDS: Norepinephrine 8 MG, Admixture Fee 1 EACH in Dextrose 5% in Water 242 ML IVPB SCH ×3 (05:34→23:02)
[2021-03-13] MEDS ORDERED: Fentanyl CADD 100 ML ONE ×2 (06:30→20:00)
[2021-03-13] MEDS: Fentanyl CADD 100 ML IV SCH ×2 (06:36→20:54)
[2021-03-13 07:06] LABS: ALT (SGPT) 8 U/L (8-55); AST (SGOT) 8 U/L (5-34); Albumin 1.6 g/dL (3.4-4.8); Alkaline Phosphatase 234 U/L (40-110); Anion Gap 20 mmol/L (10-20); BUN (Urea Nitrogen) 85 mg/dL (8.4-25.7); Bilirubin, Total 0.6 mg/dL (0.2-1.2); Calc. Creatinine Clearance 14 mL/min (70-130); Calcium 8.6 mg/dL (7.8-10.44); Carbon Dioxide 25 mmol/L (23-31); Chloride 93 mmol/L (98-107); Globulin 3.4 g/dL (2.4-3.5); Glucose 162 mg/dL (80-115); Magnesium 2.1 mg/dL (1.6-2.6); Potassium 4.6 mmol/L (3.5-5.1); Sodium 133 mmol/L (136-145)
[2021-03-13] MEDS: Metoclopramide HCl 10 MG/2 ML VIAL IVP SCH ×2 (08:29→16:28)
[2021-03-13] MEDS: NPH, Human Insulin Isophane 300 UNIT/3 ML VIAL SC SCH ×2 (08:34→20:56)
[2021-03-13] MEDS: Ascorbic Acid 500 mg Chewable Tablet PO SCH (08:58)
[2021-03-13] MEDS: Zinc Sulfate 220 MG CAP PO SCH (08:59)
[2021-03-13] MEDS: Dexamethasone 10 MG/ML VIAL SLOW IVP SCH (08:59)
[2021-03-13] MEDS: Pantoprazole 40 MG VIAL IVP SCH (08:59)
[2021-03-13] MEDS: Senokot S 8.6-50 MG TAB PO SCH ×3 (08:59→20:55)
[2021-03-13] MEDS: Cholecalciferol (Vitamin D3) 400 UNITS TAB PO SCH (08:59)
[2021-03-13 10:59] LABS: Vancomycin, Random 12.9 ug/mL (See Comment)
[2021-03-13] MEDS: EPOETIN ALFA-EPBX (ESRD) 10,000 UNIT/ML VIAL IVP SCH (11:22)
[2021-03-13] MEDS: Micafungin 100 MG in Sodium Chloride 0.9% 100 ML IVPB SCH (14:04)
[2021-03-13] MEDS: Vancomycin HCl 500 MG in Sodium Chloride 0.9% 100 ML IVPB SCH (16:28)
[2021-03-13] MEDS: Meropenem 500 MG in Sodium Chloride 0.9% 100 ML IVPB SCH (21:11)
[2021-03-14] MEDS: Metoclopramide HCl 10 MG/2 ML VIAL IVP SCH ×3 (00:42→15:06)
[2021-03-14 04:10] LABS: Hemoglobin 9.1 g/dL (14.0-18.0); Mean Corpuscular Hemoglobin 31.1 pg (27.0-31.0); Mean Corpuscular Volume 97.2 fL (78.0-98.0); Mean Platelet Volume 16.3 fL (7.4-10.4); Platelet Count 22 thou/uL (130-400); RBC Distribution Width 15.3 % (11.5-14.5); Red Blood Cell (RBC) Count 2.93 mill/uL (4.70-6.10); White Blood Cell (WBC) Count 22.8 thou/uL (4.8-10.8)
[2021-03-14 04:24] LABS: Band 10 % (5-11); Hypochromia SLIGHT = 6-15 cells (100X) (0-5/hpf); MDiff Complete? YES; Monocytes 5 % (0-10); Neutrophil 85 % (42-75); Platelet Morphology Comment Appears Decreased
[2021-03-14 04:36] LABS: ALT (SGPT) 9 U/L (8-55); AST (SGOT) 9 U/L (5-34); Albumin 1.7 g/dL (3.4-4.8); Alkaline Phosphatase 212 U/L (40-110); Anion Gap 16 mmol/L (10-20); BUN (Urea Nitrogen) 57 mg/dL (8.4-25.7); Bilirubin, Total 0.8 mg/dL (0.2-1.2); Calc. Creatinine Clearance 19 mL/min (70-130); Calcium 8.5 mg/dL (7.8-10.44); Carbon Dioxide 27 mmol/L (23-31); Chloride 96 mmol/L (98-107); Globulin 3.5 g/dL (2.4-3.5); Glucose 105 mg/dL (80-115); Magnesium 1.9 mg/dL (1.6-2.6); Phosphorus 5.3 mg/dL (2.3-4.7); Potassium 3.8 mmol/L (3.5-5.1); Protein, Total 5.2 g/dL (5.8-8.1); Sodium 135 mmol/L (136-145)
[2021-03-14 06:51] LABS: Actual Bicarbonate (HCO3a) 27.7 mEq/L (22-28); Base Excess (BEa) 2.1 mEq/L (-2.0 to +3.0); CO2 Tension 48.4 mmHg (35.0-45.0); Calcium, Ionized (arterial) 1.16 mmol/L (1.12-1.30); Carboxyhemoglobin (COHb) 0.2 gm% (0.0-3.0); Hemoglobin (Hb) 9.5 g/dL (14.0-18.0); Potassium - ABG Lab 3.81 mmol/L (3.70-5.30); pH, Arterial 7.38 (7.35-7.45)
[2021-03-14 06:52] LABS: Puncture Site RRA
[2021-03-14] MEDS: Cholecalciferol (Vitamin D3) 400 UNITS TAB PO SCH (09:27)
[2021-03-14] MEDS: Dexamethasone 10 MG/ML VIAL SLOW IVP SCH (09:27)
[2021-03-14] MEDS: NPH, Human Insulin Isophane 300 UNIT/3 ML VIAL SC SCH ×2 (09:27→20:05)
[2021-03-14] MEDS: Zinc Sulfate 220 MG CAP PO SCH (09:27)
[2021-03-14] MEDS: Ascorbic Acid 500 mg Chewable Tablet PO SCH (09:27)
[2021-03-14] MEDS: Senokot S 8.6-50 MG TAB PO SCH ×2 (09:28→20:05)
[2021-03-14] MEDS: Pantoprazole 40 MG VIAL IVP SCH (09:28)
[2021-03-14] MEDS: Micafungin 100 MG in Sodium Chloride 0.9% 100 ML IVPB SCH (13:28)
[2021-03-14] MEDS ORDERED: Fentanyl CADD 100 ML ONE (19:41)
[2021-03-14] MEDS: Dextrose 50% Abboject 50 ML SYRINGE SLOW IVP PRN (20:06)
[2021-03-14] MEDS: Fentanyl CADD 100 ML IV SCH (20:06)
[2021-03-14] MEDS: Meropenem 500 MG in Sodium Chloride 0.9% 100 ML IVPB SCH (21:14)
[2021-03-14] MEDS: Lorazepam 2 MG/ML VIAL SLOW IVP PRN (21:15)
[2021-03-15] MEDS: Metoclopramide HCl 10 MG/2 ML VIAL IVP SCH ×4 (00:17→23:45)
[2021-03-15 04:24] LABS: Mean Corpuscular HGB CONC 33.7 g/dL (32.0-36.0); Mean Corpuscular Volume 94.9 fL (78.0-98.0); Mean Platelet Volume 14.3 fL (7.4-10.4); Platelet Count 19 thou/uL (130-400); White Blood Cell (WBC) Count 19.1 thou/uL (4.8-10.8)
[2021-03-15 04:32] LABS: Phosphorus 5.3 mg/dL (2.3-4.7)
[2021-03-15 04:38] LABS: ALT (SGPT) 17 U/L (8-55); AST (SGOT) 17 U/L (5-34); Albumin 1.5 g/dL (3.4-4.8); Alkaline Phosphatase 208 U/L (40-110); Anion Gap 16 mmol/L (10-20); BUN (Urea Nitrogen) 83 mg/dL (8.4-25.7); Bilirubin, Total 0.8 mg/dL (0.2-1.2); Calc. Creatinine Clearance 14 mL/min (70-130); Calcium 8.2 mg/dL (7.8-10.44); Carbon Dioxide 26 mmol/L (23-31); Chloride 97 mmol/L (98-107); Globulin 2.9 g/dL (2.4-3.5); Glucose 87 mg/dL (80-115); Potassium 3.7 mmol/L (3.5-5.1); Protein, Total 4.4 g/dL (5.8-8.1); Sodium 135 mmol/L (136-145)
[2021-03-15 05:22] LABS: Band 6 % (5-11); Lymphocytes 4 % (21-51); MDiff Complete? YES; Monocytes 1 % (0-10); Neutrophil 89 % (42-75); Platelet Morphology Comment Appears Decreased
[2021-03-15 07:32] LABS: Actual Bicarbonate (HCO3a) 25.2 mEq/L (22-28); Base Excess (BEa) 0.1 mEq/L (-2.0 to +3.0); CO2 Tension 42.6 mmHg (35.0-45.0); Calcium, Ionized (arterial) 1.16 mmol/L (1.12-1.30); Carboxyhemoglobin (COHb) 1.4 gm% (0.0-3.0); Hemoglobin (Hb) 7.4 g/dL (14.0-18.0); pH, Arterial 7.39 (7.35-7.45)
[2021-03-15 08:10] LABS: O2 Tension (PaO2), arterial 56.3 mmHg (> 80.0); Puncture Site RRA
[2021-03-15] MEDS: Zinc Sulfate 220 MG CAP PO SCH (09:50)
[2021-03-15] MEDS: Ascorbic Acid 500 mg Chewable Tablet PO SCH (09:50)
[2021-03-15] MEDS: Cholecalciferol (Vitamin D3) 400 UNITS TAB PO SCH (09:50)
[2021-03-15] MEDS: Senokot S 8.6-50 MG TAB PO SCH ×3 (09:50→21:19)
[2021-03-15] MEDS: Pantoprazole 40 MG VIAL IVP SCH (09:51)
[2021-03-15] MEDS: Dexamethasone 10 MG/ML VIAL SLOW IVP SCH (09:54)
[2021-03-15] MEDS: NPH, Human Insulin Isophane 300 UNIT/3 ML VIAL SC SCH ×2 (09:55→21:20)
[2021-03-15 10:38] LABS: Vancomycin, Random 13.6 ug/mL (See Comment)
[2021-03-15] MEDS: Lorazepam 2 MG/ML VIAL SLOW IVP PRN ×2 (11:05→11:39)
[2021-03-15] MEDS: Vecuronium 10 MG VIAL IV PRN (11:39)
[2021-03-15] MEDS ORDERED: Lorazepam 2 MG/ML VIAL SLOW IVP SCH (13:00)
[2021-03-15] MEDS ORDERED: Vecuronium 10 MG VIAL IV SCH (13:00)
[2021-03-15] MEDS: Micafungin 100 MG in Sodium Chloride 0.9% 100 ML IVPB SCH (13:32)
[2021-03-15] MEDS ORDERED: Fentanyl CADD 100 ML ONE (15:21)
[2021-03-15] MEDS: Fentanyl CADD 100 ML IV SCH (15:28)
[2021-03-15] MEDS: Meropenem 500 MG in Sodium Chloride 0.9% 100 ML IVPB SCH (21:19)
[2021-03-16 04:14] LABS: Hemoglobin 6.8 g/dL (14.0-18.0); Mean Corpuscular Volume 96.8 fL (78.0-98.0); Mean Platelet Volume 16.2 fL (7.4-10.4); Platelet Count 14 thou/uL (130-400); RBC Distribution Width 15.2 % (11.5-14.5); Red Blood Cell (RBC) Count 2.27 mill/uL (4.70-6.10); White Blood Cell (WBC) Count 16.3 thou/uL (4.8-10.8)
[2021-03-16 04:33] LABS: Band 16 % (5-11); Hypochromia SLIGHT = 6-15 cells (100X) (0-5/hpf); Lymphocytes 4 % (21-51); MDiff Complete? YES; Monocytes 9 % (0-10); Neutrophil 71 % (42-75); Platelet Morphology Comment Appears Decreased
[2021-03-16 04:39] LABS: Anion Gap 16 mmol/L (10-20); BUN (Urea Nitrogen) 104 mg/dL (8.4-25.7); Calc. Creatinine Clearance 12 mL/min (70-130); Calcium 8.6 mg/dL (7.8-10.44); Carbon Dioxide 25 mmol/L (23-31); Chloride 97 mmol/L (98-107); Glucose 125 mg/dL (80-115); Potassium 4.2 mmol/L (3.5-5.1); Sodium 134 mmol/L (136-145)
[2021-03-16] MEDS ORDERED: Fentanyl CADD 100 ML ONE (06:09)
[2021-03-16] MEDS: Fentanyl CADD 100 ML IV SCH (06:27)
[2021-03-16] MEDS: Metoclopramide HCl 10 MG/2 ML VIAL IVP SCH ×2 (08:15→16:12)
[2021-03-16] MEDS: Senokot S 8.6-50 MG TAB PO SCH ×2 (09:59→20:25)
[2021-03-16] MEDS: Zinc Sulfate 220 MG CAP PO SCH (10:15)
[2021-03-16] MEDS: Pantoprazole 40 MG VIAL IVP SCH (10:15)
[2021-03-16] MEDS: Cholecalciferol (Vitamin D3) 400 UNITS TAB PO SCH (10:15)
[2021-03-16] MEDS: Ascorbic Acid 500 mg Chewable Tablet PO SCH (10:15)
[2021-03-16] MEDS: Lorazepam 2 MG/ML VIAL SLOW IVP PRN ×2 (10:40→21:29)
[2021-03-16] MEDS: NPH, Human Insulin Isophane 300 UNIT/3 ML VIAL SC SCH ×2 (10:40→21:26)
[2021-03-16] MEDS: Vecuronium 10 MG VIAL IV PRN (10:41)
[2021-03-16] MEDS: Dexamethasone 10 MG/ML VIAL SLOW IVP SCH (10:48)
[2021-03-16 10:52] LABS: Vancomycin, Random 12.7 ug/mL (See Comment)
[2021-03-16] MEDS: EPOETIN ALFA-EPBX (ESRD) 10,000 UNIT/ML VIAL IVP SCH ×2 (12:59→16:46)
[2021-03-16] MEDS: Norepinephrine 8 MG/0.9% NS 250 ML IVPB SCH (13:14)
[2021-03-16] MEDS: Vancomycin HCl 500 MG in Sodium Chloride 0.9% 100 ML IVPB SCH (16:12)
[2021-03-16] MEDS: Micafungin 100 MG in Sodium Chloride 0.9% 100 ML IVPB SCH (16:16)
[2021-03-16] MEDS: Meropenem 500 MG in Sodium Chloride 0.9% 100 ML IVPB SCH (21:26)
[2021-03-17] MEDS: Metoclopramide HCl 10 MG/2 ML VIAL IVP SCH ×4 (00:08→23:58)
[2021-03-17] MEDS: Lorazepam 2 MG/ML VIAL SLOW IVP PRN ×5 (01:40→13:46)
[2021-03-17] MEDS ORDERED: Fentanyl CADD 100 ML ONE ×2 (02:04→20:32)
[2021-03-17] MEDS: Fentanyl CADD 100 ML IV SCH ×2 (02:08→20:38)
[2021-03-17 04:10] LABS: Hemoglobin 10.6 g/dL (14.0-18.0); Mean Corpuscular HGB CONC 34.4 g/dL (32.0-36.0); Mean Corpuscular Hemoglobin 31.3 pg (27.0-31.0); Mean Platelet Volume 14.4 fL (7.4-10.4); Platelet Count 28 thou/uL (130-400); RBC Distribution Width 15.4 % (11.5-14.5); Red Blood Cell (RBC) Count 3.38 mill/uL (4.70-6.10); White Blood Cell (WBC) Count 22.9 thou/uL (4.8-10.8)
[2021-03-17 04:18] LABS: Anion Gap 17 mmol/L (10-20); BUN (Urea Nitrogen) 65 mg/dL (8.4-25.7); Calc. Creatinine Clearance 18 mL/min (70-130); Calcium 7.8 mg/dL (7.8-10.44); Carbon Dioxide 25 mmol/L (23-31); Chloride 98 mmol/L (98-107); Glucose 132 mg/dL (80-115); Potassium 3.5 mmol/L (3.5-5.1); Sodium 136 mmol/L (136-145)
[2021-03-17 04:44] LABS: Anisocytosis SLIGHT = 6-15 cells (100X) (0-5/hpf); Band 15 % (5-11); Lymphocytes 3 % (21-51); MDiff Complete? YES; Metamyelocyte 1 % (0-0); Monocytes 2 % (0-10); Neutrophil 79 % (42-75); Nucleated RBC 2 % (0); Platelet Morphology Comment Appears Decreased; Polychromasia SLIGHT = 2-3 cells (100X) (0-2/hpf)
[2021-03-17] MEDS: Zinc Sulfate 220 MG CAP PO SCH (08:20)
[2021-03-17] MEDS: Cholecalciferol (Vitamin D3) 400 UNITS TAB PO SCH (08:20)
[2021-03-17] MEDS: Senokot S 8.6-50 MG TAB PO SCH ×2 (08:20→20:39)
[2021-03-17] MEDS: Pantoprazole 40 MG VIAL IVP SCH (08:20)
[2021-03-17] MEDS: Dexamethasone 10 MG/ML VIAL SLOW IVP SCH (08:20)
[2021-03-17] MEDS: Ascorbic Acid 500 mg Chewable Tablet PO SCH (08:20)
[2021-03-17] MEDS: NPH, Human Insulin Isophane 300 UNIT/3 ML VIAL SC SCH ×2 (08:28→21:08)
[2021-03-17 13:12] VITALS: BMI 25.6
[2021-03-17] MEDS: Micafungin 100 MG in Sodium Chloride 0.9% 100 ML IVPB SCH (13:39)
[2021-03-17] MEDS: Meropenem 500 MG in Sodium Chloride 0.9% 100 ML IVPB SCH (21:06)
[2021-03-18 04:17] LABS: Anion Gap 19 mmol/L (10-20); BUN (Urea Nitrogen) 81 mg/dL (8.4-25.7); Calc. Creatinine Clearance 16 mL/min (70-130); Calcium 7.8 mg/dL (7.8-10.44); Carbon Dioxide 20 mmol/L (23-31); Chloride 99 mmol/L (98-107); Glucose 144 mg/dL (80-115); Potassium 4.2 mmol/L (3.5-5.1); Sodium 134 mmol/L (136-145)
[2021-03-18] MEDS: Norepinephrine 8 MG/0.9% NS 250 ML IVPB SCH ×2 (04:50→18:46)
[2021-03-18 04:56] LABS: Band 35 % (5-11); Hemoglobin 10.6 g/dL (14.0-18.0); Lymphocytes 1 % (21-51); MDiff Complete? YES; Mean Corpuscular HGB CONC 33.4 g/dL (32.0-36.0); Mean Corpuscular Hemoglobin 30.9 pg (27.0-31.0); Mean Corpuscular Volume 92.5 fL (78.0-98.0); Mean Platelet Volume 14.6 fL (7.4-10.4); Monocytes 5 % (0-10); Neutrophil 59 % (42-75); Platelet Count 44 thou/uL (130-400); Platelet Morphology Comment Appears Decreased; RBC Distribution Width 15.9 % (11.5-14.5); RBC Morphology Normal; Red Blood Cell (RBC) Count 3.44 mill/uL (4.70-6.10); White Blood Cell (WBC) Count 29.4 thou/uL (4.8-10.8)
[2021-03-18] MEDS ORDERED: Heparin 10,000 UNITS/ 10 ML VIAL ONE (09:17)
[2021-03-18] MEDS: Senokot S 8.6-50 MG TAB PO SCH ×2 (09:23→21:20)
[2021-03-18] MEDS: Cholecalciferol (Vitamin D3) 400 UNITS TAB PO SCH (09:23)
[2021-03-18] MEDS: Ascorbic Acid 500 mg Chewable Tablet PO SCH (09:23)
[2021-03-18] MEDS: Dexamethasone 10 MG/ML VIAL SLOW IVP SCH (09:23)
[2021-03-18] MEDS: Pantoprazole 40 MG VIAL IVP SCH (09:23)
[2021-03-18] MEDS: Zinc Sulfate 220 MG CAP PO SCH (09:23)
[2021-03-18] MEDS: NPH, Human Insulin Isophane 300 UNIT/3 ML VIAL SC SCH ×2 (09:24→21:05)
[2021-03-18] MEDS: Hydrocortisone Sod Succ/PF 100 mg/2 ml Vial IVP SCH ×3 (09:25→21:19)
[2021-03-18] MEDS: Metoclopramide HCl 10 MG/2 ML VIAL IVP SCH ×2 (09:26→16:41)
[2021-03-18 09:29] LABS: Vancomycin, Random 12.4 ug/mL (See Comment)
[2021-03-18] MEDS: EPOETIN ALFA-EPBX (ESRD) 10,000 UNIT/ML VIAL IVP SCH (13:44)
[2021-03-18] MEDS: Midodrine HCl 5 MG TAB PO SCH ×2 (15:15→21:04)
[2021-03-18] MEDS: Micafungin 100 MG in Sodium Chloride 0.9% 100 ML IVPB SCH (15:15)
[2021-03-18] MEDS: Lorazepam 2 MG/ML VIAL SLOW IVP PRN ×2 (19:00→22:04)
[2021-03-18] MEDS: Meropenem 500 MG in Sodium Chloride 0.9% 100 ML IVPB SCH (21:06)
[2021-03-19] MEDS: Metoclopramide HCl 10 MG/2 ML VIAL IVP SCH ×3 (00:24→15:02)
[2021-03-19] MEDS ORDERED: Fentanyl CADD 100 ML ONE ×2 (00:34→20:31)
[2021-03-19] MEDS: Fentanyl CADD 100 ML IV SCH ×2 (00:37→20:35)
[2021-03-19] MEDS: Hydrocortisone Sod Succ/PF 100 mg/2 ml Vial IVP SCH ×4 (03:55→20:48)
[2021-03-19 05:03] LABS: Hemoglobin 10.2 g/dL (14.0-18.0); Mean Corpuscular Hemoglobin 30.4 pg (27.0-31.0); Mean Platelet Volume 13.5 fL (7.4-10.4); Platelet Count 54 thou/uL (130-400); Red Blood Cell (RBC) Count 3.37 mill/uL (4.70-6.10); White Blood Cell (WBC) Count 30.6 thou/uL (4.8-10.8)
[2021-03-19 05:14] LABS: Anion Gap 17 mmol/L (10-20); BUN (Urea Nitrogen) 51 mg/dL (8.4-25.7); Calc. Creatinine Clearance 23 mL/min (70-130); Calcium 8.6 mg/dL (7.8-10.44); Carbon Dioxide 25 mmol/L (23-31); Chloride 98 mmol/L (98-107); Glucose 171 mg/dL (80-115); Potassium 3.7 mmol/L (3.5-5.1); Sodium 136 mmol/L (136-145)
[2021-03-19 05:43] LABS: Band 19 % (5-11); Large Platelets SLIGHT; Lymphocytes 2 % (21-51); MDiff Complete? YES; Monocytes 2 % (0-10); Neutrophil 77 % (42-75); Platelet Morphology Comment Appears Decreased
[2021-03-19] MEDS: Senokot S 8.6-50 MG TAB PO SCH ×2 (09:26→21:01)
[2021-03-19] MEDS: Dexamethasone 10 MG/ML VIAL SLOW IVP SCH (09:26)
[2021-03-19] MEDS: Midodrine HCl 5 MG TAB PO SCH ×3 (09:27→20:49)
[2021-03-19] MEDS: Cholecalciferol (Vitamin D3) 400 UNITS TAB PO SCH (09:27)
[2021-03-19] MEDS: Ascorbic Acid 500 mg Chewable Tablet PO SCH (09:27)
[2021-03-19] MEDS: Pantoprazole 40 MG VIAL IVP SCH (09:27)
[2021-03-19] MEDS: Zinc Sulfate 220 MG CAP PO SCH (09:27)
[2021-03-19] MEDS: NPH, Human Insulin Isophane 300 UNIT/3 ML VIAL SC SCH ×2 (09:28→20:36)
[2021-03-19] MEDS: Micafungin 100 MG in Sodium Chloride 0.9% 100 ML IVPB SCH (13:34)
[2021-03-19] MEDS: Meropenem 500 MG in Sodium Chloride 0.9% 100 ML IVPB SCH (20:48)
[2021-03-19] MEDS: Lorazepam 2 MG/ML VIAL SLOW IVP PRN (21:00)
[2021-03-20] MEDS: Metoclopramide HCl 10 MG/2 ML VIAL IVP SCH ×3 (00:19→15:10)
[2021-03-20] MEDS: Lorazepam 2 MG/ML VIAL SLOW IVP PRN (00:19)
[2021-03-20] MEDS: Hydrocortisone Sod Succ/PF 100 mg/2 ml Vial IVP SCH ×4 (03:38→21:56)
[2021-03-20] MEDS: HumaLOG 300 UNITS/3 ML VIAL SC PRN (04:02)
[2021-03-20 04:25] LABS: Hemoglobin 11.4 g/dL (14.0-18.0); Mean Corpuscular Hemoglobin 31.2 pg (27.0-31.0); Mean Corpuscular Volume 94.5 fL (78.0-98.0); Platelet Count 51 thou/uL (130-400); RBC Distribution Width 16.1 % (11.5-14.5); Red Blood Cell (RBC) Count 3.67 mill/uL (4.70-6.10); White Blood Cell (WBC) Count 35.6 thou/uL (4.8-10.8)
[2021-03-20 04:57] LABS: Phosphorus 6.1 mg/dL (2.3-4.7)
[2021-03-20 04:58] LABS: Anion Gap 18 mmol/L (10-20); BUN (Urea Nitrogen) 71 mg/dL (8.4-25.7); Calc. Creatinine Clearance 18 mL/min (70-130); Calcium 8.9 mg/dL (7.8-10.44); Carbon Dioxide 23 mmol/L (23-31); Chloride 99 mmol/L (98-107); Glucose 217 mg/dL (80-115); Magnesium 2.1 mg/dL (1.6-2.6); Potassium 3.9 mmol/L (3.5-5.1); Sodium 136 mmol/L (136-145)
[2021-03-20 06:10] LABS: Band 18 % (5-11); Lymphocytes 1 % (21-51); MDiff Complete? YES; Monocytes 4 % (0-10); Neutrophil 77 % (42-75); Platelet Morphology Comment Appears Decreased
[2021-03-20] MEDS: Dexamethasone 10 MG/ML VIAL SLOW IVP SCH (08:04)
[2021-03-20] MEDS: Cholecalciferol (Vitamin D3) 400 UNITS TAB PO SCH (08:05)
[2021-03-20] MEDS: Senokot S 8.6-50 MG TAB PO SCH ×2 (08:05→22:07)
[2021-03-20] MEDS: Zinc Sulfate 220 MG CAP PO SCH (08:05)
[2021-03-20] MEDS: Midodrine HCl 5 MG TAB PO SCH ×3 (08:06→21:56)
[2021-03-20] MEDS: Ascorbic Acid 500 mg Chewable Tablet PO SCH (08:06)
[2021-03-20] MEDS: Norepinephrine 8 MG/0.9% NS 250 ML IVPB SCH (08:09)
[2021-03-20] MEDS: NPH, Human Insulin Isophane 300 UNIT/3 ML VIAL SC SCH ×2 (08:09→21:58)
[2021-03-20] MEDS: Pantoprazole 40 MG VIAL IVP SCH (08:24)
[2021-03-20] MEDS ORDERED: Methylnaltrexone 12 MG/0.6 ML VIAL SC SCH (09:30)
[2021-03-20] MEDS ORDERED: Heparin 10,000 UNITS/ 10 ML VIAL ONE (10:21)
[2021-03-20] MEDS: EPOETIN ALFA-EPBX (ESRD) 10,000 UNIT/ML VIAL IVP SCH (11:51)
[2021-03-20 15:03] VITALS: BP 133/27
[2021-03-20] MEDS: Micafungin 100 MG in Sodium Chloride 0.9% 100 ML IVPB SCH (15:09)
[2021-03-20] MEDS: Fentanyl CADD 100 ML IV SCH (16:22)
[2021-03-20] MEDS: Meropenem 500 MG in Sodium Chloride 0.9% 100 ML IVPB SCH (21:56)
[2021-03-21] MEDS: Metoclopramide HCl 10 MG/2 ML VIAL IVP SCH ×3 (00:03→14:52)
[2021-03-21] MEDS: Lorazepam 2 MG/ML VIAL SLOW IVP PRN ×3 (00:03→20:42)
[2021-03-21] MEDS: Hydrocortisone Sod Succ/PF 100 mg/2 ml Vial IVP SCH ×4 (03:33→20:42)
[2021-03-21] MEDS: Norepinephrine 8 MG/0.9% NS 250 ML IVPB SCH (04:33)
[2021-03-21 04:35] LABS: ALT (SGPT) 9 U/L (8-55); AST (SGOT) 11 U/L (5-34); Albumin 1.6 g/dL (3.4-4.8); Alkaline Phosphatase 238 U/L (40-110); Anion Gap 14 mmol/L (10-20); BUN (Urea Nitrogen) 48 mg/dL (8.4-25.7); Bilirubin, Total 0.8 mg/dL (0.2-1.2); Calc. Creatinine Clearance 25 mL/min (70-130); Calcium 8.7 mg/dL (7.8-10.44); Carbon Dioxide 27 mmol/L (23-31); Chloride 98 mmol/L (98-107); Globulin 3.4 g/dL (2.4-3.5); Glucose 227 mg/dL (80-115); Magnesium 1.9 mg/dL (1.6-2.6); Potassium 3.6 mmol/L (3.5-5.1); Sodium 135 mmol/L (136-145)
[2021-03-21 04:37] LABS: Phosphorus 4.8 mg/dL (2.3-4.7)
[2021-03-21 04:51] LABS: Band 15 % (5-11); Hemoglobin 10.5 g/dL (14.0-18.0); Large Platelets SLIGHT; Lymphocytes 1 % (21-51); MDiff Complete? YES; Mean Corpuscular HGB CONC 31.5 g/dL (32.0-36.0); Mean Corpuscular Hemoglobin 30.1 pg (27.0-31.0); Mean Corpuscular Volume 95.5 fL (78.0-98.0); Mean Platelet Volume 13.2 fL (7.4-10.4); Monocytes 1 % (0-10); Neutrophil 83 % (42-75); Platelet Count 47 thou/uL (130-400); Platelet Morphology Comment Appears Decreased; Polychromasia SLIGHT = 2-3 cells (100X) (0-2/hpf); RBC Distribution Width 16.2 % (11.5-14.5); White Blood Cell (WBC) Count 34.2 thou/uL (4.8-10.8)
[2021-03-21] MEDS: HumaLOG 300 UNITS/3 ML VIAL SC PRN ×2 (06:32→21:35)
[2021-03-21] MEDS: Zinc Sulfate 220 MG CAP PO SCH (09:13)
[2021-03-21] MEDS: Senokot S 8.6-50 MG TAB PO SCH ×2 (09:13→20:43)
[2021-03-21] MEDS: Cholecalciferol (Vitamin D3) 400 UNITS TAB PO SCH (09:13)
[2021-03-21] MEDS: Ascorbic Acid 500 mg Chewable Tablet PO SCH (09:13)
[2021-03-21] MEDS: Dexamethasone 10 MG/ML VIAL SLOW IVP SCH (09:14)
[2021-03-21] MEDS: Midodrine HCl 5 MG TAB PO SCH ×3 (09:14→21:34)
[2021-03-21] MEDS ORDERED: Fentanyl CADD 100 ML ONE (09:20)
[2021-03-21] MEDS: Fentanyl CADD 100 ML IV SCH (09:33)
[2021-03-21] MEDS: NPH, Human Insulin Isophane 300 UNIT/3 ML VIAL SC SCH ×2 (09:39→21:35)
[2021-03-21] MEDS: Pantoprazole 40 MG VIAL IVP SCH (09:56)
[2021-03-21] MEDS: Morphine 4 MG/ML VIAL SLOW IVP PRN (13:30)
[2021-03-21] MEDS: Micafungin 100 MG in Sodium Chloride 0.9% 100 ML IVPB SCH (14:51)
[2021-03-21] MEDS: Meropenem 500 MG in Sodium Chloride 0.9% 100 ML IVPB SCH (21:35)
[2021-03-22] MEDS: Metoclopramide HCl 10 MG/2 ML VIAL IVP SCH (00:02)
[2021-03-22 00:13] VITALS: TEMP 97.7
[2021-03-22] MEDS: Lorazepam 2 MG/ML VIAL SLOW IVP PRN (02:19)
== END 2021-03-22 03:10 | disposition expired | DRG 207 ==
LOC: ERS 11:41 → 2SW 21:44 → CCU 02-23 18:55
PROVIDERS: ADMIT Student in an Organized Health Care Education/Training Program; ATTEND Internal Medicine
PROC: 8E0ZXY6 Isolation (ICD-10-PCS; principal; 2021-02-11)
PROC: 3E0333Z Introduction of Anti-inflammatory into Peripheral Vein, Percutaneous Approach (ICD-10-PCS; 2021-02-11)
PROC: 5A1D70Z Performance of Urinary Filtration, Intermittent, Less than 6 Hours Per Day (ICD-10-PCS; 2021-02-11)
PROC: 5A1955Z Respiratory Ventilation, Greater than 96 Consecutive Hours (ICD-10-PCS; 2021-02-23)
PROC: 0BH17EZ Insertion of Endotracheal Airway into Trachea, Via Natural or Artificial Opening (ICD-10-PCS; 2021-02-23)
PROC: 3E033XZ Introduction of Vasopressor into Peripheral Vein, Percutaneous Approach (ICD-10-PCS; 2021-02-23)
PROC: 0D9670Z Drainage of Stomach with Drainage Device, Via Natural or Artificial Opening (ICD-10-PCS; 2021-02-23)
PROC: 5A12012 Performance of Cardiac Output, Single, Manual (ICD-10-PCS; 2021-02-23)
PROC: 06HY33Z Insertion of Infusion Device into Lower Vein, Percutaneous Approach (ICD-10-PCS; 2021-03-03)
PROC: 0BH18EZ Insertion of Endotracheal Airway into Trachea, Via Natural or Artificial Opening Endoscopic (ICD-10-PCS; 2021-03-03)
PROC: 30233N1 Transfusion of Nonautologous Red Blood Cells into Peripheral Vein, Percutaneous Approach (ICD-10-PCS; 2021-03-06)
PROC: 03HY32Z Insertion of Monitoring Device into Upper Artery, Percutaneous Approach (ICD-10-PCS; 2021-03-21)
DX: U07.1 COVID-19 (principal); J12.82 Pneumonia due to coronavirus disease 2019; J80 Acute respiratory distress syndrome; N18.6 End stage renal disease; J15.9 Unspecified bacterial pneumonia; R65.21 Severe sepsis with septic shock; A41.89 Other specified sepsis; A41.53 Sepsis due to Serratia; I13.2 Hypertensive heart and chronic kidney disease with heart failure and with stage 5 chronic kidney disease, or end stage renal disease; E87.1 Hypo-osmolality and hyponatremia; Z66 Do not resuscitate; Z51.5 Encounter for palliative care; Z23 Encounter for immunization; Z78.1 Physical restraint status; E78.5 Hyperlipidemia, unspecified; E11.22 Type 2 diabetes mellitus with diabetic chronic kidney disease; E78.00 Pure hypercholesterolemia, unspecified; D63.1 Anemia in chronic kidney disease; E88.09 Other disorders of plasma-protein metabolism, not elsewhere classified; I50.9 Heart failure, unspecified; E87.5 Hyperkalemia; E11.65 Type 2 diabetes mellitus with hyperglycemia; R57.8 Other shock; I46.8 Cardiac arrest due to other underlying condition; E11.649 Type 2 diabetes mellitus with hypoglycemia without coma; D72.829 Elevated white blood cell count, unspecified; Y95 Nosocomial condition; D69.6 Thrombocytopenia, unspecified; Z99.2 Dependence on renal dialysis; Z79.899 Other long term (current) drug therapy; Z83.3 Family history of diabetes mellitus; E83.51 Hypocalcemia
CPT/HCPCS: 36415; 36416; 36430; 36600; 71045; 71275; 80048; 80053; 80202; 82553; 82728; 82805; 83540; 83550; 83605; 83735; 83880; 83970; 84100; 84145; 84484; 85025; 85027; 86140; 86850; 86900; 86901; 87040; 87070; 87077; 87149; 87186; 87205; 87340; 90471; 90662; 90732; 90935; 93005; 94002; 94003; 96374; 96375; C9113; G0008; G0009; G0257; J0171; J0360; J0461; J0692; J1100; J1644; J1720; J1815; J2060; J2185; J2248; J2270; J2543; J2704; J2765; J3010; J3370; J3490; J7030; J7050; J7070; P9016; Q5105; Q9967; U0002